=== PATIENT | female | born 1940 | race Two or more races ===

== ENCOUNTER 2016-11-15 21:35 | Emergency (ER) | payer MEDICARE, BC ==
[2016-11-15] MEDS ORDERED: Acetaminophen TAB* 325 MG PO ONE (22:56)
--- NOTE | 2016-11-16 01:14 | ED ---
louis Mao Timothy, scribed for KaitlinRamon on 11/15/16 at 2250 . Lower Extremity - HPI Summary HPI Summary: Kianna Askew is a 76 yo female presenting to [facility] with acute on chronic 5/ 10 right hip and RLE pain. She states she had a mechanical fall at 2030 today. She states movement increases pain. She denies LOC or other injury. Her MHx includes colon CA, scoliosis, arthritis, chronic right hip/lower back pain, HTN. - History of Current Complaint Chief Complaint: EDGeneral Stated Complaint: FALL Time Seen by Provider: 11/15/16 22:32 Hx Obtained From: Patient Mechanism Of Injury: Fall From A Standing Position Onset of Pain: Immediate Onset/Duration: Still Present Severity Initially: Moderate Severity Currently: Moderate Pain Intensity: 5 Pain Scale Used: 0-10 Numeric Timing: Constant Location: Is Discrete @ - right hip and leg Associated Signs And Symptoms: Positive: Knee Pain - right Aggravating Factor(s): Ambulation, Movement, Weight Bearing Alleviating Factor(s): Rest Able to Bear Weight: Yes - barely - Allergies/Home Medications Allergies/Adverse Reactions: Allergies Allergy/AdvReac Type Severity Reaction Status Date / Time No Known Allergies Allergy Verified 09/14/16 06:39 PMH/Surg Hx/FS Hx/Imm Hx Endocrine/Hematology History: Denies: Hx Diabetes, Hx Systemic Lupus Erythematosus Cardiovascular History: Reports: Hx Hypertension Denies: Hx Congestive Heart Failure, Hx Pacemaker/ICD History: Reports: Other Problems/Disorders - OCCASIONAL UTI, LAST TIME 2015 Denies: Hx Dialysis, Hx Renal Disease Musculoskeletal History: Reports: Hx Scoliosis, Other Musculoskeletal History - SCOLIOSIS-RIGHT LOWER BACK PAIN INTO THE HIP AT TIMES Denies: Hx Rheumatoid Arthritis Comment Only: Hx Back Problems - low back pain, Hx Osteoporosis - OSTEOPENIA Sensory History: Reports: Hx Cataracts - BILATERAL, Hx Contacts or Glasses Denies: Hx Hearing Aid Opthamlomology History: Reports: Hx Cataracts - BILATERAL, Hx Contacts or Glasses Psychiatric History: Denies: Hx Panic Disorder - Cancer History Cancer Type, Location and Year: colon Hx Chemotherapy: No Hx Radiation Therapy: No - Surgical History Surgery Procedure, Year, and Place: T&A as child 9 AGE 8; TUBAL LIGATION 1981 ; COLONOSCOPY 03/23/2016 3X POLYPS REMOVED WHICH WERE BENIGN; ADDITIONAL FINDING OF COLONOSCOPY THERE IS A POYPS OF SIGNIFICANCE TO BE REMOVED 04/15/2016 FOUND TO BE CANCEROUS.partial colectomy 03/2016 Hx Anesthesia Reactions: No Infectious Disease History: Denies: Traveled Outside the [place] in Last 30 Days - Family History Known Family History: Negative: Cardiac Disease, Hypertension, Diabetes Family History: NON CONTRIBUTORY - Social History Alcohol Use: Occasionally Alcohol Amount: glass of wine Substance Use Type: Reports: None Smoking Status (MU): Never Smoked Tobacco Review of Systems Constitutional: Negative Eyes: Negative ENT: Negative Cardiovascular: Negative Respiratory: Negative Gastrointestinal: Negative Genitourinary: Negative Musculoskeletal: Other - right hip and RLE pain Skin: Negative Neurological: Negative Psychological: Normal All Other Systems Reviewed And Are Negative: Yes Physical Exam Triage Information Reviewed: Yes Vital Signs On Initial Exam: Initial Vitals Temp Pulse Resp BP Pulse Ox 98.2 F 76 16 153/79 100 11/15/16 21:50 11/15/16 21:50 11/15/16 21:50 11/15/16 21:50 11/15/16 21:50 Vital Signs Reviewed: Yes Appearance: Positive: Well-Appearing, No Pain Distress Skin: Positive: Warm, Skin Color Reflects Adequate Perfusion, Dry, Other - abrasion over right knee Head/Face: Positive: Normal Head/Face Inspection Eyes: Positive: EOMI, OLGA ENT: Positive: Normal ENT inspection, Hearing grossly normal. Negative: Muffled /hoarse voice Neck: Positive: Supple, Nontender Respiratory/Lung Sounds: Positive: Clear to Auscultation, Breath Sounds Present Cardiovascular: Positive: RRR, Pulses are Symmetrical in both Upper and Lower Extremities Abdomen Description: Positive: Nontender, Soft Bowel Sounds: Positive: Present Musculoskeletal: Positive: Pain @ - right hip, lateral aspect of right buttock. Negative: Strength/ROM Intact - restricted ROM at right hip, no neurovascular deficit Neurological: Positive: Normal, Sensory/Motor Intact, Alert, Oriented to Person Place, Time Psychiatric: Positive: Normal Diagnostics - Vital Signs Vital Signs Temp Pulse Resp BP Pulse Ox 11/15/16 21:50 98.2 F 76 16 153/79 100 - Laboratory Lab Statement: Any lab studies that have been ordered have been reviewed, and results considered in the medical decision making process. - Radiology R hip XR Xray Interpretation: No Acute Changes - No acute disease Radiology Interpretation Completed By: ED Physician R knee XR Xray Interpretation: No Acute Changes - No acute disease Radiology Interpretation Completed By: ED Physician - CT Lower extremeties CT Interpretation: No Acute Changes - Impression: no femoral or acetabular fracture seen. No other fracture identified. CT Interpretation Completed By: Radiologist pelvis CT Interpretation: No Acute Changes - Impression: no femoral or acetabular fracture seen. No other fracture identified. CT Interpretation Completed By: Radiologist Re-Evaluation - Re-Evaluation First Eval Re-Evaluation Time: 01:01 Change: Unchanged Comment: Pt is informed of imaging results. She is agreeable to be discharged. Lower Extremity Course/Dx - Course Assessment/Plan: Kianna Askew is a 76 yo female presenting to [facility] with right hip and RLE pain S/P a fall. After review of her negative XR's, and negative CT, as well as review of her lab work, and discussion with Dr. Bailey, she will be discharged home with right hip sprain. - Diagnoses Provider Diagnoses: Fall, Right hip pain, Sprain of right hip - Physician Notifications Discussed Care of Patient With: 0055 - Dr. Bailey (hospitalist) - discussed Pt condition, recommends follow up with orthopedics Discharge - Discharge Plan Condition: Stable Disposition: HOME Patient Education Materials: Hip Pain (ED), Hip Sprain (ED) Referrals: Teresita Santiago MD [Medical Doctor] - 2 Days Additional Instructions: Please follow up with orthopedics regarding your visit to the emergency department today. Return to the emergency department with any new or recurring symptoms. The documentation as recorded by the louis hutchison Timothy accurately reflects the service I personally performed and the decisions made by , Ramon Madrigal.
[2016-11-16 05:59] VITALS: BP 144/72
--- NOTE | 2016-11-16 07:34 | RAD ---
INDICATION: Chronic right hip pain. Fall. COMPARISON: None TECHNIQUE: An AP view of the pelvis and AP views of the hip in neutral and abducted position were obtained FINDINGS: Bones: There are no acute bony findings. There is degenerative change of the lumbar spine with a levoscoliosis. Joint spaces: The hips articulate normally. The joint spaces are preserved. SI joints/symphysis: The SI joints and symphysis are intact. Other: None IMPRESSION: NO ACUTE BONY FINDINGS
--- NOTE | 2016-11-16 07:38 | RAD ---
INDICATION: Right knee pain COMPARISON: None TECHNIQUE: AP, lateral, tunnel, and sunrise views were obtained. FINDINGS: There is minor patellofemoral spurring. There is mild narrowing about the lateral joint space with condylar spurring. There are no additional significant osseous or changes. There is no joint effusion. IMPRESSION: MINOR PATELLOFEMORAL AND LATERAL JOINT SPACE OSTEOARTHRITIS
--- NOTE | 2016-11-16 07:53 | RAD ---
Indication: Increased RIGHT hip and lower extremity pain post fall this evening. History of chronic RIGHT hip pain. Comparison: November 15, 2016 radiographs. Technique: Noncontrast CT pelvis and dedicated small [id number] images of the RIGHT hip. Multiplanar reformation. Report: The RIGHT hip is normally located. No CT evidence for fracture of the RIGHT proximal femur or acetabulum. Negative for pelvic fracture or joint diastases. Mild marginal osteophytosis and minimal axial joint space narrowing. Enthesophytes at the greater trochanter. No suggestion of hip joint effusion. Similar osteoarthritis at the LEFT hip. Advanced lumbar sacral spine degenerative spondylosis and facet joint osteoarthritis. Nonspecific subcutaneous edema at the medial RIGHT gluteal fold. No loculated hematoma in the subcutaneous tissue plane or retroperitoneum evident. Atherosclerotic calcification of the visualized abdominal aorta and iliac arteries without aneurysm in the [id number]. Negative for lymphadenopathy. LEFT lower quadrant large bowel anastomosis noted. No suspicious finding of the visualized bowel loops. Unremarkable visualized distal ureters, urinary bladder, uterus, and adnexal regions. IMPRESSION: No CT evidence for RIGHT hip or pelvic fracture. Mild bilateral hip joint osteoarthritis.
--- NOTE | 2016-11-16 07:53 | RAD ---
Indication: Increased RIGHT hip and lower extremity pain post fall this evening. History of chronic RIGHT hip pain. Comparison: November 15, 2016 radiographs. Technique: Noncontrast CT pelvis and dedicated small [id number] images of the RIGHT hip. Multiplanar reformation. Report: The RIGHT hip is normally located. No CT evidence for fracture of the RIGHT proximal femur or acetabulum. Negative for pelvic fracture or joint diastases. Mild marginal osteophytosis and minimal axial joint space narrowing. Enthesophytes at the greater trochanter. No suggestion of hip joint effusion. Similar osteoarthritis at the LEFT hip. Advanced lumbar sacral spine degenerative spondylosis and facet joint osteoarthritis. Nonspecific subcutaneous edema at the medial RIGHT gluteal fold. No loculated hematoma in the subcutaneous tissue plane or retroperitoneum evident. Atherosclerotic calcification of the visualized abdominal aorta and iliac arteries without aneurysm in the [id number]. Negative for lymphadenopathy. LEFT lower quadrant large bowel anastomosis noted. No suspicious finding of the visualized bowel loops. Unremarkable visualized distal ureters, urinary bladder, uterus, and adnexal regions. IMPRESSION: No CT evidence for RIGHT hip or pelvic fracture. Mild bilateral hip joint osteoarthritis.
== END 2016-11-16 01:29 | disposition home or self-care (01) ==
LOC: ED 21:35
DX: S73.101A Unspecified sprain of right hip, initial encounter (principal); M25.551 Pain in right hip; W19.XXXA Unspecified fall, initial encounter; Y93.9 Activity, unspecified; Y92.9 Unspecified place or not applicable; Y99.9 Unspecified external cause status; S33.5XXD Sprain of ligaments of lumbar spine, subsequent encounter; M16.11 Unilateral primary osteoarthritis, right hip; M41.87 Other forms of scoliosis, lumbosacral region; M51.37 Other intervertebral disc degeneration, lumbosacral region; M47.897 Other spondylosis, lumbosacral region; X58.XXXD Exposure to other specified factors, subsequent encounter
CPT/HCPCS: 72110; 72192; 99282; A9270-GY

== ENCOUNTER 2018-11-28 20:18 | Emergency (ER) | payer MEDICARE, OTHER ==
--- OUTSIDE RECORDS SUMMARY | 2018-11-28 20:51 | XMS REPORT | Continuity of Care Document ---
:1940 External Reference #:[id number] Author Name Farrah Conroy Care Team Providers Name Role Phone Patricia Joe MD Primary Care Physician Unavailable Payers Date Identification Numbers Payment Provider Subscriber Policy Number: [id number] Medicare Kianna Askew PayID: [id number] [address] [place] [address] Policy Number: [id number] [facility] Kianna Salase PayID: [id number] [address] [place] [address] Effective: 2006 Policy Number: [id number] Medicare Kianna Askew Expires: 2018 PayID: [id number] [address] [place] [address] Effective: 2016 Policy Number: [id number] [facility] Kianna Farrisgie Ins Onset: 2016 Group Number: [id number] PayID: [id number] JUAN JOSE Barnes [id number] Expires: 2018 Policy Number: [id number] [employer]na [employer] Group Number: [id number] [address] PayID: [id number] [place] [address] PayID: [id number] Medicare D - Drug Plan Kianna Askew Advance Directives Type Date Description Status Comment MOLST 04/05/2018 MOLST Current and Verified Problems Date Description Provider Status Onset: 03/25/2016 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 T3 with 29 (-) lymph nodes. T3N0M0 adenocarcinoma. Is seeing Dr. Garcia Onset: 10/18/2007 Benign essential hypertension Colt Beaulieu M.D.,FACP Active Onset: 07/19/2016 Thyroid nodule Roosevelt Reyes NP Active Note: stable solid L thyroid nodule on 07/19/16 u/s radiolagist recommend f/ u 6 mo w/ repeat u/s Onset: 11/10/2016 Scoliosis of lumbar spine Denise Stern M.D. 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 Onset: 04/05/2018 Postmenopausal osteopenia Meli Power M.D.,FACP Onset: 04/25/2016 Essential hypertension Roosevelt Reyes NP Inactive Inactive: 10/11/2016 Onset: 10/18/2007 Osteochondropathy Colt Beaulieu M.D.,FACP Inactive Inactive: 04/05/2018 Note: low BMD forearm 2005 Onset: 11/01/2012 Nuclear cataract Colt Beaulieu M.D.,FACP Resolved Resolved: 10/11/2016 Family History Date Family Member(s) Observation Comments : (age 52 Father due to [place] Years) Father due to Heart () - in 40s, Disease ?RF : (age 84 Mother due to [place] Years) Siblings 1 First Brother Hypertension First Brother Leukemia ALL Social History Type Date Description Comments Sex Unknown Marital Status Significant Other Lives With Partner 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 Omeprazole 05/30/ Active Capsules 20mg 30cap 1 by mouth Elieser Grissom 2018 s every day MD Favian Vitamin D / Active Tablets 1000Unit 1 by mouth Unknown 0000 everyday Fish Oil / Active Capsules 1200mg 1 by mouth Unknown 0000 daily Tylenol / Active Capsules 325mg 2 tablets Unknown 0000 every 4 hours as needed for pain Myrbetriq / Active Tablets 50mg 1 by mouth Unknown 0000 ER 24HR every day (rx'd by Dr. Mina) Ibuprofen / Active Tablets 200mg as needed, Unknown 0000 alternting with tylenol Cyclobenzaprine 07/18/ Hx Tablets 5mg 14tab take one M54.41 Zsofia HCL 2018 - s tablet by Yan, 10/10/ mouth 3x [employer] 2019 daily as needed for back pain Aspercreme 07/18/ Hx Patches 4% 10uni 1 path M54.41 Zsofia Lidocaine 2018 - ts daily for Yan, 11/09/ back pain [employer] 2018 G89.4 Suprep 05/02/2018 - Hx Solution 17.5-3.13-1.6GM/180ML 1units Take as Elieser Grissom Bowel Prep 11/09/2018 directed Андрей Ballesteros the day before procedure Tramadol 04/05/2018 - Hx Tablets 50mg 30tabs Take 1 tab M5 Zsofia HCL 10/10/2018 po qday, do 4. Yan, not drive [address] SAFET[employer] NET [employer] when taking this medication. M47.26 Ciprofloxacin HCL 11/03/2017 - Hx Tablets 250mg 10tabs take 1 tab R30.0 Zsofia 02/28/2018 by mouth Yan, twice a day [employer] for 5 days Omeprazole 08/28/2017 - Hx Capsules 20mg 90caps 1 by mouth R63.4 Carmen Avelar 02/28/2018 every day Sharron Beaulieu, for 2 wks M.D.,FACP then prn Felodipine ER 08/28/2017 - Hx Tablets ER 2.5mg 90tabs Take One I10 Zsofia 04/05/2018 24HR Tablet By Yan, Mouth Every [employer] Day Lisinopril 07/21/2017 - Hx Tablets 5mg 90tabs 1 by mouth I10 Colt 07/27/2017 every day Sharron Beaulieu M.D.,FACP Felodipine ER 03/21/2017 - Hx Tablets ER 2.5mg 90tabs 1 by mouth I10 Colt 07/21/2017 24HR every day Sharron Beaulieu M.D.,JOHNP Amoxicillin 03/08/2017 - Hx Tablets 500mg 40tabs 2 tabs by Colt 03/18/2017 mouth twice Sharron Beaulieu, a day for Kerri,JOHNP 10 days Lumbo Sacral 01/25/2017 - Hx M41.26 Dirk Corset, 10-12 02/28/2018 Doroat, Inches High With Kerri Some Support Cyclobenzaprine 11/10/2016 - Hx Tablets 5mg 10tabs take one S33.5xx Denise HCL 01/06/2017 tablet by Kraig Stern, mouth at M.D. night as needed for spasms Doxycycline 08/16/2016 - Hx Capsules 100mg 2caps 2 tablets x Roosevelt Hyclate 08/17/2016 1 day Kazakh, [employer] Triamcinolone 05/02/2016 - Hx Cream 0.1% 30gm apply thin N76.0 Roosevelt Acetonide 05/16/2016 layer Kazakh, topically [employer] COORDINATOR twice a day to affected area [id number] Tylenol Extra 03/03/2016 - Hx Tablets 500mg 1 tab po M54.41 Roosevelt Strength 05/02/2016 qid every Kazakh, 4-6 hours [employer] COORDINATOR prn pain Amoxicillin/Clavul 08/28/2015 - Hx Tablets 875-125 20tabs 1 tablet by J01.90 Roosevelt anate Potassium 09/07/2015 mg mouth twice Kazakh, a day x's [employer] PRO[employer] COORDINATOR 10 days Fluconazole 01/06/2015 - Hx Tablets 150mg 2tabs 1 tablet by 616.10 Roosevelt 01/13/2015 mouth daily Kazakh, today, then COMM[employer] PROGRAM COORDINATOR repeat in 1 week. Doxycycline 03/08/2013 - Hx Tablets 100mg 4tabs 2 tabs po Colt Hyclate 05/10/2013 x1 then prn [facility] Felodipine ER 11/02/2010 - Hx Tablets ER 5mg 90tabs Take One I10 Carmen Avelar 03/21/2017 24HR Tablet By Sharron Beaulieu, Mouth Every M.D.,FACP Morning Fish Oil 05/21/2010 - Hx Capsules 1000mg 60caps 1 po qd Colt 05/29/2014 Sharron Beaulieu M.D.,FACP Vitamin B12 05/21/2010 - Hx Tablets ER 1000mcg 90tabs po qd Colt 02/27/2012 Sharron Beaulieu M.D.,FACP Vitamin D 10/30/2007 - Hx Capsules 400Unit qd PO Colt 11/01/2012 Sharron Beaulieu M.D.,FACP Felodipine ER 10/18/2007 - Hx Tablets ER 5mg 90tabs 1 PO qd Colt 11/02/2010 24HR Sharron Beaulieu M.D.,FACP Calcium 600-D 10/18/2007 - Hx Tablets 600/200 180tabs PO bid Colt 11/01/2012 Sharron Beaulieu M.D.,FACP Calcium 1200 + D - Hx Chewtabs 1200-10 30units 1 po qd Unknown 06/25/2013 00mg-Un it Vitamin D3 High - Hx Capsules 2000 1 tab daily Unknown Potency 07/18/2016 Ibuprofen - Hx Tablets 200mg as needed Unknown 05/02/2016 Fish Oil Burp-Less - Hx Capsules 1000mg Daily Unknown 01/06/2017 Calcium 600 - Hx Tablets 600mg 1 by mouth Unknown 04/23/2016 every day Probiotic - Hx Capsules 2 by mouth Unknown 09/06/2016 every day Multi Complete - Hx Capsules daily Unknown 09/06/2016 Darifenacin - Hx Tablets ER 7.5mg 1 tab daily Unknown Hydrobromide ER 11/15/2016 24HR (taking 15mg daily at this time) Ibuprofen - Hx Capsules 200mg as needed Unknown 06/09/2017 Darifenacin - Hx Tablets ER 15mg Take One Unknown Hydrobromide ER 01/06/2017 24HR Tablet By Mouth Every Day Darifenacin - Hx Tablets ER 7.5mg Take One Unknown Hydrobromide ER 07/27/2017 24HR Tablet By Mouth Every Day Immunizations CPT Code Status Date Vaccine Reaction Lot # [id number] Given 04/05/2018 Tetanus And Diptheria (Td) [id number] For Adult Use Preservative Free 54164 Given 08/03/2017 Influenza Virus Vaccine, Quadrivalent, Split, Preservative Free 86273 Given 08/14/2016 Influ Virus Vaccine, Quadrivalent, Split Virus, [place] [address] Given 07/16/2015 Influenza Virus Vaccine, no reaction noted. Pt [id number] Quadrivalent, Split, consented to flu Preservative Free injection and NYSIIS. 73555 Given 07/16/2015 Pneumococcal Conjugate No reaction noted [id number] Vaccine 13 Valent For Intramuscular Use 80386 Given 06/25/2013 Flu Vaccine Split Virus [id number] Preservative Free For Indiv 3Yr Older 07584 Given 07/04/2012 Influenza Virus 3Yrs & Over 73410 Given 01/12/2012 Tdap - [id number] Tetanus/Diptheria/Acellular Pertussis Q2038 Given 06/13/2011 Fluzone Vaccine [id number] 75529 Given 06/03/2008 Zoster (Zostavax) 37299 Given 07/15/2003 Pneumonia Vaccine 64823 Given 07/15/2003 Pneumonia Vaccine Vital Signs Date Vital Result Comment 11/23/2018 3:03pm Height 63.5 inches 5'3.50" Weight 132.38 lb Heart Rate 73 /min BP Systolic Sitting 186 mmHg BP Diastolic Sitting 95 mmHg BP Systolic Standing 132 mmHg pulse - 78 BP Diastolic Standing 84 mmHg pulse - 78 BP Systolic Lying Down 145 mmHg pulse - 72 BP Diastolic Lying Down 98 mmHg pulse - 72 BP Systolic Recheck 150 mmHg pulse - 72 BP Diastolic Recheck 92 mmHg pulse - 72 Body Temperature 96.3 F O2 % BldC Oximetry 98 % BMI (Body Mass Index) 23.1 kg/m2 11/20/2018 11:42am Height 63.5 inches 5'3.50" Weight 133.00 lb Heart Rate 69 /min BP Systolic 171 mmHg 183/90 home BP machine BP Diastolic 88 mmHg 183/90 home BP machine Body Temperature 96.3 F O2 % BldC Oximetry 99 % BMI (Body Mass Index) 23.2 kg/m2 11/09/2018 11:43am Height 63.5 inches 5'3.50" Weight 131.00 lb Heart Rate 78 /min BP Systolic 121 mmHg BP Diastolic 71 mmHg Body Temperature 96.9 F O2 % BldC Oximetry 98 % BMI (Body Mass Index) 22.8 kg/m2 10/10/2018 9:47am Height 63.5 inches 5'3.50" Weight 130.38 lb Heart Rate 76 /min BP Systolic 118 mmHg BP Diastolic 72 mmHg Body Temperature 96.5 F BMI (Body Mass Index) 22.7 kg/m2 07/25/2018 3:17pm Height 63.5 inches 5'3.50" Weight 122.31 lb Heart Rate 79 /min BP Systolic Sitting 118 mmHg BP Diastolic Sitting 70 mmHg O2 % BldC Oximetry 97 % BMI (Body Mass Index) 21.3 kg/m2 07/18/2018 9:21am Height 63.5 inches 5'3.50" Weight 122.38 lb Heart Rate 73 /min BP Systolic Sitting 118 mmHg BP Diastolic Sitting 78 mmHg O2 % BldC Oximetry 98 % BMI (Body Mass Index) 21.3 kg/m2 06/18/2018 2:26pm Height 63.5 inches 5'3.50" Weight 124.38 lb Heart Rate 76 /min BP Systolic 112 mmHg BP Diastolic 67 mmHg Respiratory Rate 16 /min Body Temperature 97.6 F Pain Level 0 O2 % BldC Oximetry 99 % BMI (Body Mass Index) 21.7 kg/m2 04/05/2018 9:45am Height 63.5 inches 5'3.50" Weight 123.00 lb Heart Rate 75 /min BP Systolic Sitting 118 mmHg BP Diastolic Sitting 58 mmHg Body Temperature 96.5 F O2 % BldC Oximetry 99 % BMI (Body Mass Index) 21.4 kg/m2 03/30/2018 10:42am Height 65 inches 5'5" Weight 129.00 lb BP Systolic Sitting 120 mmHg BP Diastolic Sitting 60 mmHg BMI (Body Mass Index) 21.5 kg/m2 02/28/2018 11:11am Height 65 inches 5'5" Weight 129.00 lb BP Systolic Sitting 122 mmHg BP Diastolic Sitting 78 mmHg Pain Level 6 BMI (Body Mass Index) 21.5 kg/m2 11/03/2017 4:12pm BP Systolic Sitting 138 mmHg BP Diastolic Sitting 84 mmHg 11/03/2017 1:58pm Weight 126.00 lb Heart Rate 80 /min BP Systolic Sitting 150 mmHg BP Diastolic Sitting 82 mmHg Body Temperature 96.5 F O2 % BldC Oximetry 94 % 09/26/2017 10:59am Weight 128.00 lb BP Systolic Sitting 100 mmHg BP Diastolic Sitting 50 mmHg Body Temperature 97.4 F 08/28/2017 1:28pm Weight 128.00 lb Heart Rate 76 /min BP Systolic Sitting 152 mmHg BP Diastolic Sitting 80 mmHg Body Temperature 96.4 F O2 % BldC Oximetry 96 % 07/27/2017 3:26pm Weight 123.00 lb Heart Rate 72 /min BP Systolic Sitting 110 mmHg BP Diastolic Sitting 66 mmHg Body Temperature 97.1 F O2 % BldC Oximetry 96 % 03/21/2017 3:17pm Height 63.5 inches 5'3.50" Weight 128.75 lb Heart Rate 69 /min BP Systolic Sitting 134 mmHg BP Diastolic Sitting 80 mmHg BP Systolic Recheck 130 mmHg BP Diastolic Recheck 82 mmHg Body Temperature 96.6 F O2 % BldC Oximetry 98 % BMI (Body Mass Index) 22.4 kg/m2 03/08/2017 10:45am Weight 130.25 lb Heart Rate 69 /min BP Systolic 116 mmHg BP Diastolic 68 mmHg Body Temperature 97.5 F O2 % BldC Oximetry 99 % 01/25/2017 8:43am Height 64.5 inches 5'4.50" Weight 132.00 lb Heart Rate 79 /min BP Systolic 110 mmHg BP Diastolic 68 mmHg Respiratory Rate 16 /min Body Temperature 97.5 F Pain Level 7 BMI (Body Mass Index) 22.3 kg/m2 01/06/2017 10:34am Weight 134.00 lb Heart Rate 76 /min BP Systolic Sitting 110 mmHg BP Diastolic Sitting 72 mmHg Body Temperature 97.7 F O2 % BldC Oximetry 97 % 11/15/2016 9:46am Weight 137.75 lb Heart Rate 72 /min BP Systolic 130 mmHg BP Diastolic 80 mmHg Body Temperature 96.6 F O2 % BldC Oximetry 98 % 11/10/2016 8:21am Weight 135.00 lb Heart Rate 70 /min BP Systolic Sitting 178 mmHg BP Diastolic Sitting 90 mmHg Body Temperature 97.3 F O2 % BldC Oximetry 98 % 10/11/2016 1:32pm Height 64 inches 5'4" Weight 137.00 lb Heart Rate 66 /min BP Systolic 140 mmHg BP Diastolic 80 mmHg Body Temperature 97.6 F O2 % BldC Oximetry 98 % BMI (Body Mass Index) 23.5 kg/m2 09/06/2016 2:03pm Weight 136.00 lb Heart Rate 78 /min BP Systolic Sitting 114 mmHg BP Diastolic Sitting 70 mmHg Body Temperature 97.4 F 07/18/2016 10:36am Weight 135.25 lb Heart Rate 90 /min BP Systolic Sitting 120 mmHg BP Diastolic Sitting 70 mmHg Body Temperature 97.3 F O2 % BldC Oximetry 98 % 05/02/2016 2:04pm Height 64 inches 5'4" Weight 129.25 lb Heart Rate 70 /min BP Systolic Sitting 118 mmHg BP Diastolic Sitting 66 mmHg Body Temperature 98.6 F O2 % BldC Oximetry 96 % BMI (Body Mass Index) 22.2 kg/m2 04/25/2016 1:24pm Height 64 inches 5'4" Weight 129.25 lb Heart Rate 70 /min BP Systolic 124 mmHg BP Diastolic 70 mmHg Body Temperature 98.1 F O2 % BldC Oximetry 97 % BMI (Body Mass Index) 22.2 kg/m2 03/03/2016 3:17pm Height 64 inches 5'4" Weight 136.00 lb Heart Rate 68 /min BP Systolic Sitting 110 mmHg BP Diastolic Sitting 68 mmHg Body Temperature 96.9 F O2 % BldC Oximetry 98 % BMI (Body Mass Index) 23.3 kg/m2 02/18/2016 12:55pm Height 64 inches 5'4" Weight 140.00 lb Heart Rate 66 /min BP Systolic Sitting 134 mmHg BP Diastolic Sitting 82 mmHg Body Temperature 98.7 F O2 % BldC Oximetry 98 % BMI (Body Mass Index) 24.0 kg/m2 08/28/2015 9:58am Height 64 inches 5'4" Weight 138.00 lb Heart Rate 64 /min BP Systolic Sitting 138 mmHg BP Diastolic Sitting 72 mmHg Body Temperature 96.9 F O2 % BldC Oximetry 95 % BMI (Body Mass Index) 23.7 kg/m2 07/16/2015 4:32pm Height 64 inches 5'4" Weight 138.25 lb Heart Rate 64 /min BP Systolic Sitting 132 mmHg BP Diastolic Sitting 82 mmHg Respiratory Rate 14 /min Body Temperature 97.3 F tympanic Pain Level 1 O2 % BldC Oximetry 94 % room air. was 86 and pt took a deep breath. 02 up BMI (Body Mass Index) 23.7 kg/m2 01/06/2015 11:17am Weight 141.00 lb Heart Rate 70 /min BP Systolic Sitting 128 mmHg BP Diastolic Sitting 74 mmHg Body Temperature 97.8 F O2 % BldC Oximetry 98 % 07/15/2014 9:05am Weight 142.50 lb Heart Rate 68 /min BP Systolic Sitting 130 mmHg BP Diastolic Sitting 78 mmHg Body Temperature 96.8 F 05/29/2014 10:40am Weight 141.75 lb Heart Rate 64 /min BP Systolic Sitting 126 mmHg BP Diastolic Sitting 68 mmHg Body Temperature 96.6 F 06/25/2013 11:02am Weight 140.00 lb Heart Rate 60 /min BP Systolic Sitting 120 mmHg BP Diastolic Sitting 62 mmHg 05/10/2013 3:58pm Height 64.25 inches 5'4.25" Weight 141.00 lb Heart Rate 80 /min BP Systolic Sitting 120 mmHg BP Diastolic Sitting 64 mmHg BMI (Body Mass Index) 24.0 kg/m2 11/01/2012 9:37am Height 64.75 inches 5'4.75" Weight 145.00 lb Heart Rate 64 /min BP Systolic 135 mmHg BP Diastolic 70 mmHg Respiratory Rate 14 /min BMI (Body Mass Index) 24.3 kg/m2 02/27/2012 10:02am Height 65 inches 5'5" Weight 145.00 lb Heart Rate 72 /min BP Systolic Sitting 124 mmHg BP Diastolic Sitting 70 mmHg BMI (Body Mass Index) 24.1 kg/m2 01/12/2012 2:17pm Height 65 inches 5'5" Weight 143.00 lb Heart Rate 68 /min BP Systolic Sitting 128 mmHg BP Diastolic Sitting 78 mmHg BMI (Body Mass Index) 23.8 kg/m2 06/13/2011 9:06am Height 65 inches 5'5" Weight 145.00 lb Heart Rate 78 /min BP Systolic Sitting 122 mmHg BP Diastolic Sitting 60 mmHg BMI (Body Mass Index) 24.1 kg/m2 05/21/2010 10:48am Height 65 inches 5'5" Weight 139.00 lb Heart Rate 62 /min BP Systolic Sitting 125 mmHg BP Diastolic Sitting 72 mmHg BMI (Body Mass Index) 23.1 kg/m2 04/29/2009 1:15pm Weight 144.00 lb Heart Rate 76 /min BP Systolic Sitting 120 mmHg BP Diastolic Sitting 64 mmHg Respiratory Rate 16 /min 07/15/2008 2:39pm Height 65 inches 5'5" Weight 144.00 lb Heart Rate 74 /min BP Systolic Sitting 122 mmHg BP Diastolic Sitting 68 mmHg BMI (Body Mass Index) 24.0 kg/m2 04/15/2008 9:13am Height 65 inches 5'5" Weight 145.00 lb Heart Rate 72 /min BP Systolic Sitting 118 mmHg BP Diastolic Sitting 62 mmHg BMI (Body Mass Index) 24.1 kg/m2 10/18/2007 8:43am Height 65 inches 5'5" Weight 146.00 lb Heart Rate 74 /min BP Systolic Sitting 132 mmHg BP Diastolic Sitting 72 mmHg BMI (Body Mass Index) 24.3 kg/m2 Results Test Date Facility Test Result H/L Range Note Lipid Profile 11/21/2018 [facility] Triglycerides 49 mg/dL 1, 2 (Trig/Chol/HDL) [address] [place] [address] [phone] Cholesterol 218 mg/dL 3 HDL Cholesterol 93.3 mg/dL 4 LDL Cholesterol 115 mg/dL 5 Laboratory test 11/21/2018 [facility] TSH (Thyroid 3.25 mcIU/mL N 0.34-5.[address] Stim Horm) [place] [address] [phone] Comp Metabolic 11/21/2018 [facility] Sodium 136 mmol/L N 135- [address] [place] [address] [phone] Potassium 4.1 mmol/L N 3.5-5.0 Chloride 98 mmol/L Low 101-111 Co2 Carbon Dioxide 33 mmol/L High 22-32 Anion Gap 5 mmol/L N 2-11 Glucose 95 mg/dL N 70-100 Blood Urea Nitrogen 20 mg/dL N 6-24 Creatinine 0.79 mg/dL N 0.51-0.95 BUN/Creatinine Ratio 25.3 High 8-20 Calcium 9.9 mg/dL N 8.6-10.3 Total Protein 7.0 g/dL N 6.4-8.9 Albumin 4.3 g/dL N 3.2-5.2 Globulin 2.7 g/dL N 2-4 Albumin/Globulin Ratio 1.6 N 1-3 Total Bilirubin 0.40 mg/dL N 0.2-1.0 Alkaline Phosphatase 97 U/L N 34-104 Alt 18 U/L N 7-52 Ast 20 U/L N 13-39 Egfr Non- 70.6 >60 Egfr 85.4 >60 7 BUN/Creat/GFR 07/06/2018 [facility] Poc Blood Urea 21 mg/dL N 8-[address] [address] [phone] Poc Creatinine 1.0 mg/dL N 0.6-1.3 8 Poc BUN/Creatinine Ratio 21.0 High 8-20 Egfr Non- 53.8 >60 Egfr 65.1 >60 9 Laboratory test 06/13/2018 [facility] Surgical Pathology SEE 10, [address] [place] [address] BELOW [phone] Laboratory test 01/15/2018 [facility] Carcinoembryonic 2.8 ng/ mL N 0.1 [address] Antigen Cea -5. [place] [address] 0 [phone] Urine Culture And 11/03/2017 [facility] Urine Culture SEE 13, [address] [place] [address] BELOW [phone] Ua Routine 11/03/2017 [employer] [facility] Ua Specific [place] 1.015 Ua PH 5 Ua Color dark yellow Ua Appera cloudy Ua WBC ++ Ua Protein +30 Ua Glucose normal Ua Ketones neg Ua Bilirubin neg Ua Urobilinogen normal Ua Nitrite neg Ua Occult Blood large Laboratory 10/10/2017 [facility] Carcinoembryonic 2.5 ng/mL N 0.1-5.0 15 test finding [address] [place] [address] [phone] Laboratory 10/10/2017 [facility] Magnesium 2.1 mg/dL N 1.9- 2.7 test finding [address] [place] [address] [phone] Laboratory 08/22/2017 [facility] Surgical Pathology SEE RESULT 16 test finding [address] [place] [address] [phone] Laboratory 08/22/2017 [facility] Clotest SEE RESULT 17 test finding [address] [place] [address] [phone] Myasthenia 08/08/2017 [facility] MG Lambert-Eaton See 18 Gravis (), [address] Interpret [place] [address] [phone] Acetylcholine Receptor Binding 0.00 nmol/L <=0.02 19 Acetylcholine Recept Mod Ab 0 % 20 Anti-Striated Muscle Antibody Negative titer <1:120 21 Laboratory test finding 08/08/2017 [facility] Lipase 17 U/L N 11.0-82.[address] [place] [address] [phone] Glucose 99 mg/dL N 70-100 23 Insulin Level 7.7 mcIU/mL 2.6 - 24.9 24 Laboratory test 07/26/2017 [facility] Erythrocyte Sed 7 mm/Hr N 0-[address] [place] [address] [phone] Comp Metabolic 07/26/2017 [facility] Sodium 137 mmol/L N 133- [address] [place] [address] [phone] Potassium 4.5 mmol/L N 3.5-5.0 Chloride 99 mmol/L Low 101-111 Co2 Carbon Dioxide 34 mmol/L High 22-32 Anion Gap 4 mmol/L N 2-11 Glucose 86 mg/dL N 70-100 Blood Urea Nitrogen 21 mg/dL N 6-24 Creatinine 0.90 mg/dL N 0.51-0.95 BUN/Creatinine Ratio 23.3 High 8-20 Calcium 9.4 mg/dL N 8.6-10.3 Total Protein 6.5 g/dL N 6.4-8.9 Albumin 3.9 g/dL N 3.2-5.2 Globulin 2.6 g/dL N 2-4 Albumin/Globulin Ratio 1.5 N 1-3 Total Bilirubin 0.40 mg/dL N 0.2-1.0 Alkaline Phosphatase 60 U/L N 34-104 Alt 12 U/L N 7-52 Ast 17 U/L N 13-39 Egfr Non- 60.9 N >60 Egfr 78.3 N >60 25 Laboratory test 07/26/2017 [facility] T3 Total 1.07 ng/mL N 0.87-1.[address] [place] [address] [phone] TSH (Thyroid Stim Horm) 2.95 mcIU/mL N 0.34-5.60 CBC Auto Diff 07/26/2017 [facility] White Blood 4.9 10^3/uL N 3.5-10.[address] [place] [address] [phone] Red Blood Count 4.19 10^6/uL N 4.0-5.4 Hemoglobin 13.7 g/dL N 12.0-16.0 Hematocrit 40 % N 35-47 Mean Corpuscular Volume 96 fL N 80-97 Mean Corpuscular Hemoglobin 33 pg High 27-31 Mean Corpuscular HGB Conc 34 g/dL N 31-36 Red Cell Distribution Width 12 % N 10.5-15 Platelet Count 211 10^3/uL N 150-450 Mean Platelet Volume 9 um3 N 7.4-10.4 Abs Neutrophils 3.5 10^3/uL N 1.5-7.7 Abs Lymphocytes 0.7 10^3/uL Low 1.0-4.8 Abs Monocytes 0.5 10^3/uL N 0-0.8 Abs Eosinophils 0 10^3/uL N 0-0.6 Abs Basophils 0.1 10^3/uL N 0-0.2 Abs Nucleated RBC 0.01 10^3/uL N Granulocyte % 72.0 % N 38-83 Lymphocyte % 15.3 % Low 25-47 Monocyte % 11.0 % High 1-9 Eosinophil % 0.6 % N 0-6 Basophil % 1.1 % N 0-2 Nucleated Red Blood Cells % 0.2 N Laboratory test 07/12/2017 [facility] Point of Care 75 mg/dL N 70-[address] [place] [address] [phone] CBC Auto Diff 06/14/2017 [facility] White Blood 5.7 10^3/uL N 3.5-10.[address] [place] [address] [phone] Red Blood Count 4.03 10^6/uL N 4.0-5.4 Hemoglobin 13.1 g/dL N 12.0-16.0 Hematocrit 39 % N 35-47 Mean Corpuscular Volume 97 fL N 80-97 Mean Corpuscular Hemoglobin 33 pg High 27-31 Mean Corpuscular HGB Conc 34 g/dL N 31-36 Red Cell Distribution Width 12 % N 10.5-15 Platelet Count 237 10^3/uL N 150-450 Mean Platelet Volume 9 um3 N 7.4-10.4 Abs Neutrophils 4.4 10^3/uL N 1.5-7.7 Abs Lymphocytes 0.8 10^3/uL Low 1.0-4.8 Abs Monocytes 0.4 10^3/uL N 0-0.8 Abs Eosinophils 0.1 10^3/uL N 0-0.6 Abs Basophils 0.1 10^3/uL N 0-0.2 Abs Nucleated RBC 0 10^3/uL N Granulocyte % 77.1 % N 38-83 Lymphocyte % 14.3 % Low 25-47 Monocyte % 6.4 % N 1-9 Eosinophil % 1.1 % N 0-6 Basophil % 1.1 % N 0-2 Nucleated Red Blood Cells % 0.1 N Laboratory test 06/14/2017 [facility] TSH (Thyroid 1.33 mcIU/mL N 0.34-5.[address] Stim Horm) [place] [address] [phone] Vitamin B12 479 pg/mL N 180-914 27 Basic Metabolic Panel 05/23/2017 [facility] Sodium 137 mmol/L N 133-[address] [place] [address] [phone] Potassium 4.2 mmol/L N 3.5-5.0 Chloride 100 mmol/L Low 101-111 Co2 Carbon Dioxide 34 mmol/L High 22-32 Anion Gap 3 mmol/L N 2-11 Glucose 99 mg/dL N 70-100 Blood Urea Nitrogen 18 mg/dL N 6-24 Creatinine 0.75 mg/dL N 0.51-0.95 BUN/Creatinine Ratio 24.0 High 8-20 Calcium 9.1 mg/dL N 8.6-10.3 Egfr Non- 75.1 N >60 Egfr 96.6 N >60 28 Laboratory 05/23/2017 [facility] Carcinoembryonic 3.2 ng/mL N 0.1-5.0 [address] [place] [address] [phone] Laboratory 02/14/2017 [facility] Surgical Pathology SEE 30 test finding [address] [place] [address] BELOW [phone] CBC Auto Diff 02/02/2017 [facility] White Blood Count 7.8 N 3.5-10.[address] 10^3/[place] [address] [phone] Red Blood Count 4.39 10^6/uL N 4.0-5.4 Hemoglobin 14.1 g/dL N 12.0-16.0 Hematocrit 43 % N 35-47 Mean Corpuscular Volume 97 fL N 80-97 Mean Corpuscular Hemoglobin 32 pg High 27-31 Mean Corpuscular HGB Conc 33 g/dL N 31-36 Red Cell Distribution Width 12 % N 10.5-15 Platelet Count 211 10^3/uL N 150-450 Mean Platelet Volume 9 um3 N 7.4-10.4 Abs Neutrophils 6.2 10^3/uL N 1.5-7.7 Abs Lymphocytes 0.8 10^3/uL Low 1.0-4.8 Abs Monocytes 0.6 10^3/uL N 0-0.8 Abs Eosinophils 0.1 10^3/uL N 0-0.6 Abs Basophils 0.1 10^3/uL N 0-0.2 Abs Nucleated RBC 0 10^3/uL N Granulocyte % 79.9 % N 38-83 Lymphocyte % 9.9 % Low 25-47 Monocyte % 8.1 % N 1-9 Eosinophil % 1.0 % N 0-6 Basophil % 1.1 % N 0-2 Nucleated Red Blood Cells % 0 N Laboratory 02/02/2017 [facility] Carcinoembryonic 3.2 N 0.1- 5.0 31 test finding [address] Antigen Cea ng/[place] [address] [phone] Basic 01/13/2017 [facility] Sodium 132 Low 133-[address] mmol/[place] [address] [phone] Potassium 4.7 mmol/L N 3.5-5.0 Chloride 95 mmol/L Low 101-111 Co2 Carbon Dioxide 32 mmol/L N 22-32 Anion Gap 5 mmol/L N 2-11 Glucose 92 mg/dL N 70-100 Blood Urea Nitrogen 16 mg/dL N 6-24 Creatinine 0.71 mg/dL N 0.51-0.95 BUN/Creatinine Ratio 22.5 High 8-20 Calcium 9.4 mg/dL N 8.6-10.3 Egfr Non- 80.3 N >60 Egfr 103.2 N >60 32 Laboratory test 01/13/2017 [facility] TSH (Thyroid 1.85 mcIU/mL N 0.34-5.[address] Stim Horm) [place] [address] [phone] Vitamin B12 455 pg/mL N 180-914 33 CBC Auto Diff 01/13/2017 [facility] White Blood 5.8 10^3/uL N 3.5-10.[address] [place] [place] [address] [phone] Red Blood Count 4.34 10^6/uL N 4.0-5.4 Hemoglobin 14.0 g/dL N 12.0-16.0 Hematocrit 42 % N 35-47 Mean Corpuscular Volume 96 fL N 80-97 Mean Corpuscular Hemoglobin 32 pg High 27-31 Mean Corpuscular HGB Conc 34 g/dL N 31-36 Red Cell Distribution Width 12 % N 10.5-15 Platelet Count 187 10^3/uL N 150-450 Mean Platelet Volume 10 um3 N 7.4-10.4 Abs Neutrophils 4.5 10^3/uL N 1.5-7.7 Abs Lymphocytes 0.7 10^3/uL Low 1.0-4.8 Abs Monocytes 0.5 10^3/uL N 0-0.8 Abs Eosinophils 0.1 10^3/uL N 0-0.6 Abs Basophils 0.1 10^3/uL N 0-0.2 Abs Nucleated RBC 0 10^3/uL N Granulocyte % 76.6 % N 38-83 Lymphocyte % 12.5 % Low 25-47 Monocyte % 8.0 % N 1-9 Eosinophil % 1.4 % N 0-6 Basophil % 1.5 % N 0-2 Nucleated Red Blood Cells % 0 N Laboratory test 05/02/2016 [facility] Gardnerella/Yeast: SEE RESULT [address] Vaginal [place] [address] [phone] Laboratory test 05/02/2016 [facility] Cytology SEE RESULT [address] [place] [address] [phone] Trichomonas Vaginalis Rna Negative N Negative 36 HPV Rna Ww/Reflex Genotype Negative N Negative 37 CBC Auto Diff 04/25/2016 [facility] White Blood 8.4 10^3/uL N 3.5-10.[address] [place] [address] [phone] Red Blood Count 3.93 10^6/uL Low 4.0-5.4 Hemoglobin 12.8 g/dL N 12.0-16.0 Hematocrit 38 % N 35-47 Mean Corpuscular Volume 97 fL N 80-97 Mean Corpuscular Hemoglobin 33 pg High 27-31 Mean Corpuscular HGB Conc 34 g/dL N 31-36 Red Cell Distribution Width 13 % N 10.5-15 Platelet Count 262 10^3/uL N 150-450 Mean Platelet Volume 9 um3 N 7.4-10.4 Abs Neutrophils 6.1 10^3/uL N 1.5-7.7 Abs Lymphocytes 1.3 10^3/uL N 1.0-4.8 Abs Monocytes 0.6 10^3/uL N 0-0.8 Abs Eosinophils 0.1 10^3/uL N 0-0.6 Abs Basophils 0.3 10^3/uL High 0-0.2 Abs Nucleated RBC 0 10^3/uL N Granulocyte % 73.1 % N 38-83 Lymphocyte % 15.1 % Low 25-47 Monocyte % 7.2 % N 1-9 Eosinophil % 1.2 % N 0-6 Basophil % 3.4 % High 0-2 Nucleated Red Blood Cells % 0 N CBC Auto Diff 04/25/2016 [facility] White Blood 5.5 10^3/uL N 3.5-10.[address] [place] [address] [phone] Red Blood Count 3.95 10^6/uL Low 4.0-5.4 Hemoglobin 12.8 g/dL N 12.0-16.0 Hematocrit 38 % N 35-47 Mean Corpuscular Volume 97 fL N 80-97 Mean Corpuscular Hemoglobin 33 pg High 27-31 Mean Corpuscular HGB Conc 34 g/dL N 31-36 Red Cell Distribution Width 12 % N 10.5-15 Platelet Count 196 10^3/uL N 150-450 Mean Platelet Volume 9 um3 N 7.4-10.4 Abs Neutrophils 4.1 10^3/uL N 1.5-7.7 Abs Lymphocytes 0.9 10^3/uL Low 1.0-4.8 Abs Monocytes 0.4 10^3/uL N 0-0.8 Abs Eosinophils 0.1 10^3/uL N 0-0.6 Abs Basophils 0.1 10^3/uL N 0-0.2 Abs Nucleated RBC 0 10^3/uL N Granulocyte % 74.0 % N 38-83 Lymphocyte % 15.7 % Low 25-47 Monocyte % 7.8 % N 1-9 Eosinophil % 1.0 % N 0-6 Basophil % 1.5 % N 0-2 Nucleated Red Blood Cells % 0 N Urine Culture And 04/12/2016 [facility] Urine SEE RESULT 38 , [address] [place] [address] [phone] CBC Auto Diff 03/23/2016 [facility] White Blood 5.0 10^3/uL N 3.5-[address] Count 0.8 [place] [address] [phone] Red Blood Count 4.23 10^6/uL N 4.0-5.4 Hemoglobin 13.8 g/dL N 12.0-16.0 Hematocrit 41 % N 35-47 Mean Corpuscular Volume 96 fL N 80-97 Mean Corpuscular Hemoglobin 33 pg High 27-31 Mean Corpuscular HGB Conc 34 g/dL N 31-36 Red Cell Distribution Width 12 % N 10.5-15 Platelet Count 178 10^3/uL N 150-450 Mean Platelet Volume 10 um3 N 7.4-10.4 Abs Neutrophils 3.9 10^3/uL N 1.5-7.7 Abs Lymphocytes 0.6 10^3/uL Low 1.0-4.8 Abs Monocytes 0.3 10^3/uL N 0-0.8 Abs Eosinophils 0 10^3/uL N 0-0.6 Abs Basophils 0.1 10^3/uL N 0-0.2 Abs Nucleated RBC 0.01 10^3/uL N Granulocyte % 78.2 % N 38-83 Lymphocyte % 12.9 % Low 25-47 Monocyte % 6.4 % N 1-9 Eosinophil % 0.5 % N 0-6 Basophil % 2.0 % N 0-2 Nucleated Red Blood Cells % 0.1 N Laboratory 03/23/2016 [facility] Carcinoembryonic 3.1 ng/mL N 0.1-5.0 41 test finding [address] Antigen Cea [place], [place] [id number] [phone] Comp Metabolic 03/23/2016 [facility] Sodium 139 N 133-[address] mmol/L [place], [place] [id number] [phone] Potassium 4.1 mmol/L N 3.5-5.0 Chloride 101 mmol/L N 101-111 Co2 Carbon Dioxide 26 mmol/L N 22-32 Anion Gap 12 mmol/L High 2-11 Glucose 79 mg/dL N 70-100 Blood Urea Nitrogen 11 mg/dL N 6-24 Creatinine 0.58 mg/dL N 0.51-0.95 BUN/Creatinine Ratio 19.0 N 8-20 Calcium 8.8 mg/dL N 8.6-10.3 Total Protein 6.0 g/dL Low 6.4-8.9 Albumin 3.9 g/dL N 3.2-5.2 Globulin 2.1 g/dL N 2-4 Albumin/Globulin Ratio 1.9 N 1-3 Total Bilirubin 0.50 mg/dL N 0.2-1.0 Alkaline Phosphatase 55 U/L N 34-104 Alt 11 U/L N 7-52 Ast 17 U/L N 13-39 Egfr Non- 101.3 N >60 Egfr 130.3 N >60 42 Laboratory test 03/23/2016 [facility] Surgical SEE RESULT 43, [address] [place] [address] [phone] Laboratory test 02/19/2016 [facility] TSH (Thyroid 1.51 ?IU/mL N 0.34- finding [address] Stim Horm) 5.60 [place] [address] [phone] CBC Auto Diff 02/19/2016 [facility] White Blood 4.7 10^3/uL N 3.5-[address] Count 0.8 [place] [address] [phone] Red Blood Count 4.21 10^6/uL N 4.0-5.4 Hemoglobin 13.6 g/dL N 12.0-16.0 Hematocrit 41 % N 35-47 Mean Corpuscular Volume 98 fL High 80-97 Mean Corpuscular Hemoglobin 32 pg High 27-31 Mean Corpuscular HGB Conc 33 g/dL N 31-36 Red Cell Distribution Width 13 % N 10.5-15 Platelet Count 211 10^3/uL N 150-450 Mean Platelet Volume 10 um3 N 7.4-10.4 Abs Neutrophils 3.2 10^3/uL N 1.5-7.7 Abs Lymphocytes 0.8 10^3/uL Low 1.0-4.8 Abs Monocytes 0.5 10^3/uL N 0-0.8 Abs Eosinophils 0.1 10^3/uL N 0-0.6 Abs Basophils 0.1 10^3/uL N 0-0.2 Abs Nucleated RBC 0.04 10^3/uL N Granulocyte % 68.4 % N 38-83 Lymphocyte % 17.9 % Low 25-47 Monocyte % 9.7 % High 1-9 Eosinophil % 1.9 % N 0-6 Basophil % 2.1 % High 0-2 Nucleated Red Blood Cells % 0.9 N Basic Metabolic Panel 02/19/2016 [facility] Sodium 137 mmol/L N 133-[address] [place] [address] [phone] Potassium 4.7 mmol/L N 3.5-5.0 Chloride 101 mmol/L N 101-111 Co2 Carbon Dioxide 31 mmol/L N 22-32 Anion Gap 5 mmol/L N 2-11 Glucose 91 mg/dL N 70-100 Blood Urea Nitrogen 16 mg/dL N 6-24 Creatinine 0.74 mg/dL N 0.51-0.95 BUN/Creatinine Ratio 21.6 High 8-20 Calcium 8.9 mg/dL N 8.6-10.3 Egfr Non- 76.5 N >60 Egfr 98.4 N >60 45 Laboratory test 02/19/2016 [facility] Lyme Disease Negative N Negative [address] [place] [address] [phone] Vitamin D Total 25(Oh) 33.9 ng/mL N 30-50 Ua Routine 01/06/2015 [employer] Ua Specific [place] 1.010 Ua PH 7.0 Ua Color yellow Ua Appera clear Ua WBC neg Ua Protein trace Ua Glucose neg Ua Ketones trace Ua Bilirubin small Ua Urobilinogen neg Ua Nitrite neg Ua Occult Blood neg Urine Culture And 01/06/2015 [facility] Urine Culture (SEE NOTE ) 47 Sensitivities [address] [place] [address] [phone] Urinalysis Profile 06/30/2014 [facility] Urine Color Yellow N [address] [place] [address] [phone] Urine Appearance Clear N Urine Specific [place] 1.012 N 1.010-1.030 Urine pH 7.0 N 5-9 Urine Urobilinogen Negative N Negative Urine Ketones Negative N Negative Urine Protein Negative N Negative Urine Leukocytes Negative N Negative Urine Blood Negative N Negative Urine Nitrite Negative N Negative Urine Bilirubin Negative N Negative Urine Glucose Negative N Negative Lyme Western 05/29/2014 [facility] Lyme Disease Negative N Negative Blot [address] [facility] [place] [address] [phone] Lyme Disease IgG Bands Present p41, kDa N Lyme Disease IgM Ab WB Negative N Negative Lyme Disease IgM Bands Present No bands detecte <SEE NOTE> kDa N 48 Lyme Disease Interpretation See Comment N 49 Comp Metabolic Panel 05/29/2014 [facility] Sodium 134 mmol/L N 133-145 [address] [place] [address] [phone] Potassium 4.3 mmol/L N 3.7-5.6 Chloride 99 mmol/L Low 101-111 Co2 Carbon Dioxide 32 mmol/L N 22-32 Anion Gap 3 mmol/L N 2-11 Glucose 69 mg/dL Low 70-100 Blood Urea Nitrogen 11 mg/dL N 6-24 Creatinine 0.64 mg/dL N 0.51-0.95 BUN/Creatinine Ratio 17.2 N 8-20 Calcium 8.9 mg/dL N 8.6-10.3 Total Protein 6.7 g/dL N 6.4-8.9 Albumin 4.1 g/dL N 3.2-5.2 Globulin 2.6 g/dL N 2-4 Albumin/Globulin Ratio 1.6 N 1-3 Total Bilirubin 0.40 mg/dL N 0.2-1.0 Alkaline Phosphatase 71 U/L N 34-104 Alt 11 U/L N 7-52 Ast 17 U/L N 13-39 Egfr Non- 91.0 N >60 Egfr 117.0 N >60 50 Vitamin D, 25 05/29/2014 [facility] 25-Hydroxy Vitamin <4.0 ng/ mL N Hydroxy [address] D2 [place] [address] [phone] 25-Hydroxy Vitamin D3 36 ng/mL N 25-Hydroxy Vitamin D Total 36 ng/mL N 51 Laboratory test 05/29/2014 [facility] Erythrocyte Sed 8 mm/Hr N 0-[address] [place] [address] [phone] C Reactive Protein 1.74 mg/L N < 5.00 52 Rheumatoid Factor <15 IU/mL N <15 53 Shanice (Anti-Nuclear AB) Screen Negative N Negative Laboratory test 07/02/2013 [facility] Methylmalonic 0.19 <= 0.40 [address] Acid nmol/[place] [address] [phone] Vitamin B12 And 07/02/2013 [facility] Vitamin B12 416 pg/mL 180-914 Folate Serum [address] [place] [address] [phone] Folate 15.7 ng/mL 2-16 CBC Auto 06/17/2013 [facility] White Blood 4.7 10^3/uL Low 4.8 -10.[address] [place] [address] [phone] Red Blood Count 4.23 10^6/uL 4.0-5.4 Hemoglobin 14.3 g/dL 12.0-16.0 Hematocrit 42 % 35-47 Mean Corpuscular Volume 98 fL High 80-97 Mean Corpuscular Hemoglobin 34 pg High 27-31 Mean Corpuscular HGB Conc 34 g/dL 31-36 Red Cell Distribution Width 12 % 10.5-15 Platelet Count 213 10^3/uL 150-450 Mean Platelet Volume 10 um3 7.4-10.4 55 Abs Neutrophils 3.1 10^3/uL 1.5-7.7 Abs Lymphocytes 1.0 10^3/uL 1.0-4.8 Abs Monocytes 0.5 10^3/uL 0-0.8 Abs Eosinophils 0.1 10^3/uL 0-0.6 Abs Basophils 0.1 10^3/uL 0-0.2 Abs Nucleated RBC 0 10^3/uL Granulocyte % 65.4 % 38-83 Lymphocyte % 20.7 % Low 25-47 Monocyte % 10.4 % High 1-9 Eosinophil % 2.1 % 0-6 Basophil % 1.4 % 0-2 Nucleated Red Blood Cells % 0 Comp Metabolic Panel 06/17/2013 [facility] Sodium 138 mmol/L 133-[address] [place] [address] [phone] Potassium 3.9 mmol/L 3.5-5.0 Chloride 101 mmol/L 101-111 Co2 Carbon Dioxide 33.0 mmol/L High 22-32 Anion Gap 4.0 mmol/L 2-11 Glucose 67 mg/dL Low 70-100 Blood Urea Nitrogen 9 mg/dL 6-24 Creatinine 0.60 mg/dL 0.50-1.40 BUN/Creatinine Ratio 15.0 8-20 Calcium 9.2 mg/dL 8.1-9.9 Total Protein 6.2 g/dL 6.2-8.1 Albumin 3.8 g/dL 3.2-5.2 Globulin 2.4 g/dL 2-4 Albumin/Globulin Ratio 1.6 1-3 Total Bilirubin 0.6 mg/dL 0.4-1.5 Alkaline Phosphatase 69 U/L 30-110 Alt 14 U/L 14-54 Ast 22 U/L 12-42 Egfr Non- 98.3 >60 Egfr 126.4 >60 56 Laboratory test 06/17/2013 [facility] Lyme Disease Negative Negative 57 finding 101 [facility] [place] [address] [phone] C Reactive Protein < 0.5 mg/dL Less than 0.5 Protein 06/17/2013 [facility] Total 7.2 g/dL 6.3 - Electrophoresis [address] [facility] Protein(Pep) 7.9 [place] [address] [phone] Albumin 3.8 g/dL 3.4-4.7 Alpha-1 Globulin 0.2 g/dL 0.1-0.3 Alpha-2 Globulin 1.0 g/dL 0.6-1.0 Beta Globulin 1.2 g/dL 0.7-1.2 Gamma Globulin 1.0 g/dL 0.6-1.6 Albumin/Globulin Ratio 1.12 Impression See Comment 58 Manual Differential 09/04/2012 [facility] Platelet Morphology Large [address] [place] [address] [phone] Neutrophil % 66.0 % 38-83 Band % 4.0 % 0-8 Lymphocytes % 18.0 % Low 25-47 Monocytes % 8.0 % 0-13 Eosinophils % 1.0 % 0-6 Basophil % 0 % 0-2 Reactive Lymph % 3.0 % 0-6 Metamyelocytes % 0 % 0-2 Myelocytes % 0 % 0-1 Promyelocytes % 0 % Blast % 0 % RBC Morphology Normal Normal Vitamin D, 25 09/04/2012 [facility] 25-Hydroxy Vitamin <4.0 ng/ mL Hydroxy [address] D2 [place] [address] [phone] 25-Hydroxy Vitamin D3 25 ng/mL 25-Hydroxy Vitamin D Total 25 ng/mL 59 Basic Metabolic Panel 09/04/2012 [facility] Sodium 133 mmol/L 133-[address] [place] [address] [phone] Potassium 3.9 mmol/L 3.5-5.0 Chloride 99 mmol/L Low 101-111 Co2 Carbon Dioxide 30.0 mmol/L 22-32 Anion Gap 4.0 mmol/L 2-11 Glucose 90 mg/dL 70-100 Blood Urea Nitrogen 11 mg/dL 6-24 Creatinine 0.70 mg/dL 0.50-1.40 BUN/Creatinine Ratio 15.7 8-20 Calcium 8.7 mg/dL 8.1-9.9 Egfr Non- 82.5 >60 Egfr 106.1 >60 60 Iron & Iron Binding 09/04/2012 [facility] Iron 67 UG/ML 28- [address] [place] [address] [phone] Unsaturated Iron Binding 328 g/dL Total Iron Binding Capacity 395 g/dL 250-450 Transferrin 281.9 % Iron Saturation 17 % 15-55 CBC Auto 09/04/2012 [facility] White Blood 4.1 10^3/uL Low 4.8 -10.[address] [place] [address] [phone] Red Blood Count 3.90 10^6/uL Low 4.0-5.4 Hemoglobin 12.3 g/dL 12.0-16.0 Hematocrit 37 % 35-47 Mean Corpuscular Volume 95 fL 80-97 Mean Corpuscular Hemoglobin 32 pg High 27-31 Mean Corpuscular HGB Conc 33 g/dL 31-36 Red Cell Distribution Width 13 % 10.5-15 Platelet Count 191 10^3/uL 150-450 Mean Platelet Volume 11 um3 High 7.4-10.4 Abs Neutrophils 2.6 10^3/uL 1.5-7.7 Abs Lymphocytes 0.9 10^3/uL Low 1.0-4.8 Abs Monocytes 0.3 10^3/uL 0-0.8 Abs Eosinophils 0.1 10^3/uL 0-0.6 Abs Basophils 0.1 10^3/uL 0-0.2 Abs Nucleated RBC 0.01 10^3/uL Lipid Panel 06/03/2011 [facility] Triglyceride 48 mg/dL 40- 200 61 [address] [place] [address] [phone] Cholesterol 194 mg/dL Less Than 200 62 High Density Lipoprotein 78 mg/dL High 40-60 63 Cholesterol/HDL Ratio 2.49 AVERAGE 1-4.44 Low Density Lipoprotein 106 mg/dL High Less Than 100 64 BMP Basic Metabolic 06/03/2011 [facility] Sodium 139 mmol/L 135-145 Panel [address] [place] [address] [phone] Potassium 4.8 mmol/L 3.5-5.0 Chloride 101 mmol/L 101-111 Co2 (Carbon Dioxide) 31.0 mmol/L 22-32 Anion Gap 7.0 mmol/L 2-11 65 Glucose 97 mg/dL 70-100 BUN 13 mg/dL 6-24 Creatinine 0.7 mg/dL 0.50-1.40 One Over Creatinine 1.42 BUN/Creatinine Ratio 18.6 8-20 Calcium 9.2 mg/dL 8.1-9.9 eGFR Non- 82.7 > 60 eGFR 106.4 > 60 66 Surgical 02/16/2011 [facility] Surgical 67 Pathology [address] [facility] Pathology <SEE NOTE> [place] [address] [phone] Vitamin D, 25 05/21/2010 [facility] 25-Hydroxy <4.0 ng/mL () Hydroxy 101 [facility] Vitamin D2 [place] [address] [phone] 25-Hydroxy Vitamin D3 40 ng/mL () 25-Hydroxy Vitamin D Total 40 ng/mL () 68 Basic Metabolic 05/21/2010 [facility] Sodium 134 mmol/L Low 135-145 Panel [address] [place] [address] [phone] Potassium 5.4 mmol/L High 3.5-5.0 Chloride 100 mmol/L Low 101-111 Co2 (Carbon Dioxide) 29.0 mmol/L 22-32 Anion Gap 5.0 mmol/L 2-11 69 Glucose 93 mg/dL 70-100 70 BUN 13 mg/dL 6-24 Creatinine 0.60 mg/dL 0.50-1.40 One Over Creatinine 1.60 BUN/Creatinine Ratio 21.7 High 8-20 Calcium 8.7 mg/dL 8.1-9.9 71 eGFR Non- 105.4 > 60 eGFR 127.5 > 60 72 Lipid Profile 04/22/2009 [facility] Triglyceride 43 mg/dL 40- 200 (Trig/Chol/HDL) [address] [place] [address] [phone] Cholesterol 199 mg/dL Less Than 200 73 High Density Lipoprotein 75 mg/dL High 40-60 74 Cholesterol/HDL Ratio 2.65 AVERAGE 1-4.44 Low Density Lipoprotein 115 mg/dL High Less Than 100 75 Basic Metabolic Panel 04/22/2009 [facility] Sodium 139 mmol/L 135-145 [address] [place] [address] [phone] Potassium 4.3 mmol/L 3.5-5.0 Chloride 105 mmol/L 101-111 Co2 (Carbon Dioxide) 31.0 mmol/L 22-32 Anion Gap 3.0 mmol/L 2-11 76 Glucose 84 mg/dL 70-100 77 BUN 11 mg/dL 6-24 Creatinine 0.70 mg/dL 0.50-1.40 One Over Creatinine 1.40 BUN/Creatinine Ratio 15.7 8-20 Calcium 9.1 mg/dL 8.1-9.9 78 eGFR Non- 88.4 > 60 eGFR 107.0 > 60 79 Vitamin D, 25 04/09/2008 [facility] 25-Hydroxy Vitamin <4.0 ng/ mL () Hydroxy [address] [address] [phone] 25-Hydroxy Vitamin D3 35 ng/mL () 25-Hydroxy Vitamin D Total 35 ng/mL () 80 Basic Metabolic 04/09/2008 [facility] Sodium 133 mmol/L Low 135-[address] [place] [address] [phone] Potassium 4.8 mmol/L 3.5-5.0 Chloride 103 mmol/L 101-111 Co2 (Carbon Dioxide) 30.0 mmol/L 22-32 Anion Gap 0 mmol/L Low 2-11 81 Glucose 84 mg/dL 70-105 BUN 13 mg/dL 6-24 Creatinine 0.8 mg/dL 0.5-1.4 One Over Creatinine 1.25 BUN/Creatinine Ratio 16.3 8-20 Calcium 8.6 mg/dL 8.1-9.9 82 Vitamin D, 25 10/10/2007 [facility] 25-Hydroxy Vitamin <4.0 ng/ mL () Hydroxy [address] D2 [place] [address] [phone] 25-Hydroxy Vitamin D3 28 ng/mL () 25-Hydroxy Vitamin D Total 28 ng/mL () 83 [employer] 10/10/2007 [facility] Calcium For 9.1 mg/dL 8.7-10.2 Total Calcium [address] [place] [address] [phone] PTH Intact 4.2 PMOL/L 1.3-9.3 84 Lipid Profile 10/10/2007 [facility] Cholesterol/HDL 2.64 1- 4.44 (Trig/Chol/HDL) [address] [place] [address] [phone] Cholesterol 201 mg/dL High Less Than 200 85 Triglyceride 58 mg/dL 40-200 High Density Lipoprotein 76 mg/dL High 40-60 86 Low Density Lipoprotein 113 mg/dL High Less Than 100 87 Basic Metabolic 10/10/2007 [facility] One Over Creatinine 1.[address] [place] [address] [phone] Anion Gap 4.0 mmol/L 2-11 88 BUN 12 mg/dL 6-24 Calcium 9.2 mg/dL 8.7-10.2 Chloride 99 mmol/L Low 101-111 Co2 (Carbon Dioxide) 33.0 mmol/L High 22-32 Glucose 91 mg/dL 70-105 Potassium 4.2 mmol/L 3.5-5.0 Sodium 136 mmol/L 135-145 BUN/Creatinine Ratio 17.1 8-20 Creatinine 0.7 mg/dL 0.5-1.4 1 FASTING 10 HOUR 2 Desirable: <150 Borderline High: 150-199 High: 200-499 Very High: >500 3 Desirable: <200 Borderline High: 200-239 High: >239 4 Low: <40 Desirable: 40-60 High: >60 5 Desirable: <100 Near Optimal: 100-129 Borderline High: 130-159 High: 160-189 Very High: >189 6 FASTING 10 HOUR 7 Because ethnic data is not always readily available, this report includes an eGFR for both -Americans and non- Americans. The National Kidney Disease Education Program (NKDEP) does not endorse the use of the MDRD equation for patients that are not between the ages of 18 and 70, are , have extremes of body size, muscle mass, or nutritional status, or are non- or non-. According to the National Kidney Foundation, irrespective of diagnosis, the stage of the disease is based on the level of kidney function: Stage Description GFR(mL/min/1.73 m(2)) 1 Kidney damage with normal or decreased GFR 90 2 Kidney damage with mild decrease in GFR 60-89 3 Moderate decrease in GFR 30-59 4 Severe decrease in GFR 15-29 5 Kidney failure <15 (or dialysis) 8 Strategic Planning Specialist: [id number] Because ethnic data is not always readily available, this report includes an eGFR for both -Americans and non- Americans. The National Kidney Disease Education Program (NKDEP) does not endorse the use of the MDRD equation for patients that are not between the ages of 18 and 70, are , have extremes of body size, muscle mass, or nutritional status, or are non- or non-. According to the National Kidney Foundation, irrespective of diagnosis, the stage of the disease is based on the level of kidney function: Stage Description GFR(mL/min/1.73 m(2)) 1 Kidney damage with normal or decreased GFR 90 2 Kidney damage with mild decrease in GFR 60-89 3 Moderate decrease in GFR 30-59 4 Severe decrease in GFR 15-29 5 Kidney failure <15 (or dialysis) 10 [id number] SEE RESULT BELOW Name: KIANNA ASKEW : [address]: Elieser Ballesteros MD Acct: [id number] Unit: [id number] AGE: 78 Location: [facility] Re06/13/18 SEX: F Status: DEP REF SPEC: [id number] MARISEL: 06/13/18-1101 [facility] DR: Elieser Ballesteros MD REQ: [id number] RECD: 06/13/18 STATUS: YA CALL DR: Colt Garcia MD _ ORDERED: LEVEL 4/4 COMMENTS: [id number] FINAL DIAGNOSIS 1. Colon, transverse, biopsy: -- Hyperplastic polyp. 2. Colon, transverse, biopsy: -- Tubular adenoma. -- No high grade dysplasia or malignancy. 3. Colon, proximal transverse polyp margin, biopsy: -- Benign colonic mucosa with no evidence of adenomatous change. 4. Colon, anastomosis, biopsy: -- Benign colonic mucosa with no significant pathologic abnormalities. CLINICAL HISTORY Screening/Surveillance for malignancy in asymptomatic patient; follow up colorectal carcinoma; down 7-8 pounds eating smaller meals; stomach ache; reflux ? last year better for a while, omeprazole for 2 weeks ? dry mouth POST-OPERATIVE DIAGNOSIS Colonoscopy: to cecum ? 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 Director [facility] # [id number] RUN DATE: 06/14/18 [facility] LAB LIVE PAGE 2 Patient: KIANNA ASKEW Jackson [id number] (Continued) GROSS DESCRIPTION (Continued) GROSS DESCRIPTION 1. The specimen is received in formalin labeled, Transverse Colon Polyp, and consists of a 0.6 x 0.3 x 0.1 cm alfredo-yellow irregular to polypoid soft tissue fragment admixed with organic debris which is submitted entirely in one cassette. 2. The specimen is received in formalin labeled, Transverse Colon Polyp, and consists of a 1.2 x 0.9 by up to 0.3 cm aggregate of alfredo-red irregular to polypoid soft tissue fragments admixed with organic debris which is submitted entirely in one cassette. 3. The specimen is received in formalin labeled, Proximal Transverse Colon Polyp Margin, and consists of a 0.6 x 0.4 x 0.1 cm aggregate of alfredo-pink to red irregular to polypoid soft tissue fragments which is submitted entirely in one cassette. 4. The specimen is received in formalin labeled, Biopsy Anastomosis, and consists of two alfredo-pink irregular to polypoid soft tissue fragments measuring 0.3 x 0.2 x 0.2 cm and 0.6 x 0.2 x 0.1 cm which are submitted entirely in one cassette. Signed by and Reported on: Kianna Tadeo MD 06/14/18 1533 END OF REPORT DEPARTMENT OF PATHOLOGY, [address] [place] [address] Junior Mckenzie M.D. Director [facility] # [id number] 12 Nonsmokers: < 2.9 ng/mL Some smokers may have elevated CEA, usually <5.0 ng/mL. Serum markers are not specific for malignancy, and values may vary by method. The testing method is an immunoenzymatic assay biology laboratory assistant by [employer] performed on Azael Pattie DXI 600. Do not interpret serum CEA levels as absolute evidence of the presence or the absence of malignant disease. Use serum CEA in conjunction with information from the clinical evaluation of the patient and other diagnostic procedures. 13 [id number] 14 SEE RESULT BELOW Name: KIANNA ASKEW : [address]: Anastacia Heredia NP Acct: [id number] Unit: [id number] AGE: 77 Location: [facility] Re11/03/17 SEX: F Status: REG REF SPEC: [id number] MARISEL: 11/03/17-1503 [facility] DR: Anastacia Heredia NP REQ: [id number] RECD: 11/03/17 STATUS: COMP _ SOURCE: URINE SPDESC: ORDERED: Urine Culture COMMENTS: [id number] Urine Source: Random Procedure Result Reported Site Urine Culture Final 11/05/17- 0955 ML No Growth (<1,000 CFU/mL) * ML - MAIN LAB ([facility]) . END OF REPORT * ML=Testing performed at Main Lab DEPARTMENT OF PATHOLOGY, [address] [place] [address] Junior Mckenzie M.D. Director [facility] # [id number] 15 Nonsmokers: < 2.9 ng/mL Some smokers may have elevated CEA, usually <5.0 ng/mL. Serum markers are not specific for malignancy, and values may vary by method. The testing method is an immunoenzymatic assay biology laboratory assistant by [employer] performed on Azael Nanochip DXI 600. Do not interpret serum CEA levels as absolute evidence of the presence or the absence of malignant disease. Use serum CEA in conjunction with information from the clinical evaluation of the patient and other diagnostic procedures. 16 SEE RESULT BELOW Name: KIANNA ASKEW : [address]: Elieser Ballesteros MD Acct: [id number] Unit: [id number] AGE: 77 Location: ENDO Re08/22/17 SEX: F Status: DEP REF SPEC: [id number] MARISEL: 08/22/17-471 [facility] DR: Elieser Ballesteros MD REQ: [id number] RECD: 08/22/17 STATUS: YA CALL DR: Colt Garcia MD _ ORDERED: LEVEL 4/2 FINAL DIAGNOSIS 1. Small bowel, duodenum, biopsy: -- Small bowel mucosa with normal villous architecture and no significant pathologic abnormality. 2. Gastroesophageal junction, biopsy: -- Gastroesophageal junctional mucosa with mild reflux esophagitis. -- No goblet cell/intestinal metaplasia identified. -- No dysplasia identified. CLINICAL HISTORY Appetite better after colon surgery. No nausea and vomiting; every other day. Blurry vision, weight loss POST-OPERATIVE DIAGNOSIS Larynx ? symmetric; esophagus ? esophagogastric 36-37 small hiatal hernia, erosion at 3 o'clock, biopsied x3 at 37 cm; stomach ? CLOtest biopsy; duodenum ? normal x35 cm. Conclusions/Plan: Hiatal hernia; gastroesophageal reflux disease, start omeprazole; weight loss ? GROSS DESCRIPTION 1. The specimen is received in formalin labeled, Third Portion Duodenum Biopsy, and consists of a 0.6 x 0.4 x 0.2 cm aggregate of alfredo-pink irregular soft tissue fragments which is submitted entirely in one cassette. 2. The specimen is received in formalin labeled, EG Junction Biopsy, and consists of a 0.7 x 0.3 x 0.1 cm aggregate of alfredo-pink irregular soft tissue fragments which is submitted entirely in one cassette. CONTINUED ON NEXT PAGE * ML=Testing performed at Main Lab DEPARTMENT OF PATHOLOGY, [address] [place] [address] Junior Mckenzie M.D. Director [facility] # [id number] RUN DATE: 08/23/17 [facility] LAB LIVE PAGE 2 Patient: KIANNA ASKEW Jackson [id number] (Continued) GROSS DESCRIPTION (Continued) Signed (signature on file) Junior Mckenzie MD 1333 END OF REPORT * ML=Testing performed at Main Lab DEPARTMENT OF PATHOLOGY, [address] [place] [address] Junior Mckenzie M.D. Director [facility] # [id number] 17 SEE RESULT BELOW Name: KIANNA ASKEW : [address]: Elieser Ballesteros MD Acct: [id number] Unit: [id number] AGE: 77 Location: ENDO Re08/22/17 SEX: F Status: REG REF SPEC: [id number] MARISEL: 08/22/17 [facility] DR: Elieser Ballesteros MD REQ: [id number] RECD: 08/22/17 STATUS: SUZETTE CALL DR: Colt Garcia MD _ SOURCE: NO [facility] ORDERED: Clotest Procedure Result Reported Site Clotest Final 08/23/17900 ML Clotest Negative * ML - MAIN LAB ([facility]) . END OF REPORT * ML=Testing performed at Main Lab DEPARTMENT OF PATHOLOGY, [address] [place] [address] Junior Mckenzie M.D. Director [facility] # [id number] 18 A negative result does not exclude the diagnosis of autoimmune myasthenia gravis. 19 ADDITIONAL INFORMATION This test was developed and its performance characteristics determined by [facility] in a manner consistent with CLIA requirements. This test has not been cleared or approved by the U.S. Food and Drug Administration. 20 REFERENCE VALUE 0-20% (reported as _% loss of AChR) ADDITIONAL INFORMATION This test was developed and its performance characteristics determined by [facility] in a manner consistent with CLIA requirements. This test has not been cleared or approved by the U.S. Food and Drug Administration. 21 ADDITIONAL INFORMATION This test was developed and its performance characteristics determined by [facility] in a manner consistent with CLIA requirements. This test has not been cleared or approved by the U.S. Food and Drug Administration. Test Performed by: [facility] - [address] [address] 22 Copy Result to: AFSHAN ARNOLD ([id number]) 23 Copy Result to: AFSHAN ARNOLD ([id number]) 24 Test Performed by: [facility] - [facility] [address] [place] [address] 25 Because ethnic data is not always readily available, this report includes an eGFR for both -Americans and non- Americans. The National Kidney Disease Education Program (NKDEP) does not endorse the use of the MDRD equation for patients that are not between the ages of 18 and 70, are , have extremes of body size, muscle mass, or nutritional status, or are non- or non-. According to the National Kidney Foundation, irrespective of diagnosis, the stage of the disease is based on the level of kidney function: Stage Description GFR(mL/min/1.73 m(2)) 1 Kidney damage with normal or decreased GFR 90 2 Kidney damage with mild decrease in GFR 60-89 3 Moderate decrease in GFR 30-59 4 Severe decrease in GFR 15-29 5 Kidney failure <15 (or dialysis) 26 Strategic Planning Specialist: [id number] 27 Normal Range 180 to 914 Indeterminate Range 145 to 180 Deficient Range <145 28 Because ethnic data is not always readily available, this report includes an eGFR for both -Americans and non- Americans. The National Kidney Disease Education Program (NKDEP) does not endorse the use of the MDRD equation for patients that are not between the ages of 18 and 70, are , have extremes of body size, muscle mass, or nutritional status, or are non- or non-. According to the National Kidney Foundation, irrespective of diagnosis, the stage of the disease is based on the level of kidney function: Stage Description GFR(mL/min/1.73 m(2)) 1 Kidney damage with normal or decreased GFR 90 2 Kidney damage with mild decrease in GFR 60-89 3 Moderate decrease in GFR 30-59 4 Severe decrease in GFR 15-29 5 Kidney failure <15 (or dialysis) 29 Nonsmokers: < 2.9 ng/mL Some smokers may have elevated CEA, usually <5.0 ng/mL. Serum markers are not specific for malignancy, and values may vary by method. The testing method is an immunoenzymatic assay biology laboratory assistant by [employer] performed on Azael Nanochip DXI 600. Do not interpret serum CEA levels as absolute evidence of the presence or the absence of malignant disease. Use serum CEA in conjunction with information from the clinical evaluation of the patient and other diagnostic procedures. 30 SEE RESULT BELOW Name: KIANNA ASKEW : [address]: Elieser Ballesteros MD Acct: [id number] Unit: [id number] AGE: 77 Location: ENDO Re02/14/17 SEX: F Status: REG REF SPEC: [id number] MARISEL: 02/14/17-7 [facility] DR: Elieser Ballesteros MD REQ: [id number] RECD: 02/14/17 STATUS: YA CALL DR: Colt Garcia MD _ ORDERED: LEVEL 4/6 FINAL DIAGNOSIS 1. Colon, proximal descending, biopsy: -- Hyperplastic polyp. 2. Colon, distal descending, biopsy: -- Hyperplastic polyp. 3. Colon, proximal sigmoid, biopsy: -- Tubular adenoma. -- No high grade dysplasia or malignancy. 4. Colon, mid sigmoid, biopsy: -- Benign colonic mucosa with surface hyperplastic change. 5. Colon, distal sigmoid, biopsy: -- Tubular adenoma. -- No high grade dysplasia or malignancy. 6. Colon, rectum at 4 cm, biopsy: -- Tubular adenoma. -- No high grade dysplasia or malignancy. CLINICAL HISTORY Fell October 2016 - no fracture POST-OPERATIVE DIAGNOSIS Colonoscopy to cecum - deformed splenic 8 o'clock tier to right colon. Conclusions/Plan: Status post-surgery KACIE; 6 polyps CONTINUED ON NEXT PAGE * ML=Testing performed at Main Lab DEPARTMENT OF PATHOLOGY, [address] [place] [address] Junior Mckenzie M.D. Director [facility] # [id number] RUN DATE: 02/15/17 [facility] LAB LIVE PAGE 2 Patient: KIANNA ASKEW [id number] (Continued) GROSS DESCRIPTION (Continued) GROSS DESCRIPTION 1. The specimen is received in formalin labeled, Biopsy Proximal Descending Colon Thickened Fold, and consists of a 0.6 x 0.2 x 0.2 cm speckled alfredo-pink irregular to polypoid soft tissue fragments which is entirely submitted in one cassette. 2. The specimen is received in formalin labeled, Biopsy Distal Descending Colon Thickened Fold, and consists of a 0.5 x 0.5 x 0.2 cm speckled alfredo-white irregular to polypoid soft tissue fragments which is entirely submitted in one cassette. 3. The specimen is received in formalin labeled, Biopsy Proximal Sigmoid Polyp, and consists of two speckled alfredo-pink irregular to polypoid soft tissue fragments measuring 0.4 x 0.3 x 0.2 cm and 0.7 x 0.3 x 0.1 cm which are entirely submitted in one cassette. 4. The specimen is received in formalin labeled, Biopsy Mid Sigmoid Colon Polyp, and consists of a 0.4 x 0.3 x 0.2 cm speckled alfredo-white irregular to polypoid soft tissue fragment which is entirely submitted in one cassette. 5. The specimen is received in formalin labeled, Biopsy Distal Sigmoid Colon Polyp, and consists of three speckled alfredo-brown irregular to polypoid soft tissue fragments ranging from 0.2 x 0.2 x 0.1 cm to 0.6 x 0.4 x 0.2 cm which are entirely submitted in one cassette. 6. The specimen is received in formalin labeled, Biopsy Rectal Polyp at 4 cm, and consists of three speckled alfredo-pink irregular to polypoid soft tissue fragments ranging from 0.3 x 0.2 x 0.2 cm to 0.5 x 0.3 x 0.2 cm which are entirely submitted in one cassette. Signed (signature on file) Kianna Tadeo MD 1055 END OF REPORT * ML=Testing performed at Main Lab DEPARTMENT OF PATHOLOGY, [address] [place] [address] Junior Mckenzie M.D. Director [facility] # [id number] 31 Nonsmokers: < 2.9 ng/mL Some smokers may have elevated CEA, usually <5.0 ng/mL. Serum markers are not specific for malignancy, and values may vary by method. The testing method is an immunoenzymatic assay biology laboratory assistant by Azael [employer] performed on Azael Hardwick DXI 600. Do not interpret serum CEA levels as absolute evidence of the presence or the absence of malignant disease. Use serum CEA in conjunction with information from the clinical evaluation of the patient and other diagnostic procedures. 32 Because ethnic data is not always readily available, this report includes an eGFR for both -Americans and non- Americans. The National Kidney Disease Education Program (NKDEP) does not endorse the use of the MDRD equation for patients that are not between the ages of 18 and 70, are , have extremes of body size, muscle mass, or nutritional status, or are non- or non-. According to the National Kidney Foundation, irrespective of diagnosis, the stage of the disease is based on the level of kidney function: Stage Description GFR(mL/min/1.73 m(2)) 1 Kidney damage with normal or decreased GFR 90 2 Kidney damage with mild decrease in GFR 60-89 3 Moderate decrease in GFR 30-59 4 Severe decrease in GFR 15-29 5 Kidney failure <15 (or dialysis) 33 Normal Range 180 to 914 Indeterminate Range 145 to 180 Deficient Range <145 34 SEE RESULT BELOW Name: KIANNA ASKEW : [address]: Roosevelt Reyes NP Acct: [id number] Unit: [id number] AGE: 76 Location: [facility] Re05/02/16 SEX: F Status: REG REF SPEC: [id number] MARISEL: 05/02/16-1507 [facility] DR: Roosevelt Reyes NP REQ: [id number] RECD: 05/02/16 STATUS: COMP _ SOURCE: VAGINAL SPDESC: ORDERED: Sabi,Yeast DNA Procedure Result Reported Site Gardnerella/Yeast: Vaginal DNA Final 05/03/16- 1015 ML Organism 1 Negative Gardnerella Organism 2 Negative Tere The presence of G. vaginalis, although suggestive, is not diagnostic for bacterial vaginosis. Results should be interpreted in conjuction with other clinical and laboratory data available. Women with vaginal discharge should be evaluated for risk factors of cervicitis and pelvic inflammatory disease, toxic shock syndrome (S.aureus), and if present, evaluated for organisms not included in this assay such as N. gonorrhoeae, C. trachomatis, Mobiluncus, Mycoplasma and/or Prevotella. Mixed infections may occur. The performance of this test on patient specimens collected during or immediately after antimicrobial therapy is unknown. The presence or absence of Tere species, or G. vaginalis cannot be used as a test for therapeutic success or failure. * ML - MAIN LAB ([facility]) . END OF REPORT * ML=Testing performed at Main Lab DEPARTMENT OF PATHOLOGY, [address] [place] [address] Junior Mckenzie M.D. Director [facility] # [id number] 35 SEE RESULT BELOW Name: KIANNA ASKEW : [address]: Roosevelt Reyes NP Acct: [id number] Unit: [id number] AGE: 76 Location: [facility] Re05/02/16 SEX: F Status: REG REF SPEC: [id number] MARISEL: 05/02/16-1508 [facility] DR: Roosevelt Reyes COMMUNITY HEALTH PROGRAM COORDINATOR REQ: [id number] RECD: 05/02/16 STATUS: SOUT _ ORDERED: IMAGE ANALYSIS, HPV/Thin Prep, HPV 16/18 GENE COMMENTS: [id number] FINAL DIAGNOSIS Negative for Intraepithelial lesion or Malignancy A. Ectocervical/Endocervical Specimen Adequacy: Satisfactory of evaluation Transformation zone component cannot be definitely identified due to presence of atrophy or other hormonal changes Patient Information: HPV: High risk HPV RNA testing regardless of pap results. HPV 16/18 Genotype Reflex Actual Specimen Date: 05/02/16 LMP If Unknown: unknown Spec Date if unknown: 06/2015 ? ?: N Post Menopausal?: Y Hysterectomy?: N Previous Abnormal Pap Smears?:N Date Time Test Result Flag (u) Normal Range 05/02/16 1508 HPV RNA RFLX GE Negative Negative The high-risk HPV types detected by the assay include: 16, 18, 31, 33, 35, 39, 45, 51, 52, 56, 58, 59, 66, and 68. Signed (signature on file) Theo PAMELLA Breen([facility]) 05/03 1511 This Pap test was evaluated with the assistance of the Deep [employer] Test Imaging System. Due to cytologic findings at the giver microscope, comprehensive manual rescreening by a Cadmium Liquor Maker may be required. The Pap Smear is a screening test designed to aid in the detection of premalignant and malignant conditions of the uterine cervix. It is not a diagnostic procedure and should not be used as the sole means of detecting cervical cancer. Both false- positive and false- negative reports do occur. Depending on your risk status, a Pap smear should be obtained and evaluated every 1-3 years. END OF REPORT * ML=Testing performed at Main Lab DEPARTMENT OF PATHOLOGY, [address] [place] [address] RUN DATE: 05/03/16 [facility] LAB LIVE PAGE 1 Patient: KIANNA ASKEW [id number] (Continued) Junior Mckenzie M.D. Director [facility] # [id number] HPV Source?: Thin Prep Trichomonas Source: Thin Prep 37 The high-risk HPV types detected by the assay include: 16, 18, 31, 33, 35, 39, 45, 51, 52, 56, 58, 59, 66, and 68. 38 [id number] 39 SEE RESULT BELOW Name: KIANNA ASKEW : [address]: Jocy Valle MD Acct: [id number] Unit: [id number] AGE: 76 Location: [facility] Re04/12/16 SEX: F Status: DEP ER SPEC: [id number] MARISEL: 04/12/16-1619 [facility] DR: Jocy Valle MD REQ: [id number] RECD: 04/12/16 STATUS: SUZETTE CALL DR: Colt Ballesteros MD _ SOURCE: URINE SPDESC: ORDERED: Urine Culture COMMENTS: [id number] Procedure Result Reported Site Urine Culture Final 04/13/16- 1612 ML No Growth (<1,000 CFU/mL) * ML - [facility] ([facility]) . END OF REPORT * ML=Testing performed at Main Lab DEPARTMENT OF PATHOLOGY, [address] [place] [address] Junior Mckenzie M.D. Director [facility] # [id number] 40 [id number] 41 Nonsmokers: < 2.9 ng/mL Some smokers may have elevated CEA, usually <5.0 ng/mL. Serum markers are not specific for malignancy, and values may vary by method. The testing method is an immunoenzymatic assay biology laboratory assistant by [employer] performed on [employer] DXI 600. Do not interpret serum CEA levels as absolute evidence of the presence or the absence of malignant disease. Use serum CEA in conjunction with information from the clinical evaluation of the patient and other diagnostic procedures. 42 Because ethnic data is not always readily available, this report includes an eGFR for both -Americans and non- Americans. The National Kidney Disease Education Program (NKDEP) does not endorse the use of the MDRD equation for patients that are not between the ages of 18 and 70, are , have extremes of body size, muscle mass, or nutritional status, or are non- or non-. According to the National Kidney Foundation, irrespective of diagnosis, the stage of the disease is based on the level of kidney function: Stage Description GFR(mL/min/1.73 m(2)) 1 Kidney damage with normal or decreased GFR 90 2 Kidney damage with mild decrease in GFR 60-89 3 Moderate decrease in GFR 30-59 4 Severe decrease in GFR 15-29 5 Kidney failure <15 (or dialysis) 43 [id number] 44 SEE RESULT BELOW Name: KIANNA ASKEW : [address]: Elieser Ballesteros MD Acct: [id number] Unit: [id number] AGE: 76 Location: [facility] Re03/23/16 SEX: F Status: REG REF SPEC: [id number] MARISEL: 03/23/16-[address]: Elieser Ballesteros MD REQ: [id number] RECD: 03/23/16-1609 STATUS: YA CALL DR: Colt Beaulieu MD _ ORDERED: LEVEL IV/4, CD56 Immunostai, SYNA-ADD, CGS-ADD COMMENTS: [id number] Immunohistochemical staining, with appropriately reacting controls, was performed on sections cut from specimen for with the following results: CD56 negative Chromogranin negative Synaptophysin negative There is no evidence of neuroendocrine differentiation. Dr. Mckenzie reviewed this case in intradepartmental consultation and agrees with the diagnosis. Addendum Signed (signature on file) Kianna Tadeo MD 02/07 1212 FINAL DIAGNOSIS 1. Colon, hepatic flexure, biopsy: -- Tubular adenoma. -- No high grade dysplasia or malignancy. 2. Colon, ileocecal valve, biopsy: -- Hyperplastic polyp. 3. Colon, distal transverse, biopsy: -- Hyperplastic polyp. 4. Colon, proximal descending, biopsy: -- Invasive adenocarcinoma, poorly differentiated; see comment. COMMENT: Assessment of depth of invasion and other histopathologic prognostic indicators is best performed on the excision specimen. Immunohistochemical staining is pending to assess for possible neuroendocrine differentiation and the findings will be reported in an addendum. CONTINUED ON NEXT PAGE * ML=Testing performed at Main Lab DEPARTMENT OF PATHOLOGY, [address] [place] [address] Junior Mckenzie M.D. Director [facility] # [id number] RUN DATE: 03/29/16 [facility] LAB LIVE PAGE 2 Patient: KIANNA ASKEW [id number] (Continued) CLINICAL HISTORY (Continued) CLINICAL HISTORY Diet - non-select appetite. Weight good. Dr. otto butler of 2014 PE, Chronic IBP, ER 0, PSH - 0 GI, tubal. POST-OPERATIVE DIAGNOSIS Colonoscopy to cecum, floppy, excellent prep. Conclusions/Plan: 1. proximal descending mass, 2. other polyps. GROSS DESCRIPTION 1. The specimen is received in formalin labeled, Biopsy Hepatic Flexure Polyp, and consists of two alfredo-white irregular to polypoid soft tissue fragments averaging 0.5 x 0.3 x 0.2 cm, which are entirely submitted in one cassette. 2. The specimen is received in formalin labeled, Ileocecal Polyp, and consists of a 1.3 x 0.4 x 0.3 cm speckled alfredo-brown irregular to polypoid soft tissue fragment, which is entirely submitted in one cassette. 3. The specimen is received in formalin labeled, Distal Transverse Colon Polyp, and consists of a 1.1 x 0.6 x 0.3 cm alfredo-white irregular to polypoid soft tissue fragment, which is entirely submitted in one cassette. 4. The specimen is received in formalin labeled, Biopsy Proximal Descending Colon Lesion, and consists of a 1.0 x 0.6 x 0.2 cm aggregate of alfredo-brown irregular to polypoid soft tissue fragments admixed with scant red-brown blood clot, which is entirely submitted in one cassette. Signed (signature on file) Kianna Tadeo MD 10/10 1337 END OF REPORT * ML=Testing performed at Main Lab DEPARTMENT OF PATHOLOGY, [address] [place] [address] Junior Mckenzie M.D. Director [facility] # [id number] 45 Because ethnic data is not always readily available, this report includes an eGFR for both -Americans and non- Americans. The National Kidney Disease Education Program (NKDEP) does not endorse the use of the MDRD equation for patients that are not between the ages of 18 and 70, are , have extremes of body size, muscle mass, or nutritional status, or are non- or non-. According to the National Kidney Foundation, irrespective of diagnosis, the stage of the disease is based on the level of kidney function: Stage Description GFR(mL/min/1.73 m(2)) 1 Kidney damage with normal or decreased GFR 90 2 Kidney damage with mild decrease in GFR 60-89 3 Moderate decrease in GFR 30-59 4 Severe decrease in GFR 15-29 5 Kidney failure <15 (or dialysis) 46 Serologic response to B. burgdorferi infection is not detected, but cannot rule out early infection during which low or undetectable antibody levels to B. burgdorferi may be present. If clinically indicated, a new serum specimen should be submitted in 7-14 days. Test Performed by: [address] [address] [address] Patcher: Jim Monahan II, M.D., Ph.D. 47 RUN DATE: 01/08/15 [facility] LAB LIVE PAGE 1 RUN TIME: [address] [place] [id number] Specimen Inquiry Name: KIANNA ASKEW : [address]: Roosevelt Reyes COMMUNITY HEALTH PROGRAM COORDINATOR Acct: [id number] Unit: [id number] AGE: 74 Location: [facility] Re01/06/15 SEX: F Status: REG REF SPEC: [id number] MARISEL: 01/06/15-[address]: Roosevelt Reyes NP REQ: [id number] RECD: 01/06/15-1304 STATUS: COMP _ SOURCE: URINE SPDESC: ORDERED: Urine Culture QUERIES: Provider Requisition # [id number] Procedure Result Verified Site Urine Culture Final 01/08/15- 1032 ML Organism 1 NORMAL THOMPSON [place] Count 10-25,000 (Moderate) CFU/ML * ML - MAIN LAB ([facility]) . END OF REPORT * ML=Testing performed at Main Lab DEPARTMENT OF PATHOLOGY, [address] [place] [address] Junior Mckenzie M.D. Director [facility] # [id number] 48 No bands detected 49 Specific serologic response to B. burgdorferi infection is not detected, but cannot rule out early infection during which low or undetectable antibody levels to B. burgdorferi may be present. If clinically indicated, a new serum specimen should be submitted in 7-14 days. CDC criteria require >=5 bands for IgG or >=2 bands for IgM for the Immunoblot to be considered positive. Bands (e.g.,p41) may be detected in patients without Lyme disease, and patterns not meeting the CDC criteria should be interpreted with caution. Immunoblot should be ordered only on specimens that are positive or equivocal by a FDA-licensed Lyme disease antibody screening test (e.g., EIA). Test Performed by: [place] [address] Road Patcher: Maximo Palafox III, M.D. 50 Because ethnic data is not always readily available, this report includes an eGFR for both -Americans and non- Americans. The National Kidney Disease Education Program (NKDEP) does not endorse the use of the MDRD equation for patients that are not between the ages of 18 and 70, are , have extremes of body size, muscle mass, or nutritional status, or are non- or non-. According to the National Kidney Foundation, irrespective of diagnosis, the stage of the disease is based on the level of kidney function: Stage Description GFR(mL/min/1.73 m(2)) 1 Kidney damage with normal or decreased GFR 90 2 Kidney damage with mild decrease in GFR 60-89 3 Moderate decrease in GFR 30-59 4 Severe decrease in GFR 15-29 5 Kidney failure <15 (or dialysis) 51 -- REFERENCE VALUE -- 25-HYDROXY D TOTAL (D2+D3) Optimum levels in the healthy population are 20-50, patients with bone disease may benefit from higher levels within this range. Test Performed by: [place] [address] Road Patcher: Maximo Palafox III, M.D. 52 Acute inflammation: >10.00 53 Test Performed by: [place] [address] Road Patcher: Maximo Palafox III, M.D. 54 Test Performed by: [place] [address] Road Patcher: Maximo Palafox III, M.D. 55 Consistent with previous results. 56 Because ethnic data is not always readily available, this report includes an eGFR for both -Americans and non- Americans. The National Kidney Disease Education Program (NKDEP) does not endorse the use of the MDRD equation for patients that are not between the ages of 18 and 70, are , have extremes of body size, muscle mass, or nutritional status, or are non- or non-. According to the National Kidney Foundation, irrespective of diagnosis, the stage of the disease is based on the level of kidney function: Stage Description GFR(mL/min/1.73 m(2)) 1 Kidney damage with normal or decreased GFR 90 2 Kidney damage with mild decrease in GFR 60-89 3 Moderate decrease in GFR 30-59 4 Severe decrease in GFR 15-29 5 Kidney failure <15 (or dialysis) 57 Serologic response to B. burgdorferi infection is not detected, but cannot rule out early infection during which low or undetectable antibody levels to B. burgdorferi may be present. If clinically indicated, a new serum specimen should be submitted in 7-14 days. Test Performed by: [place] [address] Road Patcher: Maximo Palafox III, M.D. 58 No apparent monoclonal protein on serum electrophoresis. Test Performed by: [place] [address] Road Patcher: Maximo Palafox III, M.D. 59 -- REFERENCE VALUE -- 25-HYDROXY D TOTAL (D2+D3) Optimum levels in the normal population are 25-80 Test Performed by: [facility] [address] [address] Road Patcher: Maximo Palafox III, M.D. 60 Because ethnic data is not always readily available, this report includes an eGFR for both -Americans and non- Americans. The National Kidney Disease Education Program (NKDEP) does not endorse the use of the MDRD equation for patients that are not between the ages of 18 and 70, are , have extremes of body size, muscle mass, or nutritional status, or are non- or non-. According to the National Kidney Foundation, irrespective of diagnosis, the stage of the disease is based on the level of kidney function: Stage Description GFR(mL/min/1.73 m(2)) 1 Kidney damage with normal or decreased GFR 90 2 Kidney damage with mild decrease in GFR 60-89 3 Moderate decrease in GFR 30-59 4 Severe decrease in GFR 15-29 5 Kidney failure <15 (or dialysis) 61 FASTING 62 CHOLESTEROL INTERPRETATION: Desirable: Less than 200 MG/DL Borderline-High Risk: 200-239 MG/DL High-Risk: 240 MG/DL and over 63 HDL INTERPRETATION: Undesirable: High Risk: Less than 40 MG/DL Desirable: Low Risk: Greater than 60 MG/DL 64 LDL INTERPRETATION: Low Risk Optimal Level: LDL Less than 100 MG/DL Near or Above Optimal: LDL 100-129 MG/DL Borderline High Risk: LDL 130-159 MG/DL High Risk: LDL 160-189 MG/DL Very High Risk: LDL Greater than 189 MG/DL 65 Anion gap measurement may be of limited value in the presence of any alkalosis, especially in a combined acid base disorder. . 66 Because ethnic data is not always readily available, this report includes an eGFR for both -Americans and non- Americans. The National Kidney Disease Education Program (NKDEP) does not endorse the use of the MDRD equation for patients that are not between the ages of 18 and 70, are , have extremes of body size, muscle mass, or nutritional status, or are non- or non-. According to the National Kidney Foundation, irrespective of diagnosis, the stage of the disease is based on the level of kidney function: Stage Description GFR(mL/min/1.73 m(2)) 1 Kidney damage with normal or decreased GFR 90 2 Kidney damage with mild decrease in GFR 60-89 3 Moderate decrease in GFR 30-59 4 Severe decrease in GFR 15-29 5 Kidney failure <15 (or dialysis) 67 ---- RUN DATE: 02/18/11 [facility] LIVE PAGE 1 RUN TIME: 1346 Specimen Inquiry RUN USER: INTERFACE -- Name: HARJEETKIANNA R Status: REG REF Re02/16/11 Age/Sex: 71/F Unit#: [id number] Location: [address] [place] [address]. : 41 -- Specimen: [id number] Spec Date: 02/16/[address]: Elieser ahumada MD Spec Type: SURGICAL P Received: 02/17/11-8907 Copies to: Colt arias MD SPECIMEN 1) DESCENDING COLON POLYP 2) SIGMOID COLON POLYP BIOPSY HISTORY POST-OP DIAGNOSIS: Colon polyps (2) CLINICAL INFORMATION: Follow-up for colon polyps; patient states had a l ittle blood x2 seven days ago; denies colon cancer in her family GROSS DESCRIPTION 1) The specimen is received in formalin labelled Kiannatimoteo Askew, Descending Colon Polyp, and consists of multiple alfredo, soft tissue fragments measuring 0.3 x 0.2 x 0.1 cm. Submitted entirely, one cassette. 2) The specimen is received in formalin labelled Kiannakate Salase, Sigmoid Colon Polyp Biopsy, and consists of multiple alfredo to brown-red, soft tissue fragments measuring 0.8 x 0.3 x 0.2 cm. Submitted entirely, one cassette. DIAGNOSIS 1) Colon, descending, biopsy: A. Tubular adenoma. B. No high grade dysplasia or malignancy. 2) Colon, sigmoid polyp, biopsy: Hyperplastic polyp. Signed Electronically by: JUNIOR MCKENZIE MD 02/18/11 1345 -- -- DEPARTMENT OF PATHOLOGY, [address] [place] [address] [facility] Permit #[id number] Junior Mckenzie M.D. Director Cristina Orlando M.D. Cloth Hauler Dir stoney -- 68 -- REFERENCE VALUE -- 25-HYDROXY D TOTAL (D2+D3) Optimum levels in the normal population are 25-80 Test Performed by: [facility] Dpt of Lab Med and Pathology [address] [place] [address] [address] Patcher: Maximo Palafox III, M.D. 69 Anion gap measurement may be of limited value in the presence of any alkalosis, especially in a combined acid base disorder. . 70 Note change in reference range as of 05/15/08. The change was based on recommendations from the [place] [employer]. 71 Please note change in reference range effective 08 . 72 Because ethnic data is not always readily available, this report includes an eGFR for both -Americans and non- Americans. The National Kidney Disease Education Program (NKDEP) does not endorse the use of the MDRD equation for patients that are not between the ages of 18 and 70, are , have extremes of body size, muscle mass, or nutritional status, or are non- or non-. According to the National Kidney Foundation, irrespective of diagnosis, the stage of the disease is based on the level of kidney function: Stage Description GFR(mL/min/1.73 m(2)) 1 Kidney damage with normal or decreased GFR 90 2 Kidney damage with mild decrease in GFR 60-89 3 Moderate decrease in GFR 30-59 4 Severe decrease in GFR 15-29 5 Kidney failure <15 (or dialysis) 73 CHOLESTEROL INTERPRETATION: Desirable: Less than 200 MG/DL Borderline-High Risk: 200-239 MG/DL High-Risk: 240 MG/DL and over 74 HDL INTERPRETATION: Undesirable: High Risk: Less than 40 MG/DL Desirable: Low Risk: Greater than 60 MG/DL 75 LDL INTERPRETATION: Low Risk Optimal Level: LDL Less than 100 MG/DL Near or Above Optimal: LDL 100-129 MG/DL Borderline High Risk: LDL 130-159 MG/DL High Risk: LDL 160-189 MG/DL Very High Risk: LDL Greater than 189 MG/DL 76 Anion gap measurement may be of limited value in the presence of any alkalosis, especially in a combined acid base disorder. . 77 Note change in reference range as of 05/15/08. The change was based on recommendations from the [place] [employer]. 78 Please note change in reference range effective 08 . 79 Because ethnic data is not always readily available, this report includes an eGFR for both -Americans and non- Americans. The National Kidney Disease Education Program (NKDEP) does not endorse the use of the MDRD equation for patients that are not between the ages of 18 and 70, are , have extremes of body size, muscle mass, or nutritional status, or are non- or non-. According to the National Kidney Foundation, irrespective of diagnosis, the stage of the disease is based on the level of kidney function: Stage Description GFR(mL/min/1.73 m(2)) 1 Kidney damage with normal or decreased GFR 90 2 Kidney damage with mild decrease in GFR 60-89 3 Moderate decrease in GFR 30-59 4 Severe decrease in GFR 15-29 5 Kidney failure <15 (or dialysis) 80 -- REFERENCE VALUE -- 25-HYDROXY D TOTAL (D2+D3) Optimum levels in the normal population are 25-80 Test Performed by: [facility] Dpt of Lab Med and Pathology [address] [place] [address] Road Patcher: Maximo Palafox III, M.D. 81 Anion gap measurement may be of limited value in the presence of any alkalosis, especially in a combined acid base disorder. . 82 Please note change in reference range effective 08 . 83 -- REFERENCE VALUE -- 25-HYDROXY D TOTAL (D2+D3) Optimum levels in the normal population are 25-80 Test Performed by: [facility] Dpt of Lab Med and Pathology [address] [place] [address] Road Patcher: Maximo Palafox III, M.D. 84 PLEASE NOTE CHANGE IN REFERENCE RANGE OF 10/02/06. 85 Classification: Borderline High . 86 Classification: High . 87 CALCULATED LDL APPROXIMATES THE VALUE OF A DIRECT LDL MEASUREMENT. Classification: Near or above optimal . 88 Anion gap measurement may be of limited value in the presence of any alkalosis, especially in a combined acid base disorder. . Procedures Date Code Description Status 11/20/2018 42978 EKG Tracing & Interpretation Completed 08/27/2018 [id number] Mammogram Completed 06/13/2018 11222 Colonoscopy Flexible Remove Tumor/Polyp/Lesion Snare Completed Technique 06/13/2018 96012 Colonoscopy,W/Directed Submucosal Injections, Any Completed Substance 06/13/2018 [id number] Colonoscopy Completed 08/22/2017 [id number] Colonoscopy Completed 08/10/2017 43791 ECHO Transthoracic, Real-Time 2D With Doppler And Completed Color Flow 08/10/2017 51835 ECHO Transthoracic, Real-Time 2D With Doppler And Completed Color Flow 05/24/2017 44370 EKG, Interpretation Only Completed 04/04/2017 [id number] Bone Mineral Density Test Completed 02/14/2017 [id number] Colonoscopy Completed 08/22/2016 [id number] Mammogram Completed 04/08/2016 26647 EKG, Interpretation Only Completed 03/23/2016 [id number] Colonoscopy Completed 08/17/2015 [id number] Bone Mineral Density Test Completed 08/10/2015 [id number] Mammogram Completed 08/15/2014 [id number] Mammogram Completed 06/21/2013 [id number] Mammogram Completed 11/01/2012 91779 EKG Tracing & Interpretation Completed 06/09/2011 [id number] Mammogram Completed 02/16/2011 [id number] Colonoscopy Completed 07/13/2009 [id number] Mammogram Completed 07/03/2008 [id number] Mammogram Completed 08/16/2006 56780 Stress Test Completed 08/16/2006 47478 ECHO/Stress Completed 08/16/2006 21557 ECHO/Stress Completed 08/02/2006 30945 Echocardiogram Completed 08/02/2006 82316 Pulse Doppler & Continuous Wave Completed 08/02/2006 65270 Pulse Doppler & Continuous Wave Completed 08/02/2006 02367 Color Doppler Completed 01/23/2006 [id number] Colonoscopy Completed Encounters Type Date Location Provider Dx Diagnosis Office Visit 11/09/2018 [facility] Internal Natalie Mercado, I10 Essential (primary ) 11:40a Medicine - N.P. hypertension [place] Office Visit 10/10/2018 [facility] Internal Anastacia Heredia, S61.552A Open bite of left 10:00a Medicine - [place] [employer] wrist, initial Rd encounter W55.01xA Bitten by cat, initial encounter K21.0 Gastro-esophageal reflux disease with esophagitis M47.26 Other spondylosis with radiculopathy, lumbar region M85.89 Oth disrd of bone density and structure, multiple sites I10 Essential (primary) hypertension S61.551A Open bite of right wrist, initial encounter Office Visit 07/25/2018 3:20p [facility] Anastacia Heredia, M54.41 Lumbago with Medicine - [place] [employer] sciatica, right Rd side K21.0 Gastro-esophageal reflux disease with esophagitis Office Visit 07/18/2018 9:20a [facility] Internal Anabelaofikraig Heredia, M54.41 Lumbago with Medicine - [place] [employer] sciatica, right Rd side M41.9 Scoliosis, unspecified K21.0 Gastro-esophageal reflux disease with esophagitis R63.4 Abnormal weight loss Office Visit 06/18/2018 [facility] Gastroenterology Elieser ZaneHarris Z86.010 Personal 2:00p MD Favian history of colonic polyps C18.9 Malignant neoplasm of colon, unspecified R63.4 Abnormal weight loss K21.0 Gastro-esophageal reflux disease with esophagitis Office Visit 03/30/2018 Neurosurgery Vassilios M41.9 Scoliosis, 11:00a Services Of Dom[facility] Chandra MD unspecified M47.26 Other spondylosis with radiculopathy, lumbar region Office Visit 02/28/2018 Neurosurgery Vassili[facility] M41.9 Scoliosis, 11:00a Services Of Domi Chandra MD unspecified M47.26 Other spondylosis with radiculopathy, lumbar region M48.07 Spinal stenosis, lumbosacral region Office Visit 11/03/2017 2:00p [facility] Internal Medicine MADHU BradleyP R30.0 Dysuria - [place] [address] K44.9 Diaphragmatic hernia without obstruction or gangrene N39.0 Urinary tract infection, site not specified Office Visit 09/26/2017 11:10a [facility] Internal Colt Mcdermott 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.,FACP heterophoria [place] I10 Essential (primary) hypertension K44.9 Diaphragmatic hernia without obstruction or gangrene G60.8 Other hereditary and idiopathic neuropathies Office Visit 08/28/2017 1:40p [facility] Internal Colt Mcdermott R63.4 Abnormal weight Medicine - Tbjudson Beaulieu M.D.,FACP loss Rd I10 Essential (primary) hypertension 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, right eye Office Visit 07/27/2017 3:40p [facility] Colt Mcdermott R63.4 Abnormal weight Cherelle Beaulieu M.D.,FACP loss Rd R42 Dizziness and giddiness I10 Essential (primary) hypertension H53.2 Diplopia Office Visit 03/21/2017 3:00p [facility] Colt Mcdermott Z00.01 Encounter for Cherelle Beaulieu M.D.,FACP general adult [place] medical exam w abnormal findings I10 Essential (primary) hypertension M81.0 Age-related osteoporosis w/o current pathological fracture C18.9 Malignant neoplasm of colon, unspecified E04.1 Nontoxic single thyroid nodule Office Visit 03/08/2017 10:50a [facility] Internal Colt Mcdermott J01.00 Acute maxillary Cherelle Beaulieu M.D.,FACP sinusitis, Rd unspecified Office Visit 01/25/2017 8:30a Orthopedic Dirk Dorota, M41.26 Other idiopathic Services Of Kerri scoliosis, lumbar C.M.A. region M47.26 Other spondylosis with radiculopathy, lumbar region M51.36 Other intervertebral disc degeneration, lumbar region Office Visit 01/06/2017 10:40a [facility] Colt Mcdermott M25.551 Pain in right Cherelle Beaulieu M.D.,FACP hip [place] [address] Office Visit 11/15/2016 9:50a [facility] Colt Mcdermott S33.5xxD Sprain of Cherelle Beaulieu M.D.,FACP ligaments of [place] lumbar spine, subsequent encounter M25.551 Pain in right hip Office Visit 11/10/2016 8:30a [facility] Denise S33.5xxA Sprain of Cherelle Stern M.D. ligaments of [place] lumbar spine, initial encounter Office Visit 10/11/2016 1:40p [facility] Internal Colt Mcdermott M54.2 Cervicalgia Iggy Garcia M.D.,FACP S20.211A Contusion of right front wall of thorax, initial encounter Office Visit 09/06/2016 [facility] Raymundo Gillis Z01.810 Encounter for 2:00p Cherelle Weber M.D. preprocedural [place] cardiovascular examination H26.9 Unspecified cataract I10 Essential (primary) hypertension C18.9 Malignant neoplasm of colon, unspecified Office Visit 07/18/2016 10:40a [facility] Roosevelt Reyes, W19.xxxA Unspecified fall, Medicine - [employer] COORDINATOR initial encounter [place] [address] S23.8xxA Sprain of other specified parts of thorax, initial encounter Office Visit 05/02/2016 2:00p [facility] Roosevelt Reyes, N76.0 Acute vaginitis Medicine - [place] [employer] COORDINATOR Rd Z12.4 Encounter for screening for malignant neoplasm of cervix Office Visit 04/25/2016 1:20p [facility] Roosevelt Reyes, C18.9 Malignant neoplasm Medicine - [place] [employer] COORDINATOR of colon, Rd unspecified I10 Essential (primary) hypertension K62.5 Hemorrhage of anus and rectum R19.5 Other fecal abnormalities Office Visit 03/03/2016 3:20p [facility] Roosevelt Reyes, [employer] COORDINATOR R53.83 Other fatigue Medicine - [place] [address] M54.5 Low back pain M15.9 Polyosteoarthritis, unspecified Office Visit 02/18/2016 1:00p [facility] Internal Roosevelt Reyes [employer] COORDINATOR R53.83 Other fatigue Medicine - [place] [address] M15.9 Polyosteoarthritis, unspecified R21 Rash and other nonspecific skin eruption Office Visit 08/28/2015 10:00a [facility] Roosevelt Reyes, J01.90 Acute sinusitis, Medicine - [employer] COORDINATOR unspecified [address] Office Visit 01/06/2015 11:00a [facility] Roosevelt Reyes, 788.1 Dysuria Medicine - COMM[employer] COORDINATOR [address] [address] 616.10 Vaginitis & Vulvovaginitis Unspec Office Visit 07/15/2014 9:00a [facility] Mihir Roberts, 923.3 Contusion Finger Medicine - [employer] COORDINATOR Iggy 959.5 Injury Finger Other & Unspec Office Visit 05/29/2014 10:30a [facility] Mihir Roberts, 919.4 Injury Superficial Medicine - [employer] COORDINATOR Insect Bite Oth Iggy Martins Unsp Nonv W/O Infect 336.8 Myelopathy Other E906.4 Bite Nonvenomous Arthropod Office Visit 06/25/2013 10:50a [facility] Colt Beaulieu, 724.3 Sciatica Cherelle Parkinson M.D.,FACP 281.1 Vitamin B12 Deficiency Anemia Other v04.81 Need For Prophylactic Vaccination & Inoculation/Influenza Office Visit 05/10/2013 4:00p [facility] Colt Beaulieu, 724.3 Sciatica [facility] Naya Parkinson M.D.,FACP 780.79 Malaise And Fatigue Other Office Visit 02/27/2012 9:45a [facility] Denise 691.8 Dermatitis Atopic Cherelle Stern M.D. & Related [place] Conditions Other Office Visit 01/12/2012 2:15p [facility] Denise v06.1 Diphtheria- Tetanu Cherelle Stern M.D. s-Pertusis [place] Combined (DTaP) 916.9 Injury Superficial Hip Thigh Leg Ankle Other Unspec Infected Office Visit 05/21/2010 10:00a DO Not Use Domi Mcdermott 401.1 Hypertension AT Karime Beaulieu M.D.,FACP Benign 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 V76.10 Screening For Malignant Neoplasm Breast 835.00 Dislocation Hip Closed Unspec Office Visit 04/29/2009 1:00p DO Not Use Domi Mcdermott 401.1 Hypertension AT Karime Beaulieu M.D.,FACP Benign 272.2 Hyperlipidemia Mixed 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 Office Visit 07/15/2008 2:40p DO Not Use Domi Mcdermott 717.49 Derangement AT Karime Beaulieu M.D.,FACP Lateral Meniscus Other Office Visit 04/15/2008 9:00a DO Not Use Domi Mcdermott 401.1 Hypertension AT Karime Beaulieu M.D.,FACP Benign 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 Office Visit 10/18/2007 8:40a DO Not Use Domi Mcdermott 733.90 Bone & Cartilage AT Karime Beaulieu M.D.,FACP Disorder Unspec 401.1 Hypertension Benign 473.9 Sinusitis Chronic Unspec Plan of Treatment 11/23/2018 - Colt Beaulieu M.D.,FACPR23.2 FlushingComments:Discussed possible causes including hormonal issues and low blood sugar episodes. Advised checking your glucose readings at home. Complete bloodwork and 24 hr creatinine test as discussed. Please collect urine in a jug with powder.I10 Essential ( primary) hypertensionComments:You are meeting target blood pressure. Continue low salt diet and Felodipine. Aerobic exercise 30 minutes 5 times per week should improve blood pressure. Goals 11/23/2018 - Colt Beaulieu M.D.,FACPI10 Essential (primary) hypertensionBlood pressure goal <140/90 in general. Blood pressure goal < 150/90 in people older than 75. Blood pressure goal <130/85 in diabetic patients. Goal BMI is less than 25.
--- OUTSIDE RECORDS SUMMARY | 2018-11-28 20:52 | XMS REPORT | Continuity of Care Document ---
:1940 External Reference #:[id number] Author Name Lizet Morejon Care Team Providers Name Role Phone Colt Beaulieu MD Primary Care Physician Unavailable Payers Date Identification Numbers Payment Provider Subscriber Policy Number: [id number] Medicare Kianna Askew PayID: [id number] [address] [facility] [place] [address] Policy Number: [id number] [facility] Kianna Salase PayID: [id number] [address] [place] [address] Effective: 2006 Policy Number: [id number] Medicare Kianna Askew Expires: 2018 PayID: [id number] [address] [place] [address] Effective: 2016 Policy Number: [id number] [facility] Kianna Salase Ins Onset: 2016 Group Number: [id number] PayID: [id number] JUAN JOSE Barnes [id number] Expires: 2018 Policy Number: [id number] [employer]na [employer] Group Number: [id number] [address] PayID: [id number] [place] [address] PayID: [id number] Medicare D - Drug Plan Kianna Askew [...] Onset: 08/28/2017 Central serous chorioretinopathy Meli Power M.D.,FACP Onset: 02/28/2018 Scoliosis deformity of spine Juana [...] Comments : (age 52 Father due to [place] Years) Father due to Heart () - in 40s, Disease ?RF : (age 84 Mother due to [place] Years) Siblings 1 First Brother Hypertension First Brother Leukemia ALL Social History Type Date Description Comments Sex Unknown Marital Status Significant Other Lives With Partner 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 Tobacco Use Start: Unknown Never Smoked Cigarettes ETOH Use 04/05/2018 Occasionally consumes alcohol Tobacco Use Start: Unknown Patient has never smoked Recreational Drug Use Denies Drug Use Smoking Status Reviewed: 11/20/18 Patient has never smoked Enjoy Exercising Enjoys [...] s tablet by Yan, 10/10/ mouth 3x BAND LEADER 2019 daily as needed for back pain Aspercreme 07/18/ Hx Patches 4% 10uni 1 path M54.41 Zsofia Lidocaine 2018 - ts daily for Yan, 11/09/ back pain B[employer] LEADER 2019 G89.4 Suprep 05/02/2018 - Hx Solution 17.5-3.13-1.6GM/180ML 1units Take as Elieser Grissom Bowel Prep 11/09/2018 directed Андрей Ballesteros the day MD before procedure Tramadol 04/05/2018 - Hx Tablets 50mg 30tabs Take 1 tab M5 Zsofia HCL 10/10/2018 po qday, do 4. aYn, not drive 41 BAND LEADER when taking this medication. M47.26 Ciprofloxacin HCL 11/03/2017 - Hx Tablets 250mg 10tabs take 1 tab R30.0 Zsofia 02/28/2018 by mouth Yan, twice a day [employer] for 5 days Omeprazole 08/28/2017 - Hx Capsules 20mg 90caps 1 by mouth R63.4 Carmen Valentino 02/28/2018 every day Sharron Beaulieu, for 2 wks M.DHarris,FACP then prn Felodipine ER 08/28/2017 - Hx Tablets ER 2.5mg 90tabs Take One I10 Zsofia 04/05/2018 24HR Tablet By Yan, Mouth Every B[employer] LEADER Day Lisinopril 07/21/2017 - Hx Tablets 5mg 90tabs 1 by mouth I10 Colt 07/27/2017 every day Sharron Beaulieu M.D.,[facility] Felodipine ER 03/21/2017 - Hx Tablets ER 2.5mg 90tabs 1 by mouth I10 Colt 07/21/2017 24HR every day Sharron Beaulieu M.D.,NITO Amoxicillin 03/08/2017 - Hx Tablets 500mg 40tabs 2 tabs by Colt 03/18/2017 mouth twice Sharron Beaulieu, a day for Kerri,JOHNP 10 days Lumbo Sacral 01/25/2017 - Hx M41.26 Dirk Artisset, 10-12 02/28/2018 Dorota, Inches High With Kerri Some Support Cyclobenzaprine 11/10/2016 - Hx Tablets 5mg 10tabs take one S33.5xx Denise HCL 01/06/2017 tablet by Selena Stern, mouth at M.D. night as needed for spasms Doxycycline 08/16/2016 - Hx Capsules 100mg 2caps 2 tablets x Roosevelt Hyclate 08/17/2016 1 day Algerian, [employer]M [employer] PLASTER Triamcinolone 05/02/2016 - Hx Cream 0.1% 30gm apply thin N76.0 Roosevelt Acetonide 05/16/2016 layer Algerian, topically [employer]M [employer] PLASTER twice a day to affected area [id number] Tylenol Extra 03/03/2016 - Hx Tablets 500mg 1 tab po M54.41 Roosevelt Strength 05/02/2016 qid every Algerian, 4-6 hours [employer]ER prn pain Amoxicillin/Clavul 08/28/2015 - Hx Tablets 875-125 20tabs 1 tablet by J01.90 Roosevelt anate Potassium 09/07/2015 mg mouth twice Algerian, a day x's [employer] PLASTER 10 days Fluconazole 01/06/2015 - Hx Tablets 150mg 2tabs 1 tablet by 616.10 Roosevelt 01/13/2015 mouth daily Algerian, today, then FORM [employer] PLASTER repeat in 1 week. Doxycycline 03/08/2013 - Hx Tablets 100mg 4tabs 2 tabs po Colt Hyclate 05/10/2013 x1 then prn Sharron Beaulieu M.D.,[facility] Felodipine ER 11/02/2010 - Hx Tablets ER 5mg 90tabs Take One I10 Carmen Avelar 03/21/2017 24HR Tablet By Sharron Beaulieu, Mouth Every M.DHarris,FACP Morning Fish Oil 05/21/2010 - Hx Capsules [...] 600/200 180tabs PO bid Colt 11/01/2012 Sharron Baeulieu M.D.,FACP Calcium 1200 + D - Hx [...] Code Status Date Vaccine Reaction Lot # [id number] Given 04/05/2018 Tetanus And Diptheria (Td) [id number] For Adult Use Preservative Free 88145 Given 08/03/2017 Influenza Virus Vaccine, Quadrivalent, Split, Preservative Free 25407 Given 08/14/2016 Influ Virus Vaccine, Quadrivalent, Split Virus, [place] [address] Given 07/16/2015 Influenza Virus Vaccine, no reaction noted. Pt [id number] Quadrivalent, Split, consented to flu Preservative Free injection and NYSIIS. 41930 Given 07/16/2015 Pneumococcal Conjugate No reaction noted [id number] Vaccine 13 Valent For Intramuscular Use 84395 Given 06/25/2013 Flu Vaccine Split Virus [id number] Preservative Free For Indiv 3Yr Older 38998 Given 07/04/2012 Influenza Virus 3Yrs & Over 18701 Given 01/12/2012 Tdap - [id number] Tetanus/Diptheria/Acellular Pertussis Q2038 Given 06/13/2011 Fluzone Vaccine [id number] 44740 Given 06/03/2008 Zoster (Zostavax) 63536 Given 07/15/2003 Pneumonia Vaccine 03249 Given 07/15/2003 Pneumonia Vaccine Vital Signs Date Vital Result Comment 11/20/2018 11:42am Height 63.5 inches 5'3.50" Weight [...] Date Facility Test Result H/L Range Note Order 11/20/2018 [facility]-House EKG <pending> BUN/Creat/GFR 07/06/2018 [facility] Poc Blood Urea 21 mg/dL N 8-[address] [place] [address] [phone] Poc Creatinine 1.0 mg/dL N 0.6-1.3 1 Poc BUN/Creatinine Ratio 21.0 High 8-20 Egfr Non- 53.8 >60 Egfr 65.1 >60 2 Laboratory test 06/13/2018 [facility] Surgical Pathology SEE 3, [address] [place] [address] BELOW [phone] Laboratory test 01/15/2018 [facility] Carcinoembryonic 2.8 ng/ mL N 0.1 [address] Antigen Cea -5. [place] [address] 0 [phone] Urine Culture And 11/03/2017 [facility] Urine Culture SEE 6 , [address] [place] [address] BELOW [phone] Ua Routine 11/03/2017 [facility] House Ua Specific [place] 1.015 Ua PH 5 Ua Color dark yellow Ua Appera cloudy Ua WBC ++ Ua Protein +30 Ua Glucose normal Ua Ketones neg Ua Bilirubin neg Ua Urobilinogen normal Ua Nitrite neg Ua Occult Blood large Laboratory 10/10/2017 [facility] Carcinoembryonic 2.5 ng/mL N 0.1-5.0 8 test finding [address] [place] [address] [phone] Laboratory 10/10/2017 [facility] Magnesium 2.1 mg/dL N 1.9- 2.7 test finding [address] [place] [address] [phone] Laboratory 08/22/2017 [facility] Surgical Pathology SEE RESULT 9 test finding [address] [place] [address] [phone] Laboratory 08/22/2017 [facility] Clotest SEE RESULT 10 test finding [address] BELOW [place], [place] [id number] [phone] Myasthenia 08/08/2017 [facility] MG Lambert-Eaton See 11 Gravis (), [address] [place] [address] [phone] Acetylcholine Receptor Binding 0.00 nmol/L <=0.02 12 Acetylcholine Recept Mod Ab 0 % 13 Anti-Striated Muscle Antibody Negative titer <1:120 14 Laboratory test finding 08/08/2017 [facility] Lipase 17 U/L N 11.0-82.[address] [place] [address] [phone] Glucose 99 mg/dL N 70-100 16 Insulin Level 7.7 mcIU/mL 2.6 - 24.9 17 Laboratory test 07/26/2017 [facility] Erythrocyte Sed 7 mm/Hr N 0-[address] [place] [address] [phone] Comp Metabolic 07/26/2017 [facility] Sodium 137 mmol/L N 133- [address] [place] [address] [phone] Potassium 4.5 mmol/L N 3.5-5.0 Chloride 99 [...] 60.9 N >60 Egfr 78.3 N >60 18 Laboratory test 07/26/2017 [facility] T3 Total 1.07 ng/mL N 0.87-1.78 finding [address] [place] [address] [phone] TSH (Thyroid Stim Horm) 2.95 mcIU/mL N 0.34-5.60 CBC Auto Diff 07/26/2017 [facility] White Blood 4.9 10^3/uL N 3.5-10.[address] [place] [address] [phone] Red Blood Count 4.19 10^6/uL N 4.0-5.4 [...] Cells % 0.2 N Laboratory test 07/12/2017 [facility] Point of Care 75 mg/dL N 70-100 [address] [place] [address] [phone] CBC Auto Diff 06/14/2017 [facility] White Blood 5.7 10^3/uL N 3.5-10.[address] [place] [address] [phone] Red Blood Count 4.03 10^6/uL N 4.0-5.4 [...] Cells % 0.1 N Laboratory test 06/14/2017 [facility] TSH (Thyroid 1.33 mcIU/mL N 0.34-5.[address] Stim Horm) [place] [address] [phone] Vitamin B12 479 pg/mL N 180-914 20 Basic Metabolic Panel 05/23/2017 [facility] Sodium 137 mmol/L N 133-[address] [place] [address] [phone] Potassium 4.2 mmol/L N 3.5-5.0 Chloride 100 mmol/L Low 101-111 Co2 Carbon Dioxide 34 mmol/L High 22-32 Anion Gap 3 mmol/L N 2-11 Glucose 99 mg/dL N 70-100 Blood Urea Nitrogen 18 mg/dL N 6-24 Creatinine 0.75 mg/dL N 0.51-0.95 BUN/Creatinine Ratio 24.0 High 8-20 Calcium 9.1 mg/dL N 8.6-10.3 Egfr Non- 75.1 N >60 Egfr 96.6 N >60 21 Laboratory 05/23/2017 [facility] Carcinoembryonic 3.2 ng/mL N 0.1-5.0 22 test finding [address] [place] [address] [phone] Laboratory 02/14/2017 [facility] Surgical Pathology SEE 23 test finding [address] [place] [address] BELOW [phone] Laboratory 02/02/2017 [facility] Carcinoembryonic 3.2 ng/mL N 0.1-5.0 24 test finding [address] [place] [address] [phone] CBC Auto Diff 02/02/2017 [facility] White Blood Count 7.8 N 3.5-10.[address] 10^3/[place] [address] [phone] Red Blood Count 4.39 10^6/uL N 4.0-5.4 [...] Cells % 0 N CBC Auto Diff 01/13/2017 [facility] White Blood 5.8 10^3/uL N 3.5-10.[address] [place] [address] [phone] Red Blood Count 4.34 10^6/uL N 4.0-5.4 [...] Blood Cells % 0 N Laboratory test 01/13/2017 [facility] TSH (Thyroid 1.85 mcIU/mL N 0.34-5.[address] Stim Horm) [place] [address] [phone] Vitamin B12 455 pg/mL N 180-914 25 Basic Metabolic 01/13/2017 [facility] Sodium 132 mmol/L Low 133-[address] [place] [address] [phone] Potassium 4.7 mmol/L N 3.5-5.0 Chloride 95 mmol/L Low 101-111 Co2 Carbon Dioxide 32 mmol/L N 22-32 Anion Gap 5 mmol/L N 2-11 Glucose 92 mg/dL N 70-100 Blood Urea Nitrogen 16 mg/dL N 6-24 Creatinine 0.71 mg/dL N 0.51-0.95 BUN/Creatinine Ratio 22.5 High 8-20 Calcium 9.4 mg/dL N 8.6-10.3 Egfr Non- 80.3 N >60 Egfr 103.2 N >60 26 Laboratory test 05/02/2016 [facility] Gardnerella/Yeast: SEE RESULT [address] [place] [address] [phone] Laboratory test 05/02/2016 [facility] Cytology SEE RESULT [address] [place] [address] [phone] Trichomonas Vaginalis Rna Negative N Negative 29 HPV Rna Ww/Reflex Genotype Negative N Negative 30 CBC Auto Diff 04/25/2016 [facility] White Blood 5.5 10^3/uL N 3.5-10.[address] [place] [address] [phone] Red Blood Count 3.95 10^6/uL Low 4.0-5.4 [...] % 0 N CBC Auto Diff 04/25/2016 [facility] White Blood 8.4 10^3/uL N 3.5-10.[address] [place] [address] [phone] Red Blood Count 3.93 10^6/uL Low 4.0-5.4 [...] % 0 N Urine Culture And 04/12/2016 [facility] Urine SEE RESULT 31 , [address] [place] [address] [phone] CBC Auto Diff 03/23/2016 [facility] White Blood 5.0 10^3/uL N 3.5-[address] Count 0.8 [place] [address] [phone] Red Blood Count 4.23 10^6/uL N 4.0-5.4 [...] Blood Cells % 0.1 N Laboratory 03/23/2016 [facility] Carcinoembryonic 3.1 ng/mL N 0.1-5.0 34 test finding [address] Antigen Cea [place], [place] [address] [phone] Comp Metabolic 03/23/2016 [facility] Sodium 139 N 133-[address] mmol/[place] [address] [phone] Potassium 4.1 mmol/L N 3.5-5.0 Chloride 101 [...] 101.3 N >60 Egfr 130.3 N >60 35 Laboratory test 03/23/2016 [facility] Surgical SEE RESULT 36, [address] [place] [address] [phone] Laboratory test 02/19/2016 [facility] TSH (Thyroid 1.51 ?IU/mL N 0.34- finding [address] Stim Horm) 5.60 [place] [address] [phone] CBC Auto Diff 02/19/2016 [facility] White Blood 4.7 10^3/uL N 3.5-[address] Count 0.8 [place] [address] [phone] Red Blood Count 4.21 10^6/uL N 4.0-5.4 [...] % 0.9 N Basic Metabolic Panel 02/19/2016 [facility] Sodium 137 mmol/L N 133-[address] [place] [address] [phone] Potassium 4.7 mmol/L N 3.5-5.0 Chloride 101 mmol/L N 101-111 Co2 Carbon Dioxide 31 mmol/L N 22-32 Anion Gap 5 mmol/L N 2-11 Glucose 91 mg/dL N 70-100 Blood Urea Nitrogen 16 mg/dL N 6-24 Creatinine 0.74 mg/dL N 0.51-0.95 BUN/Creatinine Ratio 21.6 High 8-20 Calcium 8.9 mg/dL N 8.6-10.3 Egfr Non- 76.5 N >60 Egfr 98.4 N >60 38 Laboratory test 02/19/2016 [facility] Lyme Disease Negative N Negative [address] [place] [address] [phone] Vitamin D Total 25(Oh) 33.9 ng/mL N 30-50 Ua Routine 01/06/2015 [facility] Ua Specific [place] 1.010 Ua PH 7.0 Ua Color yellow Ua Appera clear Ua WBC neg Ua Protein trace Ua Glucose neg Ua Ketones trace Ua Bilirubin small Ua Urobilinogen neg Ua Nitrite neg Ua Occult Blood neg Urine Culture And 01/06/2015 [facility] Urine Culture (SEE NOTE ) [address] [place] [address] [phone] Urinalysis Profile 06/30/2014 [facility] Urine Color Yellow [address] [place] [address] [phone] Urine Appearance Clear N Urine Specific [place] 1.012 N 1.010-1.030 Urine pH 7.0 N 5-9 Urine Urobilinogen Negative N Negative Urine Ketones Negative N Negative Urine Protein Negative N Negative Urine Leukocytes Negative N Negative Urine Blood Negative N Negative Urine Nitrite Negative N Negative Urine Bilirubin Negative N Negative Urine Glucose Negative N Negative Vitamin D, 25 05/29/2014 [facility] 25-Hydroxy Vitamin <4.0 ng/ mL N Hydroxy [address] [address] [phone] 25-Hydroxy Vitamin D3 36 ng/mL N 25-Hydroxy Vitamin D Total 36 ng/mL N 41 Laboratory test 05/29/2014 [facility] Erythrocyte Sed 8 mm/Hr N 0-[address] [place] [address] [phone] C Reactive Protein 1.74 mg/L N < 5.00 42 Rheumatoid Factor <15 IU/mL N <15 43 Shanice (Anti-Nuclear AB) Screen Negative N Negative Comp Metabolic Panel 05/29/2014 [facility] Sodium 134 mmol/L N 133-[address] [place] [address] [phone] Potassium 4.3 mmol/L N 3.7-5.6 Chloride 99 [...] 91.0 N >60 Egfr 117.0 N >60 44 Lyme Western 05/29/2014 [facility] Lyme Disease Negative N Negative Blot [address] [place] [place] [address] [phone] Lyme Disease IgG Bands Present p41, kDa N Lyme Disease IgM Ab WB Negative N Negative Lyme Disease IgM Bands Present No bands detecte <SEE NOTE> kDa N 45 Lyme Disease Interpretation See Comment N 46 Laboratory test 07/02/2013 [facility] Methylmalonic 0.19 <= 0.40 [address] Acid nmol/[place] [address] [phone] Vitamin B12 And 07/02/2013 [facility] Vitamin B12 416 pg/mL 180-914 Folate Serum [address] [place] [address] [phone] Folate 15.7 ng/mL 2-16 CBC Auto 06/17/2013 [facility] White Blood 4.7 10^3/uL Low 4.8 -10.[address] [place] [address] [phone] Red Blood Count 4.23 10^6/uL 4.0-5.4 Hemoglobin 14.3 g/dL 12.0-16.0 Hematocrit 42 % 35-47 Mean Corpuscular Volume 98 fL High 80-97 Mean Corpuscular Hemoglobin 34 pg High 27-31 Mean Corpuscular HGB Conc 34 g/dL 31-36 Red Cell Distribution Width 12 % 10.5-15 Platelet Count 213 10^3/uL 150-450 Mean Platelet Volume 10 um3 7.4-10.4 48 Abs Neutrophils 3.1 10^3/uL 1.5-7.7 Abs Lymphocytes 1.0 10^3/uL 1.0-4.8 Abs Monocytes 0.5 10^3/uL 0-0.8 Abs Eosinophils 0.1 10^3/uL 0-0.6 Abs Basophils 0.1 10^3/uL 0-0.2 Abs Nucleated RBC 0 10^3/uL Granulocyte % 65.4 % 38-83 Lymphocyte % 20.7 % Low 25-47 Monocyte % 10.4 % High 1-9 Eosinophil % 2.1 % 0-6 Basophil % 1.4 % 0-2 Nucleated Red Blood Cells % 0 Protein 06/17/2013 [facility] Total 7.2 g/dL 6.3 - Electrophoresis [address] Protein(Pep) 7.9 [place] [address] [phone] Albumin 3.8 g/dL 3.4-4.7 Alpha-1 Globulin 0.2 g/dL 0.1-0.3 Alpha-2 Globulin 1.0 g/dL 0.6-1.0 Beta Globulin 1.2 g/dL 0.7-1.2 Gamma Globulin 1.0 g/dL 0.6-1.6 Albumin/Globulin Ratio 1.12 Impression See Comment 49 Laboratory test 06/17/2013 [facility] Lyme Disease Negative Negative [address] [place] [address] [phone] C Reactive Protein < 0.5 mg/dL Less than 0.5 Comp Metabolic Panel 06/17/2013 [facility] Sodium 138 mmol/L 133-[address] [place], [place] [address] [phone] Potassium 3.9 mmol/L 3.5-5.0 Chloride 101 mmol/L [...] Egfr Non- 98.3 >60 Egfr 126.4 >60 51 Manual Differential 09/04/2012 [facility] Platelet Morphology Large [address] [place] [address] [phone] Neutrophil % 66.0 % 38-83 Band % 4.0 % 0-8 Lymphocytes % 18.0 % Low 25-47 Monocytes % 8.0 % 0-13 Eosinophils % 1.0 % 0-6 Basophil % 0 % 0-2 Reactive Lymph % 3.0 % 0-6 Metamyelocytes % 0 % 0-2 Myelocytes % 0 % 0-1 Promyelocytes % 0 % Blast % 0 % RBC Morphology Normal Normal Vitamin D, 25 09/04/2012 [facility] 25-Hydroxy Vitamin <4.0 ng/ mL Hydroxy [address] D2 [place] [address] [phone] 25-Hydroxy Vitamin D3 25 ng/mL 25-Hydroxy Vitamin D Total 25 ng/mL 52 Basic Metabolic Panel 09/04/2012 [facility] Sodium 133 mmol/L 133-[address] [place] [address] [phone] Potassium 3.9 mmol/L 3.5-5.0 Chloride 99 mmol/L Low 101-111 Co2 Carbon Dioxide 30.0 mmol/L 22-32 Anion Gap 4.0 mmol/L 2-11 Glucose 90 mg/dL 70-100 Blood Urea Nitrogen 11 mg/dL 6-24 Creatinine 0.70 mg/dL 0.50-1.40 BUN/Creatinine Ratio 15.7 8-20 Calcium 8.7 mg/dL 8.1-9.9 Egfr Non- 82.5 >60 Egfr 106.1 >60 53 Iron & Iron Binding 09/04/2012 [facility] Iron 67 UG/ML 28- 170 [address] [place] [address] [phone] Unsaturated Iron Binding 328 g/dL Total Iron Binding Capacity 395 g/dL 250-450 Transferrin 281.9 % Iron Saturation 17 % 15-55 CBC Auto 09/04/2012 [facility] White Blood 4.1 10^3/uL Low 4.8 -10.[address] [place] [address] [phone] Red Blood Count 3.90 10^6/uL Low 4.0-5.4 [...] Nucleated RBC 0.01 10^3/uL Lipid Panel 06/03/2011 [facility] Triglyceride 48 mg/dL 40- 200 54 [address] [place] [address] [phone] Cholesterol 194 mg/dL Less Than 200 55 High Density Lipoprotein 78 mg/dL High 40-60 56 Cholesterol/HDL Ratio 2.49 AVERAGE 1-4.44 Low Density Lipoprotein 106 mg/dL High Less Than 100 57 BMP Basic Metabolic 06/03/2011 [facility] Sodium 139 mmol/L 135-145 Panel [address] [place] [address] [phone] Potassium 4.8 mmol/L 3.5-5.0 Chloride 101 mmol/L 101-111 Co2 (Carbon Dioxide) 31.0 mmol/L 22-32 Anion Gap 7.0 mmol/L 2-11 58 Glucose 97 mg/dL 70-100 BUN 13 mg/dL 6-24 Creatinine 0.7 mg/dL 0.50-1.40 One Over Creatinine 1.42 BUN/Creatinine Ratio 18.6 8-20 Calcium 9.2 mg/dL 8.1-9.9 eGFR Non- 82.7 > 60 eGFR 106.4 > 60 59 Surgical 02/16/2011 [facility] Surgical 60 Pathology 101 [facility] Pathology <SEE NOTE> [place] [address] [phone] Vitamin D, 25 05/21/2010 [facility] 25-Hydroxy <4.0 ng/mL () Hydroxy 101 [facility] Vitamin D2 [place] [address] [phone] 25-Hydroxy Vitamin D3 40 ng/mL () 25-Hydroxy Vitamin D Total 40 ng/mL () 61 Basic Metabolic 05/21/2010 [facility] Sodium 134 mmol/L Low 135-145 Panel [address] [place] [address] [phone] Potassium 5.4 mmol/L High 3.5-5.0 Chloride 100 mmol/L Low 101-111 Co2 (Carbon Dioxide) 29.0 mmol/L 22-32 Anion Gap 5.0 mmol/L 2-11 62 Glucose 93 mg/dL 70-100 63 BUN 13 mg/dL 6-24 Creatinine 0.60 mg/dL 0.50-1.40 One Over Creatinine 1.60 BUN/Creatinine Ratio 21.7 High 8-20 Calcium 8.7 mg/dL 8.1-9.9 64 eGFR Non- 105.4 > 60 eGFR 127.5 > 60 65 Lipid Profile 04/22/2009 [facility] Triglyceride 43 mg/dL 40- 200 (Trig/Chol/HDL) [address] [place] [address] [phone] Cholesterol 199 mg/dL Less Than 200 66 High Density Lipoprotein 75 mg/dL High 40-60 67 Cholesterol/HDL Ratio 2.65 AVERAGE 1-4.44 Low Density Lipoprotein 115 mg/dL High Less Than 100 68 Basic Metabolic Panel 04/22/2009 [facility] Sodium 139 mmol/L 135-145 [address] [place] [address] [phone] Potassium 4.3 mmol/L 3.5-5.0 Chloride 105 mmol/L 101-111 Co2 (Carbon Dioxide) 31.0 mmol/L 22-32 Anion Gap 3.0 mmol/L 2-11 69 Glucose 84 mg/dL 70-100 70 BUN 11 mg/dL 6-24 Creatinine 0.70 mg/dL 0.50-1.40 One Over Creatinine 1.40 BUN/Creatinine Ratio 15.7 8-20 Calcium 9.1 mg/dL 8.1-9.9 71 eGFR Non- 88.4 > 60 eGFR 107.0 > 60 72 Vitamin D, 25 04/09/2008 [facility] 25-Hydroxy Vitamin <4.0 ng/ mL () Hydroxy [address] [address] [phone] 25-Hydroxy Vitamin D3 35 ng/mL () 25-Hydroxy Vitamin D Total 35 ng/mL () 73 Basic Metabolic 04/09/2008 [facility] Sodium 133 mmol/L Low 135-[address] [place] [address] [phone] Potassium 4.8 mmol/L 3.5-5.0 Chloride 103 mmol/L 101-111 Co2 (Carbon Dioxide) 30.0 mmol/L 22-32 Anion Gap 0 mmol/L Low 2-11 74 Glucose 84 mg/dL 70-105 BUN 13 mg/dL 6-24 Creatinine 0.8 mg/dL 0.5-1.4 One Over Creatinine 1.25 BUN/Creatinine Ratio 16.3 8-20 Calcium 8.6 mg/dL 8.1-9.9 75 Vitamin D, 25 10/10/2007 [facility] 25-Hydroxy Vitamin <4.0 ng/ mL () Hydroxy [address] [place] [address] [phone] 25-Hydroxy Vitamin D3 28 ng/mL () 25-Hydroxy Vitamin D Total 28 ng/mL () 76 PTH Intact, Inc 10/10/2007 [facility] Calcium For 9.1 mg/dL 8.7-10.2 Total Calcium [address] [place] [address] [phone] PTH Intact 4.2 PMOL/L 1.3-9.3 77 Lipid Profile 10/10/2007 [facility] Cholesterol/HDL 2.64 1- 4.44 (Trig/Chol/HDL) [address] [address] [phone] Cholesterol 201 mg/dL High Less Than 200 78 Triglyceride 58 mg/dL 40-200 High Density Lipoprotein 76 mg/dL High 40-60 79 Low Density Lipoprotein 113 mg/dL High Less Than 100 80 Basic Metabolic 10/10/2007 [facility] One Over Creatinine 1.[address] [place] [address] [phone] Anion Gap 4.0 mmol/L 2-11 81 BUN 12 mg/dL 6-24 Calcium 9.2 mg/dL 8.7-10.2 Chloride 99 mmol/L Low 101-111 Co2 (Carbon Dioxide) 33.0 mmol/L High 22-32 Glucose 91 mg/dL 70-105 Potassium 4.2 mmol/L 3.5-5.0 Sodium 136 mmol/L 135-145 BUN/Creatinine Ratio 17.1 8-20 Creatinine 0.7 mg/dL 0.5-1.4 1 Core Filer: [id number] 2 Because ethnic data is not always readily [...] 15-29 5 Kidney failure <15 (or dialysis) 3 [id number] 4 SEE RESULT BELOW Name: KIANNA ASKEW : [address]: Elieser Ballesteros MD Acct: [id number] Unit: [id number] AGE: 78 Location: [facility] Re06/13/18 SEX: F Status: DEP REF SPEC: [id number] MARISEL: 06/13/18-[address] [facility] [address]: Elieser Ballesteros MD REQ: [id number] RECD: 06/13/18 STATUS: YA CALL DR: Colt Garcia MD _ ORDERED: LEVEL 4/4 COMMENTS: [id number] FINAL DIAGNOSIS 1. Colon, transverse, biopsy: -- [...] CONTINUED ON NEXT PAGE DEPARTMENT OF PATHOLOGY, [address] [place] [address] Juniro Mckenzie M.D. Director PATRICK # [id number] RUN DATE: 06/14/18 [facility] LAB LIVE PAGE 2 Patient: JAMILAHKIANNA Jackson [id number] (Continued) GROSS DESCRIPTION (Continued) GROSS DESCRIPTION 1. [...] 1533 END OF REPORT DEPARTMENT OF PATHOLOGY, [address] [place] [address] Junior Mckenzie M.D. Director [facility] # [id number] 5 Nonsmokers: < 2.9 ng/mL Some smokers may have elevated CEA, usually <5.0 ng/mL. Serum markers are not specific for malignancy, and values may vary by method. The testing method is an immunoenzymatic assay transplant surgeon by [employer] performed on Azael [employer] DXI 600. Do not interpret serum CEA levels as absolute evidence of the presence or the absence of malignant disease. Use serum CEA in conjunction with information from the clinical evaluation of the patient and other diagnostic procedures. 6 [id number] 7 SEE RESULT BELOW Name: KIANNA ASKEW : [address]: Anastacia Heredia NP Acct: [id number] Unit: [id number] AGE: 77 Location: [facility] Re11/03/17 SEX: F Status: REG REF SPEC: [id number] MARISEL: 11/03/17-[address] [facility] [address]: Anastacia Heredia NP REQ: [id number] RECD: 11/03/17 STATUS: COMP _ SOURCE: URINE SPDESC: ORDERED: Urine Culture COMMENTS: [id number] Urine Source: Random Procedure Result Reported Site Urine Culture Final 11/05/17- 954 ML No Growth (<1,000 CFU/mL) * ML - MAIN LAB ([facility]) . END OF REPORT * ML=Testing performed at Main Lab DEPARTMENT OF PATHOLOGY, [address] [place] [address] Junior Mckenzie M.D. Director [facility] # [id number] 8 Nonsmokers: < 2.9 ng/mL Some smokers may have elevated CEA, usually <5.0 ng/mL. Serum markers are not specific for malignancy, and values may vary by method. The testing method is an immunoenzymatic assay transplant surgeon by [employer] performed on Azael [employer] DXI 600. Do not interpret serum CEA levels as absolute evidence of the presence or the absence of malignant disease. Use serum CEA in conjunction with information from the clinical evaluation of the patient and other diagnostic procedures. 9 SEE RESULT BELOW Name: KIANNA ASKEW : [address]: Elieser Ballesteros MD Acct: [id number] Unit: [id number] AGE: 77 Location: [facility] Re08/22/17 SEX: F Status: DEP REF SPEC: [id number] MARISEL: 08/22/17-[address] [facility] [address]: Elieser Ballesteros MD REQ: [id number] RECD: 08/22/17 STATUS: YA CALL DR: Colt [...] performed at Main Lab DEPARTMENT OF PATHOLOGY, [facility] [employer] [place], [place] [address] Junior Mckenzie M.D. Director [facility] # [id number] RUN DATE: 08/23/17 [facility] LAB LIVE PAGE 2 Patient: KIANNA ASKEW Jackson [id number] (Continued) GROSS DESCRIPTION (Continued) Signed (signature on file) Junior Mckenzie MD 1333 END OF REPORT * ML=Testing performed at Main Lab DEPARTMENT OF PATHOLOGY, [facility] [employer] [place], [place] [address] Junior Mckenzie M.D. Director PATRICK # [id number] 10 SEE RESULT BELOW Name: SAIDA ASKEWRADHA Paz : [address]: Elieser Ballesteros MD Acct: [id number] Unit: [id number] AGE: 77 Location: ENDO Re08/22/17 SEX: F Status: REG REF SPEC: [id number] MARISEL: 08/22/17-[address] [facility] [address]: Elieser Ballesteros MD REQ: [id number] RECD: 08/22/17 STATUS: SUZETTE CALL DR: Colt Garcia MD _ SOURCE: NO SOURCE SPDESC: ORDERED: Clotest Procedure Result Reported Site Clotest Final 08/23/17900 ML Clotest Negative * ML - [facility] ([facility]) . END OF REPORT * ML=Testing performed at Main Lab DEPARTMENT OF PATHOLOGY, [address] [place] [address] Junior Mckenzie M.D. Director [facility] # [id number] 11 A negative result does not exclude the diagnosis of autoimmune myasthenia gravis. 12 ADDITIONAL INFORMATION This test was developed and its performance characteristics determined by [facility] in a manner consistent with CLIA requirements. This test has not been cleared or approved by the U.S. Food and Drug Administration. 13 REFERENCE VALUE 0-20% (reported as _% loss of AChR) ADDITIONAL INFORMATION This test was developed and its performance characteristics determined by [facility] in a manner consistent with CLIA requirements. This test has not been cleared or approved by the U.S. Food and Drug Administration. 14 ADDITIONAL INFORMATION This test was developed and its performance characteristics determined by [facility] in a manner consistent with CLIA requirements. This test has not been cleared or approved by the U.S. Food and Drug Administration. Test Performed by: [facility] [address] [place] [address] 15 Copy Result to: AFSHAN ARNOLD ([id number]) 16 Copy Result to: AFSHAN ARNOLD ([id number]) 17 Test Performed by: [facility] [address] [place] [address] 18 Because ethnic data is not always readily [...] 15-29 5 Kidney failure <15 (or dialysis) 19 Core Filer: [id number] 20 Normal Range 180 to 914 Indeterminate Range 145 to 180 Deficient Range <145 21 Because ethnic data is not always readily [...] 15-29 5 Kidney failure <15 (or dialysis) 22 Nonsmokers: < 2.9 ng/mL Some smokers may have elevated CEA, usually <5.0 ng/mL. Serum markers are not specific for malignancy, and values may vary by method. The testing method is an immunoenzymatic assay transplant surgeon by [employer] performed on Azael [employer] DXI 600. Do not interpret serum CEA levels as absolute evidence of the presence or the absence of malignant disease. Use serum CEA in conjunction with information from the clinical evaluation of the patient and other diagnostic procedures. 23 SEE RESULT BELOW Name: DIDIERMADHUPitoKIANNA Jackson : [address]: Elieser Ballesteros MD Acct: [id number] Unit: [id number] AGE: 77 Location: ENDO Re02/14/17 SEX: F Status: REG REF SPEC: [id number] MARISEL: 02/14/17-[address] [facility] [address]: Elieser Ballesteros MD REQ: [id number] RECD: 02/14/17 STATUS: YA CALL DR: Colt [...] performed at Main Lab DEPARTMENT OF PATHOLOGY, [address] [place] [address] Junior Mckenzie M.D. Director [facility] # [id number] RUN DATE: 02/15/17 [facility] LAB LIVE PAGE 2 Patient: KIANNA ASKEW Jackson [id number] (Continued) GROSS DESCRIPTION (Continued) GROSS DESCRIPTION 1. [...] performed at Main Lab DEPARTMENT OF PATHOLOGY, [address] [place] [address] Junior Mckenzie M.D. Director [facility] # [id number] 24 Nonsmokers: < 2.9 ng/mL Some smokers may have elevated CEA, usually <5.0 ng/mL. Serum markers are not specific for malignancy, and values may vary by method. The testing method is an immunoenzymatic assay transplant surgeon by [employer] performed on Azael [place] DXI 600. Do not interpret serum CEA levels as absolute evidence of the presence or the absence of malignant disease. Use serum CEA in conjunction with information from the clinical evaluation of the patient and other diagnostic procedures. 25 Normal Range 180 to 914 Indeterminate Range 145 to 180 Deficient Range <145 26 Because ethnic data is not always readily [...] 15-29 5 Kidney failure <15 (or dialysis) 27 SEE RESULT BELOW Name: KIANNA ASKEW : [address]: Roosevelt Reyes NP Acct: [id number] Unit: [id number] AGE: 76 Location: [facility] Re05/02/16 SEX: F Status: REG REF SPEC: [id number] MARISEL: 05/02/16-[address] [facility] [address]: Roosevelt Reyes NP REQ: [id number] RECD: 05/02/16 STATUS: COMP _ SOURCE: VAGINAL [...] or failure. * ML - MAIN LAB ([facility]) . END OF REPORT * ML=Testing performed at Main Lab DEPARTMENT OF PATHOLOGY, [address] [place] [address] Junior Mckenzie M.D. Director [facility] # [id number] 28 SEE RESULT BELOW Name: KIANNA ASKEW : [address]: Roosevelt Reyes NP Acct: [id number] Unit: [id number] AGE: 76 Location: [facility] Re05/02/16 SEX: F Status: REG REF SPEC: [id number] MARISEL: 05/02/16-[address] [facility] [address]: Roosevelt Reyes FORM MAKER PLASTER REQ: [id number] RECD: 05/02/16 STATUS: SOUT _ ORDERED: IMAGE ANALYSIS, HPV/Thin Prep, HPV 16/18 GENE COMMENTS: [id number] FINAL DIAGNOSIS Negative for Intraepithelial lesion or [...] 66, and 68. Signed (signature on file) PAMELLA Patel([facility]) 05/03 1511 This Pap test was evaluated with the assistance of the Pandora Mediap Test Imaging System. Due to cytologic findings at the java spring developer microscope, comprehensive manual rescreening by a Stainless Steel Finisher may be required. The Pap Smear is [...] performed at Main Lab DEPARTMENT OF PATHOLOGY, [address] [place] [address] RUN DATE: 05/03/16 [facility] LAB LIVE PAGE 1 Patient: KIANNA ASKEW [id number] (Continued) Junior Mckenzie M.D. Director [facility] # [id number] 29 [id number] HPV Source?: Thin Prep Trichomonas Source: Thin Prep 30 The high-risk HPV types detected by the assay include: 16, 18, 31, 33, 35, 39, 45, 51, 52, 56, 58, 59, 66, and 68. 31 [id number] 32 SEE RESULT BELOW Name: KIANNA ASKEW DOB: [address]: Jocy Valle MD Acct: [id number] Unit: [id number] AGE: 76 Location: [facility] Re04/12/16 SEX: F Status: DEP ER SPEC: [id number] MARISEL: 04/12/16-[address] [facility] [address]: Jocy Valle MD REQ: [id number] RECD: 04/12/16 STATUS: SUZETTE CALL DR: Colt Ballesteros MD _ SOURCE: URINE SPDESC: ORDERED: Urine Culture COMMENTS: [id number] Procedure Result Reported Site Urine Culture Final 04/13/16- 1612 ML No Growth (<1,000 CFU/mL) * ML - MAIN LAB ([facility]) . END OF REPORT * ML=Testing performed at Main Lab DEPARTMENT OF PATHOLOGY, [address] [place] [address] Junior Mckenzie M.D. Director [facility] # [id number] 34 Nonsmokers: < 2.9 ng/mL Some smokers may have elevated CEA, usually <5.0 ng/mL. Serum markers are not specific for malignancy, and values may vary by method. The testing method is an immunoenzymatic assay transplant surgeon by [employer] performed on [employer] DXI 600. Do not interpret serum CEA levels as absolute evidence of the presence or the absence of malignant disease. Use serum CEA in conjunction with information from the clinical evaluation of the patient and other diagnostic procedures. 35 Because ethnic data is not always readily [...] 15-29 5 Kidney failure <15 (or dialysis) 36 [id number] 37 SEE RESULT BELOW Name: KIANNA ASKEW Jackson : [address]: Elieser Ballesteros MD Acct: [id number] Unit: [id number] AGE: 76 Location: [facility] Re03/23/16 SEX: F Status: REG REF SPEC: [id number] MARISEL: 03/23/16-[address]: Elieser Ballesteros MD REQ: [id number] RECD: 03/23/16-161 STATUS: YA CALL DR: Colt Beaulieu MD _ ORDERED: LEVEL IV/4, CD56 Immunostai, SYNA-ADD, CGS-ADD COMMENTS: [id number] Immunohistochemical staining, with appropriately reacting controls, was [...] performed at Main Lab DEPARTMENT OF PATHOLOGY, [address] [place] [address] Junior Mckenzie M.D. Director [facility] # [id number] RUN DATE: 03/29/16 [facility] LAB LIVE PAGE 2 Patient: DIDIERLIZZETHKIANNA R [id number] (Continued) CLINICAL HISTORY (Continued) CLINICAL HISTORY Diet [...] performed at Main Lab DEPARTMENT OF PATHOLOGY, [address] [place] [address] Junior Mckenzie M.D. Director [facility] # [id number] 38 Because ethnic data is not always readily [...] 15-29 5 Kidney failure <15 (or dialysis) 39 Serologic response to B. burgdorferi infection is not detected, but cannot rule out early infection during which low or undetectable antibody levels to B. burgdorferi may be present. If clinically indicated, a new serum specimen should be submitted in 7-14 days. Test Performed by: [facility] - [address] [address] Sergeant Missile Crewman: Jim Monahan II, M.D., Ph.D. 40 RUN DATE: 01/08/15 [facility] LAB LIVE PAGE 1 RUN TIME: 1033 [address] [place], [place] [address] Specimen Inquiry Name: KIANNA ASKEW : [address]: Roosevelt Reyes NP Acct: [id number] Unit: [id number] AGE: 74 Location: [facility] Re01/06/15 SEX: F Status: REG REF SPEC: [id number] MARISEL: 01/06/151141 SUBM DR: Roosevelt Reyes FORM MAKER PLASTER REQ: [id number] RECD: 01/06/151305 STATUS: COMP _ SOURCE: URINE SPDESC: ORDERED: Urine Culture QUERIES: Provider Requisition # [id number] Procedure Result Verified Site Urine Culture Final 01/08/15- 1032 ML Organism 1 NORMAL THOMPSON [place] Count 10-25,000 (Moderate) CFU/ML * ML - [facility] ([facility]) . END OF REPORT * ML=Testing performed at Main Lab DEPARTMENT OF PATHOLOGY, [address] [place] [address] Junior Mckenzie M.D. Director [facility] # [id number] 41 -- REFERENCE VALUE -- 25-HYDROXY D TOTAL (D2+D3) Optimum levels in the healthy population are 20-50, patients with bone disease may benefit from higher levels within this range. Test Performed by: [place] [address] Sergeant Missile Crewman: Maximo Palafox III, M.D. 42 Acute inflammation: >10.00 43 Test Performed by: [address] [address] Sergeant Missile Crewman: Maximo Palafox III, M.D. 44 Because ethnic data is not always readily [...] 15-29 5 Kidney failure <15 (or dialysis) 45 No bands detected 46 Specific serologic response to B. burgdorferi infection [...] screening test (e.g., EIA). Test Performed by: [place] [address] Sergeant Missile Crewman: Maximo Palafox III, M.D. 47 Test Performed by: [place] [address] Sergeant Missile Crewman: Maximo Palafox III, M.D. 48 Consistent with previous results. 49 No apparent monoclonal protein on serum electrophoresis. Test Performed by: [place] [address] Sergeant Missile Crewman: Maximo Palafox III, M.D. 50 Serologic response to B. burgdorferi infection is not detected, but cannot rule out early infection during which low or undetectable antibody levels to B. burgdorferi may be present. If clinically indicated, a new serum specimen should be submitted in 7-14 days. Test Performed by: [facility] [address] [place] [address] Sergeant Missile Crewman: Maximo Palafox III, M.D. 51 Because ethnic data is not always readily [...] 15-29 5 Kidney failure <15 (or dialysis) 52 -- REFERENCE VALUE -- 25-HYDROXY D TOTAL (D2+D3) Optimum levels in the normal population are 25-80 Test Performed by: [address] [address] Sergeant Missile Crewman: Maximo Palafox III, M.D. 53 Because ethnic data is not always readily [...] 15-29 5 Kidney failure <15 (or dialysis) 54 FASTING 55 CHOLESTEROL INTERPRETATION: Desirable: Less than 200 MG/DL Borderline-High Risk: 200-239 MG/DL High-Risk: 240 MG/DL and over 56 HDL INTERPRETATION: Undesirable: High Risk: Less than 40 MG/DL Desirable: Low Risk: Greater than 60 MG/DL 57 LDL INTERPRETATION: Low Risk Optimal Level: LDL Less than 100 MG/DL Near or Above Optimal: LDL 100-129 MG/DL Borderline High Risk: LDL 130-159 MG/DL High Risk: LDL 160-189 MG/DL Very High Risk: LDL Greater than 189 MG/DL 58 Anion gap measurement may be of limited value in the presence of any alkalosis, especially in a combined acid base disorder. . 59 Because ethnic data is not always readily [...] 15-29 5 Kidney failure <15 (or dialysis) 60 ---- RUN DATE: 02/18/11 [facility] RUN TIME: 1346 Specimen Inquiry RUN USER: INTERFACE -- [id number] Status: REG REF Re02/16/11 Age/Sex: 71/F Unit#: [id number] Location: [address] [place] [address]. : [birth year] -- Specimen: [id number] Spec Date: 02/16/[address]: Elieser ahumada MD Spec Type: SURGICAL P Received: 02/17/11-1874 Copies to: Colt arias MD SPECIMEN 1) DESCENDING COLON POLYP 2) SIGMOID COLON POLYP BIOPSY HISTORY POST-OP DIAGNOSIS: Colon polyps (2) CLINICAL INFORMATION: Follow-up for colon polyps; patient states had a l ittle blood x2 seven days ago; denies colon cancer in her family GROSS DESCRIPTION 1) The specimen is received in formalin labelled Kianna Askew, Descending Colon Polyp, and consists of multiple alfredo, soft tissue fragments measuring 0.3 x 0.2 x 0.1 cm. Submitted entirely, one cassette. 2) The specimen is received in formalin labelled Kianna PazHarris Jamilah, Sigmoid Colon Polyp Biopsy, and consists of multiple alfredo to brown-red, soft tissue fragments measuring 0.8 x 0.3 x 0.2 cm. Submitted entirely, one cassette. DIAGNOSIS 1) Colon, descending, biopsy: A. Tubular adenoma. B. No high grade dysplasia or malignancy. 2) Colon, sigmoid polyp, biopsy: Hyperplastic polyp. Signed Electronically by: JUNIOR MCKENZIE MD 02/18/11 1345 -- -- DEPARTMENT OF PATHOLOGY, [address] [place] [address] [facility] Permit #[id number] Junior Mckenzie M.D. Director Cristina Orlando M.D. Staff Counsel Dir stoney -- 61 -- REFERENCE VALUE -- 25-HYDROXY D TOTAL (D2+D3) Optimum levels in the normal population are 25-80 Test Performed by: [facility] Dpt of Lab Med and Pathology [address] [place] [address] Sergeant Missile Crewman: Maximo Palafox III, M.D. 62 Anion gap measurement may be of limited value in the presence of any alkalosis, especially in a combined acid base disorder. . 63 Note change in reference range as of 05/15/08. The change was based on recommendations from the [place] [employer]. 64 Please note change in reference range effective 08 . 65 Because ethnic data is not always readily [...] 15-29 5 Kidney failure <15 (or dialysis) 66 CHOLESTEROL INTERPRETATION: Desirable: Less than 200 MG/DL Borderline-High Risk: 200-239 MG/DL High-Risk: 240 MG/DL and over 67 HDL INTERPRETATION: Undesirable: High Risk: Less than 40 MG/DL Desirable: Low Risk: Greater than 60 MG/DL 68 LDL INTERPRETATION: Low Risk Optimal Level: LDL Less than 100 MG/DL Near or Above Optimal: LDL 100-129 MG/DL Borderline High Risk: LDL 130-159 MG/DL High Risk: LDL 160-189 MG/DL Very High Risk: LDL Greater than 189 MG/DL 69 Anion gap measurement may be of limited value in the presence of any alkalosis, especially in a combined acid base disorder. . 70 Note change in reference range as of 05/15/08. The change was based on recommendations from the [place] [employer]. 71 Please note change in [...] 5 Kidney failure <15 (or dialysis) 73 -- REFERENCE VALUE -- 25-HYDROXY D TOTAL (D2+D3) Optimum levels in the normal population are 25-80 Test Performed by: [facility] Dpt of Lab Med and Pathology [address] [id number] Sergeant Missile Crewman: Maximo Palafox III, M.D. 74 Anion gap measurement may be of limited value in the presence of any alkalosis, especially in a combined acid base disorder. . 75 Please note change in reference range effective 08 . 76 -- REFERENCE VALUE -- 25-HYDROXY D TOTAL (D2+D3) Optimum levels in the normal population are 25-80 Test Performed by: [facility] Dpt of Lab Med and Pathology [address] [place] [address] Sergeant Missile Crewman: Maximo Palafox III, M.D. 77 PLEASE NOTE CHANGE IN REFERENCE RANGE OF 10/02/06. 78 Classification: Borderline High . 79 Classification: High . 80 CALCULATED LDL APPROXIMATES THE VALUE OF A DIRECT LDL MEASUREMENT. Classification: Near or above optimal . 81 Anion gap measurement may be of limited value in the presence of any alkalosis, especially in a combined acid base disorder. . Procedures Date Code Description Status 11/20/2018 41984 EKG Tracing & Interpretation Completed 08/27/2018 [id number] Mammogram Completed 06/13/2018 72331 Colonoscopy Flexible Remove Tumor/Polyp/Lesion Snare Completed Technique 06/13/2018 44296 Colonoscopy,W/Directed Submucosal Injections, Any Completed Substance 06/13/2018 [id number] Colonoscopy Completed 08/22/2017 [id number] Colonoscopy Completed 08/10/2017 91326 ECHO Transthoracic, Real-Time 2D With Doppler And Completed Color Flow 08/10/2017 97776 ECHO Transthoracic, Real-Time 2D With Doppler And Completed Color Flow 05/24/2017 58539 EKG, Interpretation Only Completed 04/04/2017 [id number] Bone Mineral Density Test Completed 02/14/2017 [id number] Colonoscopy Completed 08/22/2016 [id number] Mammogram Completed 04/08/2016 04429 EKG, Interpretation Only Completed 03/23/2016 [id number] Colonoscopy Completed 08/17/2015 [id number] Bone Mineral Density Test Completed 08/10/2015 [id number] Mammogram Completed 08/15/2014 [id number] Mammogram Completed 06/21/2013 [id number] Mammogram Completed 11/01/2012 65714 EKG Tracing & Interpretation Completed 06/09/2011 [id number] Mammogram Completed 02/16/2011 [id number] Colonoscopy Completed 07/13/2009 [id number] Mammogram Completed 07/03/2008 [id number] Mammogram Completed 08/16/2006 18602 Stress Test Completed 08/16/2006 06740 ECHO/Stress Completed 08/16/2006 37527 ECHO/Stress Completed 08/02/2006 01111 Echocardiogram Completed 08/02/2006 51930 Pulse Doppler & Continuous Wave Completed 08/02/2006 75180 Pulse Doppler & Continuous Wave Completed 08/02/2006 28268 Color Doppler Completed 01/23/2006 [id number] Colonoscopy Completed Encounters Type Date Location Provider Dx Diagnosis Office Visit 11/09/2018 [facility] Internal Natalie Mercado, I10 Essential (primary ) 11:40a Medicine - N.P. hypertension [place] Office Visit 10/10/2018 [facility] Internal Anastacia Heredia, S61.552A Open bite of left 10:00a Medicine - [place] BAND LEADER wrist, initial Rd encounter W55.01xA Bitten by cat, initial encounter K21.0 Gastro-esophageal reflux disease with esophagitis M47.26 Other spondylosis with radiculopathy, lumbar region M85.89 Oth disrd of bone density and structure, multiple sites I10 Essential (primary) hypertension S61.551A Open bite of right wrist, initial encounter Office Visit 07/25/2018 3:20p [facility] Internal Anastacia Heredia, M54.41 Lumbago with Medicine - [place] [employer] sciatica, right Rd side K21.0 Gastro-esophageal reflux disease with esophagitis Office Visit 07/18/2018 9:20a [facility] Internal Anastacia Heredia M54.41 Lumbago with Medicine - [place] [employer] sciatica, right Rd side M41.9 Scoliosis, unspecified K21.0 Gastro-esophageal reflux disease with esophagitis R63.4 Abnormal weight loss Office Visit 06/18/2018 [facility] Gastroenterology Elieser Grissom Z86.010 Personal 2:00p MD Favian history of [...] stenosis, lumbosacral region Office Visit 11/03/2017 2:00p [facility] Internal Medicine Anastacia Heredia, [employer] R30.0 Dysuria - [place] [address] K44.9 Diaphragmatic hernia without obstruction or gangrene N39.0 Urinary tract infection, site not specified Office Visit 09/26/2017 11:10a [facility] Internal Colt Mcdermott 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.,FACP heterophoria [place] I10 Essential (primary) hypertension K44.9 Diaphragmatic hernia without obstruction or gangrene G60.8 Other hereditary and idiopathic neuropathies Office Visit 08/28/2017 1:40p [facility] Janiya Mcdermott R63.4 Abnormal weight Cherelle Beaulieu M.D.,FACP loss Rd I10 Essential (primary) hypertension 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, right eye Office Visit 07/27/2017 3:40p [facility] Janiya Mcdermott R63.4 Abnormal weight Cherelle Beaulieu M.D.,FACP loss Rd R42 Dizziness and giddiness I10 Essential (primary) hypertension H53.2 Diplopia Office Visit 03/21/2017 3:00p [facility] Janiya Mcdermott Z00.01 Encounter for Cherelle Beaulieu M.D.,FACP general adult [place] medical exam w abnormal findings I10 Essential (primary) hypertension M81.0 Age-related osteoporosis w/o current pathological fracture C18.9 Malignant neoplasm of colon, unspecified E04.1 Nontoxic single thyroid nodule Office Visit 03/08/2017 10:50a [facility] Janiya Mcdermott J01.00 Acute maxillary Cherelle Beaulieu M.D.,FACP sinusitis, Rd unspecified Office Visit 01/25/2017 8:30a Orthopedic Dirk Dorota, M41.26 Other idiopathic Services Of [facility] scoliosis, lumbar C.M.A. region M47.26 Other spondylosis with radiculopathy, lumbar region M51.36 Other intervertebral disc degeneration, lumbar region Office Visit 01/06/2017 10:40a [facility] Internal Colt Mcdermott M25.551 Pain in right Cherelle Beaulieu M.D.,FACP hip [place] [address] Office Visit 11/15/2016 9:50a [facility] Internal Colt Mcdermott S33.5xxD Sprain of Cherelle Beaulieu M.D.,FACP ligaments of [place] lumbar spine, subsequent encounter M25.551 Pain in right hip Office Visit 11/10/2016 8:30a [facility] Internal Denise S33.5xxA Sprain of Cherelle Stern M.D. ligaments of [place] lumbar spine, initial encounter Office Visit 10/11/2016 1:40p [facility] Internal Colt Mcdermott M54.2 Cervicalgia Iggy Garcia M.D.,FACP S20.211A Contusion of right front wall of thorax, initial encounter Office Visit 09/06/2016 [facility] Internal Raymundo Gillis Z01.810 Encounter for 2:00p Cherelle Weber M.D. preprocedural [place] cardiovascular examination H26.9 Unspecified cataract I10 Essential (primary) hypertension C18.9 Malignant neoplasm of colon, unspecified Office Visit 07/18/2016 10:40a [facility] Internal Roosevelt Reyes, W19.xxxA Unspecified fall, Medicine - [employer] initial encounter [address] S23.8xxA Sprain of other specified parts of thorax, initial encounter Office Visit 05/02/2016 2:00p [facility] Internal Roosevelt Reyes, N76.0 Acute vaginitis Medicine - [place] [employer] Rd Z12.4 Encounter for screening for malignant neoplasm of cervix Office Visit 04/25/2016 1:20p [facility] Internal Roosevelt Reyes, C18.9 Malignant neoplasm Medicine - [place] [employer] of colon, Rd unspecified I10 Essential (primary) hypertension K62.5 Hemorrhage of anus and rectum R19.5 Other fecal abnormalities Office Visit 03/03/2016 3:20p [facility] Internal [place] Reyes NP R53.83 Other fatigue Medicine - [address] [address] M54.5 Low back pain M15.9 Polyosteoarthritis, unspecified Office Visit 02/18/2016 1:00p [facility] Internal Roosevelt Algerian, [employer] R53.83 Other fatigue Medicine - [place] [address] M15.9 Polyosteoarthritis, unspecified R21 Rash and other nonspecific skin eruption Office Visit 08/28/2015 10:00a [facility] Internal Roosevelt Reyes, J01.90 Acute sinusitis, Medicine - [employer] unspecified [address] Office Visit 01/06/2015 11:00a [facility] Internal Roosevelt Reyes, 788.1 Dysuria Medicine - [employer] [address] 616.10 Vaginitis & Vulvovaginitis Unspec Office Visit 07/15/2014 9:00a [facility] Internal Mihir Roberts, 923.3 Contusion Finger Medicine - [employer] [place] 959.5 Injury Finger Other & Unspec Office Visit 05/29/2014 10:30a [facility] Internal Mihir Roberts, 919.4 Injury Superficial Medicine - [employer] Insect Bite Oth [place] Mult Unsp Nonv W/O Infect 336.8 Myelopathy Other E906.4 Bite Nonvenomous Arthropod Office Visit 06/25/2013 10:50a [facility] Internal Colt Beaulieu, 724.3 Sciatica Cherelle Parkinson M.D.,FACP 281.1 Vitamin B12 Deficiency Anemia Other v04.81 Need For Prophylactic Vaccination & Inoculation/Influenza Office Visit 05/10/2013 4:00p [facility] Internal Colt Beaulieu, 724.3 Sciatica Cherelle Parkinson M.D.,FACP 780.79 Malaise And Fatigue Other Office Visit 02/27/2012 9:45a [facility] Internal Denise 691.8 Dermatitis Atopic Cherelle Stern M.D. & Related [place] Conditions Other Office Visit 01/12/2012 2:15p [facility] Internal Denise v06.1 Diphtheria- Tetanu Cherelle Stern M.D. 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 Office Visit 07/15/2008 2:40p DO Not Use [employer] Colt Mcdemrott 717.49 Derangement AT Karime Beaulieu M.D.,FACP Lateral Meniscus Other Office Visit 04/15/2008 9:00a DO Not Use [employer] Colt Mcdermott 401.1 Hypertension AT Karime Beaulieu M.D.,FACP Benign 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 Office Visit 10/18/2007 8:40a DO Not Use [employer] Colt Mcdermott 733.90 Bone & Cartilage AT Karime Beaulieu M.D.,FACP Disorder Unspec 401.1 Hypertension Benign 473.9 Sinusitis Chronic Unspec Plan of Treatment Future Appointment(s):11/23/2018 3:00 pm - Colt Beaulieu M.D.,FACP at [facility] Internal Medicine - [address]/20/2018 - Natalie Mercado, N.P.I10 Essential ( primary) hypertensionNew Medication:Felodipine ER 5 mg - one po dailyNew Labs: Comp Metabolic Panel, Ordered: 11/20/18TSH (Thyroid Stim Horm), Ordered: Lipid Profile (Trig/Chol/HDL), Ordered: 11/20/18Comments:Your blood pressure is definitely too high. I want to increase your Felodipine to 5 mg.Continue to monitor your blood pressure at home.I am ordering blood work to check your chemistries and cholesterollevels. I will contact you with your results. Keep your appointment with Dr Beaulieu this Monday.
--- OUTSIDE RECORDS SUMMARY | 2018-11-28 20:52 | XMS REPORT | Continuity of Care Document ---
:1940 External Reference #:[id number] Author Name Cynthia Veliz Care Team Providers Name Role Phone Colt Beaulieu MD Primary Care Physician Unavailable Payers Date Identification Numbers Payment Provider Subscriber Policy Number: [id number] Medicare Kianna Salase PayID: [id number] [address] [place] [address] Policy Number: [id number] [facility] Kianna Salase PayID: [id number] [address] [place] [address] Effective: 2006 Policy Number: [id number] Medicare Kianna Askew Expires: 2018 PayID: [id number] [address] [place] [address] Effective: 2016 Policy Number: [id number] [facility] Kianna Farrisgie Ins Onset: 2016 Group Number: [id number] PayID: [id number] JUAN JOSE Barnes [id number] Expires: 2018 Policy Number: [id number] [place] [employer] Kianna Farrisgie [employer] Group Number: [id number] [address] PayID: [id number] [place] [address] PayID: [id number] Medicare D - Drug Plan Kianna Salase Advance Directives Type Date Description Status Comment [...] Comments : (age 52 Father due to [place] Years) Father due to Heart () - in 40s, Disease ?RF : (age 84 Mother due to [place] Years) Siblings 1 First Brother Hypertension First Brother Leukemia ALL Social History Type Date Description Comments Sex Unknown Marital Status Significant Other Lives With Partner 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 Tobacco Use Start: Unknown Never Smoked Cigarettes ETOH Use 04/05/2018 Occasionally consumes alcohol Tobacco Use Start: Unknown Patient has never smoked Recreational Drug Use Denies Drug Use Smoking Status Reviewed: 11/09/18 Patient has never smoked Enjoy Exercising Enjoys exercising swims Exercise Type/Frequency Exercises regularly Allergies, Adverse Reactions, Alerts Description No Known Drug Allergies Medications Medication Date Status Form Strength Qnty SIG Indications Ordering Provider Omeprazole 05/30/ Active Capsules 20mg 90cap 1 by mouth Elieser Shaffer DR s every day MD Favian Vitamin D 00/ Active Tablets 1000Unit 1 by mouth Unknown 0000 everyday Fish Oil / Active Capsules 1200mg 1 by mouth Unknown 0000 daily Tylenol / Active Capsules 325mg 2 tablets Unknown 0000 every 4 hours as needed for pain Myrbetriq 00/ Active Tablets 50mg 1 by mouth Unknown 0000 ER 24HR every day (rx'd by Dr. Mina) Ibuprofen 00/ Active Tablets 200mg as needed, Unknown 0000 alternting with tylenol Cyclobenzaprine 07/18/ Hx Tablets 5mg 14tab take one M54.41 Zsofia HCL 2018 - s tablet by Yan, 10/10/ mouth 3x DATA ANALYST ETL DEVELOPER 2019 daily as needed for back pain Aspercreme 07/18/ Hx Patches 4% 10uni 1 path M54.41 Zsofia Lidocaine 2018 - ts daily for Yan, 11/09/ back pain DATA ANALYST ETL DEVELOPER 2019 G89.4 Suprep 05/02/2018 - Hx Solution 17.5-3.13-1.6GM/180ML 1units Take as Elieser Grissom Bowel Prep 11/09/2018 directed Андрей Ballesteros the day MD before procedure Tramadol 04/05/2018 - Hx Tablets 50mg 30tabs Take 1 tab M5 Zsofia HCL 10/10/2018 po qday, do 4. Yan, not drive 41 DATA ANALYST ETL DEVELOPER when taking this medication. M47.26 Ciprofloxacin HCL 11/03/2017 - Hx Tablets 250mg 10tabs take 1 tab R30.0 Zsofia 02/28/2018 by mouth Yan, twice a day DATA ANALYST ETL DEVELOPER for 5 days Omeprazole 08/28/2017 - Hx Capsules 20mg 90caps 1 by mouth R63.4 Carmen Avelar 02/28/2018 every day Sharron Beaulieu, for 2 wks Kerri,FACP then prn Felodipine ER 08/28/2017 - Hx Tablets ER 2.5mg 90tabs Take One I10 Zsofia 04/05/2018 24HR Tablet By Yan, Mouth Every DATA ANALYST ETL DEVELOPER Day Lisinopril 07/21/2017 - Hx Tablets 5mg 90tabs 1 by mouth I10 Colt 07/27/2017 every day Sharron Beaulieu M.D.,FACP Felodipine ER 03/21/2017 - Hx Tablets ER 2.5mg 90tabs 1 by mouth I10 Colt 07/21/2017 24HR every day Sharron Beaulieu M.D.,FACP Amoxicillin 03/08/2017 - Hx Tablets 500mg 40tabs 2 tabs by Colt 03/18/2017 mouth twice Sharron Beaulieu, a day for Kerri,FACP 10 days Lumbo Sacral 01/25/2017 - Hx M41.26 Jabari Roberts, 10-12 02/28/2018 Mateus Raya With Kerri Some Support Cyclobenzaprine 11/10/2016 - Hx Tablets 5mg 10tabs take one S33.5xx Denise HCL 01/06/2017 tablet by Selena Stern, mouth at M.D. 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 Triamcinolone 05/02/2016 - Hx Cream 0.1% 30gm apply thin N76.0 Roosevelt Acetonide 05/16/2016 layer Iraqi, topically HYDRO MECHANIC twice a day to affected area [id number] Tylenol Extra 03/03/2016 - Hx Tablets 500mg 1 tab po M54.41 Roosevelt Strength 05/02/2016 qid every Iraqi, 4-6 hours HYDRO MECHANIC prn pain Amoxicillin/Clavul 08/28/2015 - Hx Tablets 875-125 20tabs 1 tablet by J01.90 Roosevelt anate Potassium 09/07/2015 mg mouth twice Iraqi, a day x's HYDRO MECHANIC 10 days Fluconazole 01/06/2015 - Hx Tablets 150mg 2tabs 1 tablet by 616.10 Roosevelt 01/13/2015 mouth daily Iraqi, today, then HYDRO MECHANIC repeat in 1 week. Doxycycline 03/08/2013 - Hx Tablets 100mg 4tabs 2 tabs po Colt Hyeldaate 05/10/2013 x1 then prn Sharron Beaulieu M.D.,[facility] Felodipine ER 11/02/2010 - Hx Tablets ER 5mg 90tabs Take One I10 Carmen Avelar 03/21/2017 24HR Tablet By Sharron Beaulieu, Mouth Every M.D.,FACP Morning Fish Oil 05/21/2010 - Hx Capsules 1000mg 60caps 1 po qd Colt 05/29/2014 Shar[facility] M.D.,[facility] Vitamin B12 05/21/2010 - Hx Tablets ER 1000mcg 90tabs po qd Colt 02/27/2012 Sharron Beauliue M.D.,[facility] Vitamin D 10/30/2007 - Hx Capsules 400Unit qd PO Colt 11/01/2012 Sharron Beaulieu M.D.,[facility] Felodipine ER 10/18/2007 - Hx Tablets ER 5mg 90tabs 1 PO qd Colt 11/02/2010 24HR Sharron Beaulieu M.D.,[facility] Calcium 600-D 10/18/2007 - Hx Tablets 600/200 180tabs PO bid Colt 11/01/2012 Sharron Beaulieu M.D.,[facility] Calcium 1200 + D - Hx Chewtabs [...] Code Status Date Vaccine Reaction Lot # [id number] Given 04/05/2018 Tetanus And Diptheria (Td) [id number] For Adult Use Preservative Free 73024 Given 08/03/2017 Influenza Virus Vaccine, Quadrivalent, Split, Preservative Free 82860 Given 08/14/2016 Influ Virus Vaccine, Quadrivalent, Split Virus, [place] [address] Given 07/16/2015 Influenza Virus Vaccine, no reaction noted. Pt [id number] Quadrivalent, Split, consented to flu Preservative Free injection and NYSIIS. 07855 Given 07/16/2015 Pneumococcal Conjugate No reaction noted [id number] Vaccine 13 Valent For Intramuscular Use 87641 Given 06/25/2013 Flu Vaccine Split Virus [id number] Preservative Free For Indiv 3Yr Older 85460 Given 07/04/2012 Influenza Virus 3Yrs & Over 68963 Given 01/12/2012 Tdap - [id number] Tetanus/Diptheria/Acellular Pertussis Q2038 Given 06/13/2011 Fluzone Vaccine [id number] 88530 Given 06/03/2008 Zoster (Zostavax) 83400 Given 07/15/2003 Pneumonia Vaccine 84043 Given 07/15/2003 Pneumonia Vaccine Vital Signs Date Vital Result Comment 11/09/2018 11:43am Height 63.5 inches 5'3.50" Weight [...] Date Facility Test Result H/L Range Note BUN/Creat/GFR 07/06/2018 [facility] Poc Blood Urea 21 mg/dL N 8-[address] [place] [address] [phone] Poc Creatinine 1.0 mg/dL N 0.6-1.3 1 Poc BUN/Creatinine Ratio 21.0 High 8-20 Egfr Non- 53.8 >60 Egfr 65.1 >60 2 Laboratory test 06/13/2018 [facility] Surgical Pathology SEE 3, [address] [place] [address] BELOW [phone] Laboratory test 01/15/2018 [facility] Carcinoembryonic 2.8 ng/ mL N 0.[address] Antigen Cea -5. [place] [address] 0 [phone] Urine Culture And 11/03/2017 [facility] Urine Culture SEE 6 , [address] [place] [address] BELOW [phone] Ua Routine 11/03/2017 Bar Host/Hostess In House Ua Specific North 1.015 Ua PH 5 Ua Color dark yellow Ua Appera cloudy Ua WBC ++ Ua Protein +30 Ua Glucose normal Ua Ketones neg Ua Bilirubin neg Ua Urobilinogen normal Ua Nitrite neg Ua Occult Blood large Laboratory 10/10/2017 [facility] Carcinoembryonic 2.5 ng/mL N 0.1-5.0 8 test finding [address] [place] [address] [phone] Laboratory 10/10/2017 [facility] Magnesium 2.1 mg/dL N 1.9- 2.7 test finding [address] [place] [address] [phone] Laboratory 08/22/2017 [facility] Surgical Pathology SEE RESULT 9 test finding [address] [place] [address] [phone] Laboratory 08/22/2017 [facility] Clotest SEE RESULT 10 test finding [address] BELOW [place], [place] [id number] [phone] Myasthenia 08/08/2017 [facility] MG Lambert-Eaton See 11 Gravis (), [address] Interpret Comment Adult [place], [place] [id number] [phone] Acetylcholine Receptor Binding 0.00 nmol/L <=0.02 12 Acetylcholine Recept Mod Ab 0 % 13 Anti-Striated Muscle Antibody Negative titer <1:120 14 Laboratory test finding 08/08/2017 [facility] Lipase 17 U/L N 11.0-82.[address] [place] [address] [phone] Glucose 99 mg/dL N 70-100 16 Insulin Level 7.7 mcIU/mL 2.6 - 24.9 17 Laboratory test 07/26/2017 [facility] Erythrocyte Sed 7 mm/Hr N 0-[address] [place] [address] [phone] Comp Metabolic 07/26/2017 [facility] Sodium 137 mmol/L N 133- [address] [place] [address] [phone] Potassium 4.5 mmol/L N 3.5-5.0 Chloride 99 [...] 78.3 N >60 18 Laboratory test 07/26/2017 [facility] T3 Total 1.07 ng/mL N 0.87-1.[address] [place] [address] [phone] TSH (Thyroid Stim Horm) 2.95 mcIU/mL N 0.34-5.60 CBC Auto Diff 07/26/2017 [facility] White Blood 4.9 10^3/uL N 3.5-10.[address] [place] [address] [phone] Red Blood Count 4.19 10^6/uL N 4.0-5.4 [...] Cells % 0.2 N Laboratory test 07/12/2017 [facility] Point of Care 75 mg/dL N 70-100 [address] [place] [address] [phone] CBC Auto Diff 06/14/2017 [facility] White Blood 5.7 10^3/uL N 3.5-10.[address] [place] [address] [phone] Red Blood Count 4.03 10^6/uL N 4.0-5.4 [...] Cells % 0.1 N Laboratory test 06/14/2017 [facility] TSH (Thyroid 1.33 mcIU/mL N 0.34-5.[address] Stim Horm) [place], [place] [id number] [phone] Vitamin B12 479 pg/mL N 180-914 20 Basic Metabolic Panel 05/23/2017 [facility] Sodium 137 mmol/L N 133-[address] [place] [address] [phone] Potassium 4.2 mmol/L N 3.5-5.0 Chloride 100 mmol/L Low 101-111 Co2 Carbon Dioxide 34 mmol/L High 22-32 Anion Gap 3 mmol/L N 2-11 Glucose 99 mg/dL N 70-100 Blood Urea Nitrogen 18 mg/dL N 6-24 Creatinine 0.75 mg/dL N 0.51-0.95 BUN/Creatinine Ratio 24.0 High 8-20 Calcium 9.1 mg/dL N 8.6-10.3 Egfr Non- 75.1 N >60 Egfr 96.6 N >60 21 Laboratory 05/23/2017 [facility] Carcinoembryonic 3.2 ng/mL N 0.1-5.0 22 test finding [address] Antigen Cea [place], [place] [address]99 [phone] Laboratory 02/14/2017 [facility] Surgical Pathology SEE 23 test finding [address] [place] [address] BELOW [phone] Laboratory 02/02/2017 [facility] Carcinoembryonic 3.2 ng/mL N 0.1-5.0 24 test finding [address] [place] [address] [phone] CBC Auto Diff 02/02/2017 [facility] White Blood Count 7.8 N 3.5-10.[address] 10^3/uL [place], [place] [address] [phone] Red Blood Count 4.39 10^6/uL N 4.0-5.4 [...] % 0 N CBC Auto Diff 01/13/2017 [facility] White Blood 5.8 10^3/uL N 3.5-10.[address] Count [place], [place] [address] [phone] Red Blood Count 4.34 10^6/uL N 4.0-5.4 [...] Cells % 0 N Laboratory test 01/13/2017 [facility] TSH (Thyroid 1.85 mcIU/mL N 0.34-5.[address] Stim [place]orm) [place] [address] [phone] Vitamin B12 455 pg/mL N 180-914 25 Basic Metabolic 01/13/2017 [facility] Sodium 132 mmol/L Low 133-[address] [place] [address] [phone] Potassium 4.7 mmol/L N 3.5-5.0 Chloride 95 mmol/L Low 101-111 Co2 Carbon Dioxide 32 mmol/L N 22-32 Anion Gap 5 mmol/L N 2-11 Glucose 92 mg/dL N 70-100 Blood Urea Nitrogen 16 mg/dL N 6-24 Creatinine 0.71 mg/dL N 0.51-0.95 BUN/Creatinine Ratio 22.5 High 8-20 Calcium 9.4 mg/dL N 8.6-10.3 Egfr Non- 80.3 N >60 Egfr 103.2 N >60 26 Laboratory test 05/02/2016 [facility] Cytology SEE RESULT BELOW [address] [place] [address] [phone] Trichomonas Vaginalis Rna Negative N Negative 28 HPV Rna Ww/Reflex Genotype Negative N Negative 29 Laboratory test 05/02/2016 [facility] Gardnerella/Yeast: SEE RESULT [address] [place] [address] [phone] CBC Auto Diff 04/25/2016 [facility] White Blood Count 5.5 N 3.5- [address] 10^3/uL 10.8 [place] [address] [phone] Red Blood Count 3.95 10^6/uL Low 4.0-5.4 [...] % 0 N CBC Auto Diff 04/25/2016 [facility] White Blood 8.4 10^3/uL N 3.5-10.[address] [place] [address] [phone] Red Blood Count 3.93 10^6/uL Low 4.0-5.4 [...] % 0 N Urine Culture And 04/12/2016 [facility] Urine SEE RESULT 31 , [address] [place] [address] [phone] CBC Auto Diff 03/23/2016 [facility] White Blood 5.0 10^3/uL N 3.5-[address] Count 0.8 [place] [address] [phone] Red Blood Count 4.23 10^6/uL N 4.0-5.4 [...] Blood Cells % 0.1 N Laboratory 03/23/2016 [facility] Carcinoembryonic 3.1 ng/mL N 0.1-5.0 34 test finding [address] [place] [address] [phone] Comp Metabolic 03/23/2016 [facility] Sodium 139 N 133-[address] mmol/[place] [address] [phone] Potassium 4.1 mmol/L N 3.5-5.0 Chloride 101 [...] 130.3 N >60 35 Laboratory test 03/23/2016 [facility] Surgical SEE RESULT 36, [address] [place] [address] [phone] Laboratory test 02/19/2016 [facility] TSH (Thyroid 1.51 ?IU/mL N 0.34- finding [address] Stim Horm) 5.60 [place] [address] [phone] CBC Auto Diff 02/19/2016 [facility] White Blood 4.7 10^3/uL N 3.5-[address] Count 0.8 [place] [address] [phone] Red Blood Count 4.21 10^6/uL N 4.0-5.4 [...] Nucleated Red Blood Cells % 0.9 N Laboratory test 02/19/2016 [facility] Lyme Disease Negative N Negative [address] [place] [address] [phone] Vitamin D Total 25(Oh) 33.9 ng/mL N 30-50 Basic Metabolic Panel 02/19/2016 [facility] Sodium 137 mmol/L N 133-[address] [place] [address] [phone] Potassium 4.7 mmol/L N 3.5-5.0 Chloride 101 mmol/L N 101-111 Co2 Carbon Dioxide 31 mmol/L N 22-32 Anion Gap 5 mmol/L N 2-11 Glucose 91 mg/dL N 70-100 Blood Urea Nitrogen 16 mg/dL N 6-24 Creatinine 0.74 mg/dL N 0.51-0.95 BUN/Creatinine Ratio 21.6 High 8-20 Calcium 8.9 mg/dL N 8.6-10.3 Egfr Non- 76.5 N >60 Egfr 98.4 N >60 39 Ua Routine 01/06/2015 Bar Host/[facility]ess In House Ua Specific North 1.010 Ua PH 7.0 Ua Color yellow Ua Appera clear Ua WBC neg Ua Protein trace Ua Glucose neg Ua Ketones trace Ua Bilirubin small Ua Urobilinogen neg Ua Nitrite neg Ua Occult Blood neg Urine Culture And 01/06/2015 [facility] Urine Culture (SEE NOTE ) [address] [place] [address] [phone] Urinalysis Profile 06/30/2014 [facility] Urine Color Yellow [place] [address] [place] [address] [phone] Urine Appearance Clear N Urine Specific North 1.012 N 1.010-1.030 Urine pH 7.0 N 5-9 Urine Urobilinogen Negative N Negative Urine Ketones Negative N Negative Urine Protein Negative N Negative Urine Leukocytes Negative N Negative Urine Blood Negative N Negative Urine Nitrite Negative N Negative Urine Bilirubin Negative N Negative Urine Glucose Negative N Negative Vitamin D, 25 05/29/2014 [facility] 25-Hydroxy Vitamin <4.0 ng/ mL N Hydroxy [address] [place] D[address] [place] [address] [phone] 25-Hydroxy Vitamin D3 36 ng/mL N 25-Hydroxy Vitamin D Total 36 ng/mL N 41 Laboratory test 05/29/2014 [facility] Erythrocyte Sed 8 mm/Hr N 0-[address] [place] [address] [phone] C Reactive Protein 1.74 mg/L N < 5.00 42 Rheumatoid Factor <15 IU/mL N <15 43 Shanice (Anti-Nuclear AB) Screen Negative N Negative Comp Metabolic Panel 05/29/2014 [facility] Sodium 134 mmol/L N 133-[address] [place] [address] [phone] Potassium 4.3 mmol/L N 3.7-5.6 Chloride 99 [...] 117.0 N >60 44 Lyme Western 05/29/2014 [facility] Lyme Disease Negative N Negative Blot [address] [place] [address] [phone] Lyme Disease IgG Bands Present p41, kDa N Lyme Disease IgM Ab WB Negative N Negative Lyme Disease IgM Bands Present No bands detecte <SEE NOTE> kDa N 45 Lyme Disease Interpretation See Comment N 46 Laboratory test 07/02/2013 [facility] Methylmalonic 0.19 <= 0.40 [address] Acid nmol/[place] [address] [phone] Vitamin B12 And 07/02/2013 [facility] Vitamin B12 416 pg/mL 180-914 Folate Serum [address] [place] [address] [phone] Folate 15.7 ng/mL 2-16 CBC Auto 06/17/2013 [facility] White Blood 4.7 10^3/uL Low 4.8 -10.[address] [place] [address] [phone] Red Blood Count 4.23 10^6/uL 4.0-5.4 Hemoglobin [...] Red Blood Cells % 0 Protein 06/17/2013 [facility] Total 7.2 g/dL 6.3 - Electrophoresis [address] Protein(Pep) 7.9 [place] [address] [phone] Albumin 3.8 g/dL 3.4-4.7 Alpha-1 Globulin 0.2 g/dL 0.1-0.3 Alpha-2 Globulin 1.0 g/dL 0.6-1.0 Beta Globulin 1.2 g/dL 0.7-1.2 Gamma Globulin 1.0 g/dL 0.6-1.6 Albumin/Globulin Ratio 1.12 Impression See Comment 49 Laboratory test 06/17/2013 [facility] Lyme Disease Negative Negative [address] [place] [address] [phone] C Reactive Protein < 0.5 mg/dL Less than 0.5 Comp Metabolic Panel 06/17/2013 [facility] Sodium 138 mmol/L 133-[address] [place] [address] [phone] Potassium 3.9 mmol/L 3.5-5.0 Chloride 101 mmol/L [...] Non- 98.3 >60 Egfr 126.4 >60 51 Basic Metabolic Panel 09/04/2012 [facility] Sodium 133 mmol/L 133-[address] [place] [address] [phone] Potassium 3.9 mmol/L 3.5-5.0 Chloride 99 mmol/L Low 101-111 Co2 Carbon Dioxide 30.0 mmol/L 22-32 Anion Gap 4.0 mmol/L 2-11 Glucose 90 mg/dL 70-100 Blood Urea Nitrogen 11 mg/dL 6-24 Creatinine 0.70 mg/dL 0.50-1.40 BUN/Creatinine Ratio 15.7 8-20 Calcium 8.7 mg/dL 8.1-9.9 Egfr Non- 82.5 >60 Egfr 106.1 >60 52 Vitamin D, 25 09/04/2012 [facility] 25-Hydroxy Vitamin <4.0 ng/ mL Hydroxy [address] D2 [place] [address] [phone] 25-Hydroxy Vitamin D3 25 ng/mL 25-Hydroxy Vitamin D Total 25 ng/mL 53 Manual Differential 09/04/2012 [facility] Platelet Morphology Large [address] [place] [address] [phone] Neutrophil % 66.0 % 38-83 Band % 4.0 % 0-8 Lymphocytes % 18.0 % Low 25-47 Monocytes % 8.0 % 0-13 Eosinophils % 1.0 % 0-6 Basophil % 0 % 0-2 Reactive Lymph % 3.0 % 0-6 Metamyelocytes % 0 % 0-2 Myelocytes % 0 % 0-1 Promyelocytes % 0 % Blast % 0 % RBC Morphology Normal Normal Iron & Iron Binding 09/04/2012 [facility] Iron 67 UG/ML 28- [address] [place] [address] [phone] Unsaturated Iron Binding 328 g/dL Total Iron Binding Capacity 395 g/dL 250-450 Transferrin 281.9 % Iron Saturation 17 % 15-55 CBC Auto 09/04/2012 [facility] White Blood 4.1 10^3/uL Low 4.8 -10.[address] [place] [address] [phone] Red Blood Count 3.90 10^6/uL Low 4.0-5.4 [...] Nucleated RBC 0.01 10^3/uL Lipid Panel 06/03/2011 [facility] Triglyceride 48 mg/dL 40- [address] [place] [address] [phone] Cholesterol 194 mg/dL Less Than 200 55 High Density Lipoprotein 78 mg/dL High 40-60 56 Cholesterol/HDL Ratio 2.49 AVERAGE 1-4.44 Low Density Lipoprotein 106 mg/dL High Less Than 100 57 BMP Basic Metabolic 06/03/2011 [facility] Sodium 139 mmol/L 135-[address] [place] [address] [phone] Potassium 4.8 mmol/L 3.5-5.0 Chloride 101 mmol/L 101-111 Co2 (Carbon Dioxide) 31.0 mmol/L 22-32 Anion Gap 7.0 mmol/L 2-11 58 Glucose 97 mg/dL 70-100 BUN 13 mg/dL 6-24 Creatinine 0.7 mg/dL 0.50-1.40 One Over Creatinine 1.42 BUN/Creatinine Ratio 18.6 8-20 Calcium 9.2 mg/dL 8.1-9.9 eGFR Non- 82.7 > 60 eGFR 106.4 > 60 59 Surgical 02/16/2011 [facility] Surgical [address] [facility] Pathology <SEE NOTE> [place] [address] [phone] Vitamin D, 25 05/21/2010 [facility] 25-Hydroxy <4.0 ng/mL () Hydroxy [address] [facility] Vitamin D2 [place] [address] [phone] 25-Hydroxy Vitamin D3 40 ng/mL () 25-Hydroxy Vitamin D Total 40 ng/mL () 61 Basic Metabolic 05/21/2010 [facility] Sodium 134 mmol/L Low 135-[address] [place] [address] [phone] Potassium 5.4 mmol/L High 3.5-5.0 Chloride 100 mmol/L Low 101-111 Co2 (Carbon Dioxide) 29.0 mmol/L 22-32 Anion Gap 5.0 mmol/L 2-11 62 Glucose 93 mg/dL 70-100 63 BUN 13 mg/dL 6-24 Creatinine 0.60 mg/dL 0.50-1.40 One Over Creatinine 1.60 BUN/Creatinine Ratio 21.7 High 8-20 Calcium 8.7 mg/dL 8.1-9.9 64 eGFR Non- 105.4 > 60 eGFR 127.5 > 60 65 Basic Metabolic Panel 04/22/2009 [facility] Sodium 139 mmol/L 135-145 [address] [place] [address] [phone] Potassium 4.3 mmol/L 3.5-5.0 Chloride 105 mmol/L 101-111 Co2 (Carbon Dioxide) 31.0 mmol/L 22-32 Anion Gap 3.0 mmol/L 2-11 66 Glucose 84 mg/dL 70-100 67 BUN 11 mg/dL 6-24 Creatinine 0.70 mg/dL 0.50-1.40 One Over Creatinine 1.40 BUN/Creatinine Ratio 15.7 8-20 Calcium 9.1 mg/dL 8.1-9.9 68 eGFR Non- 88.4 > 60 eGFR 107.0 > 60 69 Lipid Profile 04/22/2009 [facility] Triglyceride 43 mg/dL 40- 200 (Trig/Chol/HDL) [address] [place] [address] [phone] Cholesterol 199 mg/dL Less Than 200 70 High Density Lipoprotein 75 mg/dL High 40-60 71 Cholesterol/HDL Ratio 2.65 AVERAGE 1-4.44 Low Density Lipoprotein 115 mg/dL High Less Than 100 72 Basic Metabolic 04/09/2008 [facility] Sodium 133 mmol/L Low 135-145 Panel [address] [place] [address] [phone] Potassium 4.8 mmol/L 3.5-5.0 Chloride 103 mmol/L 101-111 Co2 (Carbon Dioxide) 30.0 mmol/L 22-32 Anion Gap 0 mmol/L Low 2-11 73 Glucose 84 mg/dL 70-105 BUN 13 mg/dL 6-24 Creatinine 0.8 mg/dL 0.5-1.4 One Over Creatinine 1.25 BUN/Creatinine Ratio 16.3 8-20 Calcium 8.6 mg/dL 8.1-9.9 74 Vitamin D, 25 04/09/2008 [facility] 25-Hydroxy Vitamin <4.0 ng/ mL () Hydroxy [address] [place] [address] [phone] 25-Hydroxy Vitamin D3 35 ng/mL () 25-Hydroxy Vitamin D Total 35 ng/mL () 75 Vitamin D, 25 10/10/2007 [facility] 25-Hydroxy Vitamin <4.0 ng/ mL () Hydroxy [address] [place] [address] [phone] 25-Hydroxy Vitamin D3 28 ng/mL () 25-Hydroxy Vitamin D Total 28 ng/mL () 76 PTH [employer] 10/10/2007 [facility] Calcium For 9.1 mg/dL 8.7-10.[address] [place] [address] [phone] PTH Intact 4.2 PMOL/L 1.3-9.3 77 Lipid Profile 10/10/2007 [facility] Cholesterol/HDL 2.64 1- 4.44 (Trig/Chol/HDL) [address] [place] [address] [phone] Cholesterol 201 mg/dL High Less Than 200 78 Triglyceride 58 mg/dL 40-200 High Density Lipoprotein 76 mg/dL High 40-60 79 Low Density Lipoprotein 113 mg/dL High Less Than 100 80 Basic Metabolic 10/10/2007 [facility] One Over Creatinine 1.[address] [place] [address] [phone] Anion Gap 4.0 mmol/L 2-11 81 BUN 12 mg/dL 6-24 Calcium 9.2 mg/dL 8.7-10.2 Chloride 99 mmol/L Low 101-111 Co2 (Carbon Dioxide) 33.0 mmol/L High 22-32 Glucose 91 mg/dL 70-105 Potassium 4.2 mmol/L 3.5-5.0 Sodium 136 mmol/L 135-145 BUN/Creatinine Ratio 17.1 8-20 Creatinine 0.7 mg/dL 0.5-1.4 1 Tie In Hand: [id number] 2 Because ethnic data is not always [...] 5 Kidney failure <15 (or dialysis) 3 [id number] 4 SEE RESULT BELOW Name: KIANNA ASKEW : [address]: Elieser Ballesteros MD Acct: [id number] Unit: [id number] AGE: 78 Location: [facility] Re06/13/18 SEX: F Status: DEP REF SPEC: [id number] MARISEL: 06/13/18-[address] [facility] [address]: Elieser Ballesteros MD REQ: [id number] RECD: 06/13/18409 STATUS: YA CALL DR: Colt Garcia MD _ ORDERED: LEVEL 4/4 COMMENTS: [id number] FINAL DIAGNOSIS 1. Colon, transverse, biopsy: -- [...] CONTINUED ON NEXT PAGE DEPARTMENT OF PATHOLOGY, [address] [place] [address] Junior Mckenzie M.D. Director [facility] # [id number] RUN DATE: 06/14/18 [facility] LAB LIVE PAGE 2 Patient: KIANNA ASKEW Jackson [id number] (Continued) GROSS DESCRIPTION (Continued) GROSS DESCRIPTION 1. [...] 1533 END OF REPORT DEPARTMENT OF PATHOLOGY, [address] [place] [address] Junior Mckenzie M.D. Director [facility] # [id number] 5 Nonsmokers: < 2.9 ng/mL Some smokers may have elevated CEA, usually <5.0 ng/mL. Serum markers are not specific for malignancy, and values may vary by method. The testing method is an immunoenzymatic assay buffet attendant by [employer] performed on [employer] DXI 600. Do not interpret serum CEA levels as absolute evidence of the presence or the absence of malignant disease. Use serum CEA in conjunction with information from the clinical evaluation of the patient and other diagnostic procedures. 6 [id number] 7 SEE RESULT BELOW Name: HARJEETKIANNA R : [address]: Anastacia Heredia NP Acct: [id number] Unit: [id number] AGE: 77 Location: [facility] Re11/03/17 SEX: F Status: REG REF SPEC: [id number] MARISEL: 11/03/[address] [facility] [address]: Anastacia Heredia NP REQ: [id number] RECD: 11/03/17 STATUS: COMP _ SOURCE: URINE SPDESC: ORDERED: Urine Culture COMMENTS: [id number] Urine Source: Random Procedure Result Reported Site Urine Culture Final 11/05/17- 0955 ML No Growth (<1,000 CFU/mL) * ML - MAIN LAB ([facility]) . END OF REPORT * ML=Testing performed at Main Lab DEPARTMENT OF PATHOLOGY, [address] [place] [address] Junior Mckenzie M.D. Director [facility] # [id number] 8 Nonsmokers: < 2.9 ng/mL Some smokers may have elevated CEA, usually <5.0 ng/mL. Serum markers are not specific for malignancy, and values may vary by method. The testing method is an immunoenzymatic assay buffet attendant by [employer] performed on [employer] DXI 600. Do not interpret serum CEA levels as absolute evidence of the presence or the absence of malignant disease. Use serum CEA in conjunction with information from the clinical evaluation of the patient and other diagnostic procedures. 9 SEE RESULT BELOW Name: KIANNA ASKEW : [address]: Elieser Ballesteros MD Acct: [id number] Unit: [id number] AGE: 77 Location: ENDO Re08/22/17 SEX: F Status: DEP REF SPEC: [id number] MARISEL: 08/22/[address] [facility] [address]: Elieser Ballesteros MD REQ: [id number] RECD: 08/22/17 STATUS: YA CALL DR: Colt [...] performed at Main Lab DEPARTMENT OF PATHOLOGY, [address] [place] [address] Junior Mckenzie M.D. Director [facility] # [id number] RUN DATE: 08/23/17 [facility] LAB LIVE PAGE 2 Patient: KIANNA ASKEW [id number] (Continued) GROSS DESCRIPTION (Continued) Signed (signature on file) Junior Mckenzie MD 1333 END OF REPORT * ML=Testing performed at Main Lab DEPARTMENT OF PATHOLOGY, [address] [place] [address] Junior Mckenzie M.D. Director [facility] # [id number] 10 SEE RESULT BELOW Name: KIANNA ASKEW : [address]: Elieser Ballesteros MD Acct: [id number] Unit: [id number] AGE: 77 Location: ENDO Re08/22/17 SEX: F Status: REG REF SPEC: [id number] MARISEL: 08/22/[address]: Elieser Ballesteros MD REQ: [id number] RECD: 08/22/17 STATUS: COMP TOIHR DR: Colt Garcia MD _ SOURCE: NO SOURCE SPDESC: ORDERED: Clotest Procedure Result Reported Site Clotest Final 08/23/17- 900 ML Clotest Negative * ML - MAIN LAB ([facility]) . END OF REPORT * ML=Testing performed at Main Lab DEPARTMENT OF PATHOLOGY, [address] [place] [address] Junior Mckenzie M.D. Director [facility] # [id number] 11 A negative result does not exclude the diagnosis of autoimmune myasthenia gravis. 12 ADDITIONAL INFORMATION This test was developed and its performance characteristics determined by [facility] in a manner consistent with CLIA requirements. This test has not been cleared or approved by the U.S. Food and Drug Administration. 13 REFERENCE VALUE 0-20% (reported as _% loss of AChR) ADDITIONAL INFORMATION This test was developed and its performance characteristics determined by [facility] in a manner consistent with CLIA requirements. This test has not been cleared or approved by the U.S. Food and Drug Administration. 14 ADDITIONAL INFORMATION This test was developed and its performance characteristics determined by [facility] in a manner consistent with CLIA requirements. This test has not been cleared or approved by the U.S. Food and Drug Administration. Test Performed by: [facility] [employer] [facility] [address] [place] [address] 15 Copy Result to: AFSHAN ARNOLD ([id number]) 16 Copy Result to: AFSHAN ARNOLD ([id number]) 17 Test Performed by: [facility] [employer] [facility] [address] [place] [address] 18 Because ethnic data is not always [...] 5 Kidney failure <15 (or dialysis) 19 Tie In Hand: [id number] 20 Normal Range 180 to 914 Indeterminate [...] The testing method is an immunoenzymatic assay buffet attendant by [employer] performed on [employer] DXI 600. Do not interpret serum CEA levels as absolute evidence of the presence or the absence of malignant disease. Use serum CEA in conjunction with information from the clinical evaluation of the patient and other diagnostic procedures. 23 SEE RESULT BELOW Name: KIANNA ASKEW : [address]: Elieser Ballesteros MD Acct: [id number] Unit: [id number] AGE: 77 Location: ENDO Re02/14/17 SEX: F Status: REG REF SPEC: [id number] MARISEL: 02/14/17-[address] [facility] [address]: Elieser Ballesteros MD REQ: [id number] RECD: 02/14/17 STATUS: YA CALL DR: Colt [...] performed at Main Lab DEPARTMENT OF PATHOLOGY, [address] [place] [address] Junior Mckenzie M.D. Director [facility] # [id number] RUN DATE: 02/15/17 [facility] LAB LIVE PAGE 2 Patient: DIDIERLIZZETHKIANNA [id number] (Continued) GROSS DESCRIPTION (Continued) GROSS DESCRIPTION 1. [...] performed at Main Lab DEPARTMENT OF PATHOLOGY, [address] [place] [address] Junior Mckenzie M.D. Director [facility] # [id number] 24 Nonsmokers: < 2.9 ng/mL Some smokers may have elevated CEA, usually <5.0 ng/mL. Serum markers are not specific for malignancy, and values may vary by method. The testing method is an immunoenzymatic assay buffet attendant by [employer] performed on [employer] [place] DXI 600. Do not interpret serum CEA [...] [address]: Roosevelt Reyes NP Acct: [id number] Unit: [id number] AGE: 76 Location: [facility] Re05/02/16 SEX: F Status: REG REF SPEC: [id number] MARISEL: 05/02/161508 [facility] DR: Roosevelt Reyes HYDRO MECHANIC REQ: [id number] RECD: 05/02/16 STATUS: SOUT _ ORDERED: IMAGE ANALYSIS, HPV/Thin Prep, HPV 16/18 GENE COMMENTS: [id number] FINAL DIAGNOSIS Negative for Intraepithelial lesion or [...] and 68. Signed (signature on file) PAMELLA Patel(ASC) 05/03 1511 This Pap test was evaluated with the assistance of the Copyright AgentPrep Test Imaging System. Due to cytologic findings at the power engineer microscope, comprehensive manual rescreening by a Bakery Products Checker may be required. The Pap Smear is [...] performed at Main Lab DEPARTMENT OF PATHOLOGY, [address] [place] [address] RUN DATE: 05/03/16 [facility] LAB LIVE PAGE 1 Patient: KIANNA ASKEW [id number] (Continued) Junior Mckenzie M.D. Director [facility] # [id number] 28 [id number] HPV Source?: Thin Prep Trichomonas Source: Thin Prep 29 The high-risk HPV types detected by the assay include: 16, 18, 31, 33, 35, 39, 45, 51, 52, 56, 58, 59, 66, and 68. 30 SEE RESULT BELOW Name: KIANNA ASKWE : [address]: Roosevelt Reyes NP Acct: [id number] Unit: [id number] AGE: 76 Location: [facility] Re05/02/16 SEX: F Status: REG REF SPEC: [id number] MARISEL: 05/02/16-[address]: Roosevelt Reyes NP REQ: [id number] RECD: 05/02/16 STATUS: COMP _ SOURCE: VAGINAL [...] or failure. * ML - MAIN LAB ([facility]) . END OF REPORT * ML=Testing performed at Main Lab DEPARTMENT OF PATHOLOGY, [address] [place] [address] Junior Mckenzie M.D. Director [facility] # [id number] 32 SEE RESULT BELOW Name: KIANNA ASKEW : [address]: Jocy Valle MD Acct: [id number] Unit: [id number] AGE: 76 Location: [facility] Re04/12/16 SEX: F Status: DEP ER SPEC: [id number] MARISEL: 04/12/16-[address] [facility] [address]: Jocy Valle MD REQ: [id number] RECD: 04/12/16 STATUS: SUZETTE CALL DR: Colt Ballesteros MD _ SOURCE: URINE SPDESC: ORDERED: Urine Culture COMMENTS: [id number] Procedure Result Reported Site Urine Culture Final 04/13/16- 1611 ML No Growth (<1,000 CFU/mL) * ML - MAIN LAB ([facility]) . END OF REPORT * ML=Testing performed at Main Lab DEPARTMENT OF PATHOLOGY, [address] [place] [address] Junior Mckenzie M.D. Director [facility] # [id number] 33 [id number] 34 Nonsmokers: < 2.9 ng/mL Some smokers may have elevated CEA, usually <5.0 ng/mL. Serum markers are not specific for malignancy, and values may vary by method. The testing method is an immunoenzymatic assay buffet attendant by [employer] performed on [employer] DXI 600. Do not interpret serum CEA [...] 5 Kidney failure <15 (or dialysis) 36 [id number] 37 SEE RESULT BELOW Name: KIANNA ASKEW : [address]: Elieser Ballesteros MD Acct: [id number] Unit: [id number] AGE: 76 Location: [facility] Re03/23/16 SEX: F Status: REG REF SPEC: [id number] MARISEL: 03/23/16-[address] [facility] [address]: Elieser Ballesteros MD REQ: [id number] RECD: 03/23/16-1610 STATUS: YA CALL DR: Colt Beaulieu MD _ ORDERED: LEVEL IV/4, CD56 Immunostai, SYNA-ADD, CGS-ADD COMMENTS: [id number] Immunohistochemical staining, with appropriately reacting controls, was [...] performed at Main Lab DEPARTMENT OF PATHOLOGY, [address] [place] [address] Junior Mckenzie M.D. Director [facility] # [id number] RUN DATE: 03/29/16 [facility] LAB LIVE PAGE 2 Patient: KIANNA ASKEW [id number] (Continued) CLINICAL HISTORY (Continued) CLINICAL HISTORY Diet [...] performed at Main Lab DEPARTMENT OF PATHOLOGY, [address] [place] [address] Junior Mckenzie M.D. Director [facility] # [id number] 38 Serologic response to B. burgdorferi infection is not detected, but cannot rule out early infection during which low or undetectable antibody levels to B. burgdorferi may be present. If clinically indicated, a new serum specimen should be submitted in 7-14 days. Test Performed by: [place] [address] Head Of Housekeeping: Jim Monahan II, M.D., Ph.D. 39 Because ethnic data is not always readily [...] 15-29 5 Kidney failure <15 (or dialysis) 40 RUN DATE: 01/08/15 [facility] LAB LIVE PAGE 1 RUN TIME: [address] [place], [place] [address] Specimen Inquiry Name: KIANNA ASKEW Jackson : [address]: Roosevelt Reyes HYDRO MECHANIC Acct: [id number] Unit: [id number] AGE: 74 Location: [facility] Re01/06/15 SEX: F Status: REG REF SPEC: [id number] MARISEL: 01/06/15-[address]: Roosevelt Reyes HYDRO MECHANIC REQ: [id number] RECD: 01/06/15-130 STATUS: COMP _ SOURCE: URINE SPDESC: ORDERED: Urine Culture QUERIES: Provider Requisition # [id number] Procedure Result Verified Site Urine Culture Final 01/08/15- 1032 ML Organism 1 NORMAL THOMPSON [place] Count 10-25,000 (Moderate) CFU/ML * ML - [facility] ([facility]) . END OF REPORT * ML=Testing performed at Main Lab DEPARTMENT OF PATHOLOGY, [address] [place] [address] Junior Mckenzie M.D. Director [facility] # [id number] 41 -- REFERENCE VALUE -- 25-HYDROXY D TOTAL (D2+D3) Optimum levels in the healthy population are 20-50, patients with bone disease may benefit from higher levels within this range. Test Performed by: [place] [address] Head Of Housekeeping: Maximo Palafox III, M.D. 42 Acute inflammation: >10.00 43 Test Performed by: [address] [address] Head Of Housekeeping: Maximo Palafox III, M.D. 44 Because ethnic [...] screening test (e.g., EIA). Test Performed by: [place] [address] Head Of Housekeeping: Maximo Palafox III, M.D. 47 Test Performed by: [place] [address] Head Of Housekeeping: Maximo Palafox III, M.D. 48 Consistent with previous results. 49 No apparent monoclonal protein on serum electrophoresis. Test Performed by: [place] [address] Head Of Housekeeping: Maximo Palafox III, M.D. 50 Serologic response to B. burgdorferi infection is not detected, but cannot rule out early infection during which low or undetectable antibody levels to B. burgdorferi may be present. If clinically indicated, a new serum specimen should be submitted in 7-14 days. Test Performed by: [place] [address] Head Of Housekeeping: Maximo Palafox III, M.D. 51 Because ethnic [...] 5 Kidney failure <15 (or dialysis) 52 Because ethnic data is not always readily [...] 15-29 5 Kidney failure <15 (or dialysis) 53 -- REFERENCE VALUE -- 25-HYDROXY D TOTAL (D2+D3) Optimum levels in the normal population are 25-80 Test Performed by: [address] [address] Head Of Housekeeping: Maximo Palafox III, M.D. 54 FASTING 55 CHOLESTEROL INTERPRETATION: Desirable: Less [...] (or dialysis) 60 ---- RUN DATE: 02/18/11 [facility] NMI LIVE PAGE 1 RUN TIME: 1346 Specimen Inquiry RUN USER: INTERFACE -- Name: HARJEETKIANNA#: [id number] Status: REG REF Re02/16/11 Age/Sex: 71/F Unit#: [id number] Location: [facility] : 41 -- Specimen: [id number] Spec Date: 02/16/[address]: Elieser ahumada MD Spec Type: SURGICAL P Received: 02/17/11-1247 Copies to: Colt arias MD SPECIMEN 1) [...] 02/18/11 1345 -- -- DEPARTMENT OF PATHOLOGY, [address] [place] [address] [facility] Permit #[id number] Junior Mckenzie M.D. Director Cristina Orlando M.D. Nut Process Helper Dir stoney -- 61 -- REFERENCE VALUE -- 25-HYDROXY D TOTAL (D2+D3) Optimum levels in the normal population are 25-80 Test Performed by: [facility] Dpt of Lab Med and Pathology [address] [place] [address] Head Of Housekeeping: Maximo Palafox III, M.D. 62 Anion gap measurement may be of limited value in the presence of any alkalosis, especially in a combined acid base disorder. . 63 Note change in reference range as of 05/15/08. The change was based on recommendations from the [employer] [employer]. 64 Please note change in [...] 5 Kidney failure <15 (or dialysis) 66 Anion gap measurement may be of limited value in the presence of any alkalosis, especially in a combined acid base disorder. . 67 Note change in reference range as of 05/15/08. The change was based on recommendations from the [employer]. 68 Please note change in reference range effective 08 . 69 Because ethnic data is not always readily [...] 15-29 5 Kidney failure <15 (or dialysis) 70 CHOLESTEROL INTERPRETATION: Desirable: Less than 200 MG/DL Borderline-High Risk: 200-239 MG/DL High-Risk: 240 MG/DL and over 71 HDL INTERPRETATION: Undesirable: High Risk: Less than 40 MG/DL Desirable: Low Risk: Greater than 60 MG/DL 72 LDL INTERPRETATION: Low Risk Optimal Level: LDL Less than 100 MG/DL Near or Above Optimal: LDL 100-129 MG/DL Borderline High Risk: LDL 130-159 MG/DL High Risk: LDL 160-189 MG/DL Very High Risk: LDL Greater than 189 MG/DL 73 Anion gap measurement may be of limited value in the presence of any alkalosis, especially in a combined acid base disorder. . 74 Please note change in reference range effective 08 . 75 -- REFERENCE VALUE -- 25-HYDROXY D TOTAL (D2+D3) Optimum levels in the normal population are 25-80 Test Performed by: [facility] Dpt of Lab Med and Pathology [address] [place] [address] Head Of Housekeeping: Maximo Palafox III, M.D. 76 -- REFERENCE VALUE -- 25-HYDROXY D TOTAL (D2+D3) Optimum levels in the normal population are 25-80 Test Performed by: [facility] Dpt of Lab Med and Pathology [address] [place] [address] Head Of Housekeeping: Maximo Palafox III, M.D. 77 PLEASE NOTE [...] disorder. . Procedures Date Code Description Status 08/27/2018 [id number] Mammogram Completed 06/13/2018 01971 Colonoscopy Flexible Remove Tumor/Polyp/Lesion Snare Completed Technique 06/13/2018 99914 Colonoscopy,W/Directed Submucosal Injections, Any Completed Substance 06/13/2018 [id number] Colonoscopy Completed 08/22/2017 [id number] Colonoscopy Completed 08/10/2017 00169 ECHO Transthoracic, Real-Time 2D With Doppler And Completed Color Flow 08/10/2017 59238 ECHO Transthoracic, Real-Time 2D With Doppler And Completed Color Flow 05/24/2017 26758 EKG, Interpretation Only Completed 04/04/2017 [id number] Bone Mineral Density Test Completed 02/14/2017 12557680 Colonoscopy Completed 08/22/2016 [id number] Mammogram Completed 04/08/2016 81310 EKG, Interpretation Only Completed 03/23/2016 [id number] Colonoscopy Completed 08/17/2015 165271775 Bone Mineral Density Test Completed 08/10/2015 73861291 Mammogram Completed 08/15/2014 71942540 Mammogram Completed 06/21/2013 36243148 Mammogram Completed 11/01/2012 87202 EKG Tracing & Interpretation Completed 06/09/2011 [id number] Mammogram Completed 02/16/2011 84331838 Colonoscopy Completed 07/13/2009 19822785 Mammogram Completed 07/03/2008 50862626 Mammogram Completed 08/16/2006 72848 ECHO/Stress Completed 08/16/2006 50904 ECHO/Stress Completed 08/16/2006 05601 Stress Test Completed 08/02/2006 50339 Echocardiogram Completed 08/02/2006 53966 Pulse Doppler & Continuous Wave Completed 08/02/2006 96737 Pulse Doppler & Continuous Wave Completed 08/02/2006 05842 Color Doppler Completed 01/23/2006 46232979 Colonoscopy Completed Encounters Type Date Location Provider Dx Diagnosis Office Visit 10/10/2018 [facility] Internal Anabelaofia Yan, S61.552A Open bite of left 10:00a Medicine - [place] DATA ANALYST ETL DEVELOPER wrist, initial Rd encounter W55.01xA Bitten by cat, initial encounter K21.0 Gastro-esophageal reflux disease with esophagitis M47.26 Other spondylosis with radiculopathy, lumbar region M85.89 Oth disrd of bone density and structure, multiple sites I10 Essential (primary) hypertension S61.551A Open bite of right wrist, initial encounter Office Visit 07/25/2018 3:20p [facility] Internal Anabelaofia Yan, M54.41 Lumbago with Medicine - [place] DATA ANALYST ETL DEVELOPER sciatica, right Rd side K21.0 Gastro-esophageal reflux disease with esophagitis Office Visit 07/18/2018 9:20a [facility] Internal Anastacia Heredia, M54.41 Lumbago with Medicine - [place] DATA ANALYST ETL DEVELOPER sciatica, right Rd side M41.9 Scoliosis, unspecified K21.0 Gastro-esophageal reflux disease with esophagitis R63.4 Abnormal weight loss Office Visit 06/18/2018 [facility] Gastroenterology Elieser T. 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.,FACP heterophoria Gerald I10 Essential (primary) hypertension K44.9 Diaphragmatic hernia without obstruction or gangrene G60.8 Other hereditary and idiopathic neuropathies Office Visit 08/28/2017 1:40p [facility] Janiya Mcdermott R63.4 Abnormal weight Cherelle Beaulieu M.D.,FACP loss Rd I10 Essential (primary) hypertension 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, right eye Office Visit 07/27/2017 3:40p [facility] Janiya Mcdermott R63.4 Abnormal weight Cherelle Beaulieu M.D.,FACP loss Rd R42 Dizziness and giddiness I10 Essential (primary) hypertension H53.2 Diplopia Office Visit 03/21/2017 3:00p [facility] Janiya Mcdermott Z00.01 Encounter for Cherelle Beaulieu M.D.,FACP general adult Gerald medical exam w abnormal findings I10 Essential (primary) hypertension M81.0 Age-related osteoporosis w/o current pathological fracture C18.9 Malignant neoplasm of colon, unspecified E04.1 Nontoxic single thyroid nodule Office Visit 03/08/2017 10:50a [facility] Janiya Mcdermott J01.00 Acute maxillary Cherelle Beaulieu M.D.,FACP sinusitis, Rd unspecified Office Visit 01/25/2017 8:30a Orthopedic Dirk Dorota, M41.26 Other idiopathic [facility] scoliosis, lumbar C.M.A. region M47.26 Other spondylosis with radiculopathy, lumbar region M51.36 Other intervertebral disc degeneration, lumbar region Office Visit 01/06/2017 10:40a Domi Mcdermott M25.551 Pain in right Cherelle Beaulieu M.D.,FACP hip [place] [address] Office Visit 11/15/2016 9:50a Domi Mcdermott S33.5xxD Sprain of Cherelle Beaulieu M.D.,FACP ligaments of Gerald lumbar spine, subsequent encounter M25.551 Pain in right hip Office Visit 11/10/2016 8:30a [facility] Janiya Walker S33.5xxA Sprain of Cherelle Stern M.D. ligaments of [place] lumbar spine, initial encounter Office Visit 10/11/2016 1:40p [facility] Internal Colt Mcdermott M54.2 Cervicalgia Medicine - Iggy Beaulieu M.D.,FACP S20.211A Contusion of right front wall of thorax, initial encounter Office Visit 09/06/2016 [facility] Internal Raymundo Gillis Z01.810 Encounter for 2:00p Cherelle Weber M.D. preprocedural [facility] cardiovascular examination H26.9 Unspecified cataract I10 Essential (primary) hypertension C18.9 Malignant neoplasm of colon, unspecified Office Visit 07/18/2016 10:40a [facility] Internal Roosevelt Reyes, W19.xxxA Unspecified fall, Medicine - HYDRO MECHANIC initial encounter [address] S23.8xxA Sprain of other specified parts of thorax, initial encounter Office Visit 05/02/2016 2:00p [facility] Internal Roosevelt Reyes, N76.0 Acute vaginitis Medicine - [place] HYDRO MECHANIC Rd Z12.4 Encounter for screening for malignant neoplasm of cervix Office Visit 04/25/2016 1:20p [facility] Internal Roosevelt Reyes, C18.9 Malignant neoplasm Medicine - [place] HYDRO MECHANIC of colon, Rd unspecified I10 Essential (primary) hypertension K62.5 Hemorrhage of anus and rectum R19.5 Other fecal abnormalities Office Visit 03/03/2016 3:20p [facility] Internal Roosevelt Reyes HYDRO MECHANIC R53.83 Other fatigue Medicine - [address] M54.5 Low back pain M15.9 Polyosteoarthritis, unspecified Office Visit 02/18/2016 1:00p [facility] Internal Roosevelt Reyes HYDRO MECHANIC R53.83 Other fatigue Medicine - [address] M15.9 Polyosteoarthritis, unspecified R21 Rash and other nonspecific skin eruption Office Visit 08/28/2015 10:00a [facility] Internal Roosevelt Reyes, J01.90 Acute sinusitis, Medicine - HYDRO MECHANIC unspecified [address] Office Visit 01/06/2015 11:00a [facility] Internal Roosevelt Reyes, 788.1 Dysuria Medicine - HYDRO MECHANIC [address] 616.10 Vaginitis & Vulvovaginitis Unspec Office Visit 07/15/2014 9:00a [facility] Internal Mihir Roberts, 923.3 Contusion Finger Medicine - HYDRO MECHANIC Iggy 959.5 Injury Finger Other & Unspec Office Visit 05/29/2014 10:30a [facility] Mihir Roberts, 919.4 Injury Superficial Medicine - HYDRO MECHANIC Insect Bite Oth Gerald Mult Unsp Nonv W/O Infect 336.8 Myelopathy Other E906.4 Bite Nonvenomous Arthropod Office Visit 06/25/2013 10:50a [facility] Colt Beaulieu, 724.3 Sciatica Medicine Iggy Manning,FACP 281.1 Vitamin B12 Deficiency Anemia Other v04.81 Need For Prophylactic Vaccination & Inoculation/Influenza Office Visit 05/10/2013 4:00p [facility] Colt Beaulieu, 724.3 Sciatica Cherelle Parkinson M.D.,FACP 780.79 Malaise And Fatigue Other Office Visit 02/27/2012 9:45a [facility] Denise 691.8 Dermatitis Atopic Cherelle Stern M.D. & Related Gerald Conditions Other Office Visit 01/12/2012 2:15p [facility] Denise v06.1 Diphtheria- Tetanu Cherelle Stern M.D. s-Pertusis Gerald Combined (DTaP) 916.9 Injury Superficial Hip Thigh Leg Ankle Other Unspec Infected Office Visit 05/21/2010 10:00a DO Not Use Bar Host/Hostess Colt Mcdermott 401.1 Hypertension AT Karime Beaulieu M.D.,FACP Benign 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 V76.10 Screening For Malignant Neoplasm Breast 835.00 Dislocation Hip Closed Unspec Office Visit 04/29/2009 1:00p DO Not Use Bar Host/Hostess Colt Mcdermott 401.1 Hypertension AT Karime Beaulieu M.D.,FACP Benign 272.2 Hyperlipidemia Mixed 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 Office Visit 07/15/2008 2:40p DO Not Use Bar Host/Hostess Colt Mcdermott 717.49 Derangement AT Karime Beaulieu M.D.,FACP Lateral Meniscus Other Office Visit 04/15/2008 9:00a DO Not Use Bar Host/Hostess Colt Mcdermott 401.1 Hypertension AT Karime Beaulieu M.D.,FACP Benign 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 Office Visit 10/18/2007 8:40a DO Not Use Bar Host/Hostess Colt Mcdermott 733.90 Bone & Cartilage AT Karime Beaulieu M.D.,FACP Disorder Unspec 401.1 Hypertension Benign 473.9 Sinusitis Chronic Unspec Plan of Treatment 11/09/2018 - Natalie Mercado, N.P.I10 Essential (primary) hypertensionComments: Your blood pressure is actually a bit low now. Please do not take any more Felodipine. I think your blood pressure cuff is not accurate. Ou may need new batteries. IF you should have any further problems, please contact he office.
--- NOTE | 2018-11-28 22:02 | ED ---
Complex/Multi-Sys Presentation - HPI Summary HPI Summary: This patient is a 78 year old F presenting to [facility] accompanied by her daughter with a chief complaint of elevated blood pressure since 08:00. Per triage note, she reports a BP of 179/93 at home. The patients daughter notes that her speech sounded slurred on the phone at 15:00. The patient rates the pain 5/10 in severity. Symptoms aggravated by nothing. Symptoms alleviated by nothing. Patient reports diaphoresis of upper body while eating, chills, VASQUEZ, lightheadedness, body aches, tingling in bilateral fingers and feet, and feeling disoriented. The patient also notes blurred, double vision and has seen her eye doctor about it but he did not diagnose the cause. Patient denies fever , nasal congestion, or cough. Pt has hx HTN and neuropathy. Patient takes Felodipine and took it today at 11:00. - History Of Current Complaint Chief Complaint: EDGeneral Time Seen by Provider: 11/28/18 21:40 Hx Obtained From: Patient, Family/Clock Smith - patient's daughter Onset/Duration: Gradual Onset, Lasting Hours, Still Present Timing: Constant Severity Currently: Mild Severity Initially: Mild Character: Dull - ache Aggravating Factor(s): nothing Alleviating Factor(s): nothing Associated Signs And Symptoms: Positive: Confusion - feeling disoriented, Dizziness - lightheadedness, Headache, Diaphoresis, Other - body aches, tingling in bilateral fingers and feet, chills, blurred vision, double vision, negative nasal congestion. Negative: Cough, Fever - Allergies/Home Medications Allergies/Adverse Reactions: Allergies Allergy/AdvReac Type Severity Reaction Status Date / Time No Known Allergies Allergy Verified 11/28/18 20:31 Home Medications: Home Medications Felodipine (NF) [Plendil (NF)] 5 mg PO DAILY 11/28/18 [History Confirmed ] PMH/Surg Hx/FS Hx/Imm Hx Endocrine/Hematology History: Denies: Hx Diabetes, Hx Systemic Lupus Erythematosus Cardiovascular History: Reports: Hx Hypertension - MEDS Denies: Hx Congestive Heart Failure, Hx Pacemaker/ICD History: Reports: Other Problems/Disorders - OCCASIONAL UTI, LAST TIME 2015 Denies: Hx Dialysis, Hx Renal Disease Musculoskeletal History: Reports: Hx Scoliosis, Other Musculoskeletal History - SCOLIOSIS-RIGHT LOWER BACK PAIN INTO THE HIP AT TIMES Denies: Hx Rheumatoid Arthritis Comment Only: Hx Back Problems - low back pain, Hx Osteoporosis - OSTEOPENIA Sensory History: Reports: Hx Cataracts - BILATERAL, Hx Contacts or Glasses Denies: Hx Hearing Aid Opthamlomology History: Reports: Hx Cataracts - BILATERAL, Hx Contacts or Glasses Neurological History: Reports: Other Neuro Impairments/Disorders - neuropathy Psychiatric History: Denies: Hx Panic Disorder - Cancer History Cancer Type, Location and Year: colon Hx Chemotherapy: No Hx Radiation Therapy: No - Surgical History Surgery Procedure, Year, and Place: T&A as child 9 AGE 8; TUBAL LIGATION 1981 ; COLONOSCOPY 03/23/2016 3X POLYPS REMOVED WHICH WERE BENIGN; ADDITIONAL FINDING OF COLONOSCOPY THERE IS A POYPS OF SIGNIFICANCE TO BE REMOVED 04/15/2016 FOUND TO BE CANCEROUS. partial colectomy 03/2016,bilat cataracts. BLADDER SLING Hx Anesthesia Reactions: No Infectious Disease History: No Infectious Disease History: Denies: Traveled Outside the [place] in Last 30 Days - Family History Known Family History: Negative: Cardiac Disease, Hypertension, Diabetes Family History: NON CONTRIBUTORY - Social History Alcohol Use: Occasionally Alcohol Amount: glass of wine Substance Use Type: Reports: None Smoking Status (MU): Never Smoked Tobacco Review of Systems Positive: Chills, Skin Diaphoresis. Negative: Fever Positive: Blurred Vision, Diplopia ENT: Negative - negative nasal congestion Negative: Cough Positive: Myalgia - body aches Neurological: Other - lightheadedness, feeling disoriented Positive: Headache, Paresthesia - in bilateral hands and feet, Slurred Speech All Other Systems Reviewed And Are Negative: Yes Physical Exam - Summary Physical Exam Summary: VITAL SIGNS: Reviewed. GENERAL: Patient is a well-developed and nourished FEMALE who is lying comfortable in the stretcher. Patient is not in any acute respiratory distress. HEAD AND FACE: No signs of trauma. No ecchymosis, hematomas or skull depressions. No sinus tenderness. EYES: PERRLA, EOMI x 2, No injected conjunctiva, no nystagmus. EARS: Hearing grossly intact. Ear canals and tympanic membranes are within normal limits. MOUTH: Oropharynx within normal limits. NECK: Supple, trachea is midline, no adenopathy, no JVD, no carotid bruit, no c- spine tenderness, neck with full ROM. CHEST: Symmetric, no tenderness at palpation LUNGS: Clear to auscultation bilaterally. No wheezing or crackles. CVS: Regular rate and rhythm, S1 and S2 present, no murmurs or gallops appreciated. ABDOMEN: Soft, non-tender. No signs of distention. No rebound no guarding, and no masses palpated. Bowel sounds are normal. EXTREMITIES: FROM in all major joints, no edema, no cyanosis or clubbing. NEURO: Alert and oriented x 3. No acute neurological deficits. Speech is normal and follows commands. GCS 15. SKIN: Dry and warm Triage Information Reviewed: Yes Vital Signs On Initial Exam: Initial Vitals Temp Pulse Resp BP Pulse Ox 96.9 F 76 16 140/83 100 11/28/18 20:20 11/28/18 20:20 11/28/18 20:20 11/28/18 20:20 11/28/18 20:20 Vital Signs Reviewed: Yes Diagnostics - Vital Signs Vital Signs Temp Pulse Resp BP Pulse Ox 11/28/18 20:20 96.9 F 76 16 140/83 100 - Laboratory Result Diagrams: 11/28/18 22:15 11/28/18 22:14 Lab Statement: Any lab studies that have been ordered have been reviewed, and results considered in the medical decision making process. - CT CT Brain CT Interpretation Completed By: Radiologist Summary of CT Findings: IMPRESSION: 1. No acute intracranial pathology. ASPECTS score 10. 2. Other chronic findings, as above. Dr. Su has reviewed this report. CTA Head/Neck CT Interpretation Completed By: Radiologist Summary of CT Findings: IMPRESSION: No intracranial arterial occlusion or hemodynamically significant stenosis. No occlusion or hemodynamically significant stenosis in the arteries of the neck. Other chronic findings. Dr. Su has reviewed this report. - EKG 20:41 Cardiac Rate: NL - at 71 bpm EKG Rhythm: Sinus Rhythm ST Segment: Normal Ectopy: None Summary of EKG Findings: NSR at 71 bpm with nml intervals, nml axis, and no ischemic changes Re-Evaluation - Re-Evaluation 1st re-eval Re-Evaluation Time: 23:57 Change: Improved Comment: Patient has been asymptomatic in the ED since arrival. Reviewed CT results and bloodwork with patient. Complex Multi-Symp Course/Dx Course Of Treatment: This patient is a 78 year old F with hx HTN presenting to [facility] accompanied by her daughter with a chief complaint of elevated blood pressure since 08:00. The patients daughter notes slurred speech. Patient reports diaphoresis of upper body while eating, chills, VASQUEZ, lightheadedness, body aches, blurred vision, double vision, tingling in bilateral fingers and feet, and feeling disoriented. An EKG reveals NSR at 71 bpm with nml axis, nml intervals, and no ischemic changes. CTA Head/Neck reveals, per radiologist, No intracranial arterial occlusion or hemodynamically significant stenosis. No occlusion or hemodynamically significant stenosis in the arteries of the neck. Other chronic findings. CT Brain reveals, per radiologist, 1. No acute intracranial pathology. ASPECTS score 10. 2. Other chronic findings. ED physician has reviewed these radiology reports. Bloodwork and UA obtained. In the ED course the patient was given ASA, Contrast, IV fluids, and Norvasc. Patient has been asymptomatic while in the emergency room. Dx TIA. Patient will be discharged home with follow up from PCP. Patient is advised to monitor her blood pressure and take ASA daily. The patient is agreeable with this plan. - Diagnoses Provider Diagnoses: TIA (transient ischemic attack) Discharge - Sign-Out/Discharge Documenting (check all that apply): Patient Departure - discharge home Patient Received Moderate/Deep Sedation with Procedure: No - Discharge Plan Condition: Stable Disposition: HOME Patient Education Materials: Transient Ischemic Attack (ED) Referrals: Colt Beaulieu MD [Primary Care Provider] - 1 Day Additional Instructions: Monitor your blood pressure and take 1 aspirin daily. Follow up with your primary care physician in 1-2 days. Return to the emergency department with any new or worsening symptoms. - Attestation Statements Document Initiated by Scribe: Yes Documenting Scribe: Kianna Molina Provider For Whom Luanne is Documenting (Include Credential): Kenrick Su MD Scribe Attestation: Kianna Mao, yamilethed for Kenrick Su MD on 11/28/18 at 0874. Status of Scribe Document: Ready
[2018-11-28 22:23] LABS: ABS Basophils 0.1 10^3/ul (0-0.2); ABS Eosinophils 0 10^3/ul (0-0.6); ABS Lymphocytes 0.6 10^3/ul (1.0-4.8); ABS Monocytes 0.5 10^3/ul (0-0.8); ABS Neutrophils 3.8 10^3/ul (1.5-7.7); ABS Nucleated RBC 0 10^3/ul; Eosinophil % 0.9 %; Hematocrit 40 % (35-47); Hemoglobin 13.4 g/dl (12.0-16.0); Lymphocyte % 12.5 %; Mean Corpuscular HGB Conc 34 g/dl (31-36); Mean Corpuscular Hemoglobin 32 pg (27-31); Mean Corpuscular Volume 95 fL (80-97); Mean Platelet Volume 8.6 fL (7.4-10.4); Nucleated Red Blood Cells % 0; Platelet Count 243 10^3/ul (150-450); Red Cell Distribution Width 12 % (10.5-15); White Blood Count 5.1 10^3/ul (3.5-10.8)
[2018-11-28 22:31] LABS: Activated Partial Thrombo Time 31.6 seconds (26.0-36.3); INR 0.86 (0.77-1.02)
[2018-11-28 22:40] LABS: Albumin 4.1 g/dL (3.2-5.2); Albumin/Globulin Ratio 1.5 (1-3); BUN/Creatinine Ratio 38.5 (8-20); Calcium 9.7 mg/dL (8.6-10.3); EGFR African American 86.7 (>60); EGFR Non-African American 71.6 (>60); Globulin 2.7 g/dL (2-4); Magnesium 2.2 mg/dL (1.9-2.7); Potassium 4.4 mmol/L (3.5-5.0); Total Bilirubin 0.3 mg/dL (0.2-1.0); Total Protein 6.8 g/dL (6.4-8.9)
[2018-11-28] MEDS ORDERED: NS 0.9% 1000 ML** 1,000 ML IV ONE (22:54)
[2018-11-28] MEDS ORDERED: Iohexol 350* (CONTRAST) 500 ML MDV IV ONE (23:02)
[2018-11-28 23:05] LABS: TSH (Thyroid Stimulating Horm) 1.61 mcIU/mL (0.34-5.60)
[2018-11-28] MEDS ORDERED: Aspirin TAB* 325 MG PO ONE (23:51)
[2018-11-28] MEDS ORDERED: amLODIPine TAB* 5 MG PO ONE (23:57)
[2018-11-29 00:39] VITALS: BP 180/96
== END 2018-11-29 19:25 | disposition home or self-care (01) ==
LOC: ED 20:18
DX: G45.9 Transient cerebral ischemic attack, unspecified (principal); R41.0 Disorientation, unspecified; I10 Essential (primary) hypertension; H53.8 Other visual disturbances; R51 Headache
CPT/HCPCS: 36415; 70450; 70496; 70498; 80053; 83735; 84443; 84484; 85025; 85610; 85730; 93005; 96360; 99283; A9270-GY; Q9967

== ENCOUNTER 2019-10-07 01:47 | Emergency (ER) | payer MEDICARE, OTHER ==
[2019-10-07] MEDS ORDERED: NS 0.9% 1000 ML** 1,000 ML IV ONE (01:51)
--- NOTE | 2019-10-07 01:53 | ED ---
HPI Chest Pain - HPI Summary HPI Summary: The patient is a 79 y/o female arriving by ambulance to [facility] with a chief complaint of persistent right anterior CP onset around 2330 last night. She reports that she has been feeling unwell over the last week with productive cough and rhinorrhea. She thought that she was feeling better, but last night she developed right anterior CP that radiates into the upper right back. The pain kept her awake, so she decided to come to the ED. Currently, her symptoms are rated 5/10 in severity. The pain is aggravated with cough. She denies any fever, chills, SOB, change in appetite, or nausea. PMHx: colon cancer, Parkinson s, HTN. Nonsmoker, occasional EtOH, no substance use. Medications reviewed. Allergies noted. - History of Current Complaint Hx Obtained From: Patient Onset/Duration: Started Hours Ago, Still Present Time of Onset: 23:30 Timing: Constant Initial Severity: Moderate Current Severity: Moderate Pain Intensity: 5 Pain Scale Used: 0-10 Numeric Chest Pain Location: Right Anterior Chest Pain Radiates: Yes Chest Pain Radiates To:: Back Character: Dull/Aching Aggravating Factor(s): Other: - cough Alleviating Factor(s): Rest Associated Signs and Symptoms: Positive: Chest Pain, Productive Cough, Other: - rhinorrhea; Negative: change in appetite. Negative: Shortness of Breath, Fever , Chills, Nausea - Additional Pertinent History Primary Care Physician: [id number] - Allergy/Home Medications Allergies/Adverse Reactions: Allergies Allergy/AdvReac Type Severity Reaction Status Date / Time No Known Allergies Allergy Verified 10/07/19 01:52 PMH/Surg Hx/FS Hx/Imm Hx Endocrine/Hematology History: Denies: Hx Diabetes, Hx Systemic Lupus Erythematosus Cardiovascular History: Reports: Hx Hypertension - MEDS Denies: Hx Congestive Heart Failure, Hx Pacemaker/ICD History: Reports: Other Problems/Disorders - OCCASIONAL UTI, LAST TIME 2015 Denies: Hx Dialysis, Hx Renal Disease Musculoskeletal History: Reports: Hx Scoliosis, Other Musculoskeletal History - SCOLIOSIS-RIGHT LOWER BACK PAIN INTO THE HIP AT TIMES Denies: Hx Rheumatoid Arthritis Comment Only: Hx Back Problems - low back pain, Hx Osteoporosis - OSTEOPENIA Sensory History: Reports: Hx Cataracts - BILATERAL, Hx Contacts or Glasses Denies: Hx Hearing Aid Opthamlomology History: Reports: Hx Cataracts - BILATERAL, Hx Contacts or Glasses Neurological History: Reports: Other Neuro Impairments/Disorders - neuropathy Psychiatric History: Denies: Hx Panic Disorder - Cancer History Cancer Type, Location and Year: colon Hx Chemotherapy: No Hx Radiation Therapy: No - Surgical History Surgical History: Yes Surgery Procedure, Year, and Place: T&A as child 9 AGE 8; TUBAL LIGATION 1981 ; COLONOSCOPY 03/23/2016 3X POLYPS REMOVED WHICH WERE BENIGN; ADDITIONAL FINDING OF COLONOSCOPY THERE IS A POYPS OF SIGNIFICANCE TO BE REMOVED 04/15/2016 FOUND TO BE CANCEROUS. partial colectomy 03/2016,bilat cataracts. BLADDER SLING Hx Anesthesia Reactions: No - Family History Known Family History: Negative: Cardiac Disease, Hypertension, Diabetes - Social History Alcohol Use: Occasionally Alcohol Amount: glass of wine Hx Substance Use: No Substance Use Type: Reports: None Hx Tobacco Use: No Smoking Status (MU): Never Smoked Tobacco Review of Systems Negative: Fever, Chills Positive: Nasal Discharge Positive: Chest Pain - right anterior into back Positive: Cough - productive. Negative: Shortness Of Breath Negative: Nausea, Other - change in appetite All Other Systems Reviewed And Are Negative: Yes Physical Exam - Summary Physical Exam Summary: Appearance: Well-appearing, Well-nourished, lying in bed comfortably Skin: Warm, dry, no obvious rash Eyes: sclera anicteric, no conjunctival pallor ENT: mucous membranes moist, pharynx appears normal Neck: Supple, nontender Respiratory: Clear to auscultation, no signs of respiratory distress Cardiovascular: Normal S1, S2. No murmurs. Normal distal pulses in tibial and radial bilaterally. Abdomen: Soft, nontender, normal active bowel sounds present Musculoskeletal: Normal, Strength/ROM Intact Neurological: A&Ox3, awake and alert, mentation is normal, speech is fluent and appropriate Psychiatric: affect is normal, does not appear anxious or depressed Triage Information Reviewed: Yes Vital Signs Reviewed: Yes Procedures - Sedation Patient Received Moderate/Deep Sedation with Procedure: No Diagnostics - Laboratory Result Diagrams: 10/07/19 02:02 10/07/19 02:02 Lab Statement: Any lab studies that have been ordered have been reviewed, and results considered in the medical decision making process. - Radiology CXR Radiology Interpretation Completed By: ED Physician Summary of Radiographic Findings: No acute process. ED physician has reviewed and interpreted this report. Pending official read. - EKG 0151 Cardiac Rate: NL - 79 BPM EKG Rhythm: Sinus Rhythm Summary of EKG Findings: NSR at 79 BPM, P waves, QRS complex, and T waves are within normal limits, T waves and intervals are normal, no ischemic changes. This is a normal EKG. ED physician has reviewed and interpreted this EKG. Re-Evaluation - Re-Evaluation First Eval Re-Evaluation Time: 02:35 Comment: We discussed results and plan for discharge. Chest Pain Course/Dx - Course Course Of Treatment: 79 y/o female presenting by ambulance with concern for right anterior CP that radiates into the right upper back onset around 2330 last night that has persisted, following a week of URI symptoms. Physical exam is negative for acute findings. Blood work obtained to reveal absolute neutrophils of 8.9, absolute lymphocytes of 0.7, chloride of 99, BUN of 29, and CRP of 18.35. In the ED course, the patient was administered fluids. EKG at 0151 reveals NSR at 79 BPM without any ischemic changes. CXR, per my interpretation, reveals no acute process. Patient is safe for discharge with rx for Azithromycin. Patient understands and agrees with this plan. - Diagnoses Provider Diagnoses: Bronchitis, Chest wall pain Discharge ED - Sign-Out/Discharge Documenting (check all that apply): Patient Departure - Patient will be discharged home. - Discharge Plan Condition: Good Disposition: HOME Prescriptions: Azithromycin TAB* [Zithromax TAB (Z-GILMER) 250 mg #6 tabs] 250 mg PO DAILY #4 tab Patient Education Materials: Acute Bronchitis (ED), Chest Wall Pain (ED) Referrals: Patricia Joe MD [Primary Care Provider] - - Attestation Statements Document Initiated by Chavaibe: Yes Documenting Scribe: Concha Kam Provider For Whom Luanne is Documenting (Include Credential): Dr. Junior Fields MD Scribe Attestation: Concha Mao scribed for Dr. Junior Fields MD on 10/07/19 at 0239. Status of Scribe Document: Ready
[2019-10-07 02:09] LABS: ABS Basophils 0.1 10^3/ul (0-0.2); ABS Lymphocytes 0.7 10^3/ul (1.0-4.8); ABS Monocytes 0.7 10^3/ul (0-0.8); ABS Neutrophils 8.9 10^3/ul (1.5-7.7); Eosinophil % 0.4 %; Hematocrit 39 % (35-47); Hemoglobin 13.4 g/dL (12.0-16.0); Lymphocyte % 6.9 %; Mean Corpuscular HGB Conc 35 g/dL (31-36); Mean Corpuscular Hemoglobin 34 pg (27-31); Mean Corpuscular Volume 99 fL (80-97); Mean Platelet Volume 8.5 fL (7.4-10.4); Platelet Count 247 10^3/uL (150-450); Red Blood Count 3.91 10^6 /uL (3.70-4.87); Red Cell Distribution Width 12 % (10-15); White Blood Count 10.4 10^3/uL (3.5-10.8)
[2019-10-07 02:27] LABS: Albumin/Globulin Ratio 1.3 (1-3); BUN/Creatinine Ratio 35.4 (8-20); C Reactive Protein 18.35 mg/L (<8.01); Calcium 9.3 mg/dL (8.6-10.3); EGFR African American 81.6 (>60); EGFR Non-African American 67.4 (>60); Globulin 3.1 g/dL (2-4); Potassium 4.1 mmol/L (3.5-5.0); Total Bilirubin 0.4 mg/dL (0.2-1.0); Total Protein 7.1 g/dL (6.4-8.9)
[2019-10-07 02:29] LABS: Troponin I 0.01 ng/mL (<0.03)
[2019-10-07] MEDS ORDERED: Acetaminophen TAB* 325 MG PO ONE (02:34)
[2019-10-07] MEDS ORDERED: Azithromycin TAB* 250 MG PO ONE (02:37)
--- OUTSIDE RECORDS SUMMARY | 2019-10-07 02:47 | XMS REPORT | Continuity of Care Document ---
:1940 External Reference #:[id number] Author Name Rk Chacon M.D. (transmitted by agent of provider Dayanara Seals ) Address [address], [place] [address] Care Team Providers Name Role Phone Dinh Jiang MD - Orthopaedic Care Team Information Shareholder Surgery Lita Ward M.D. - Hematology & Care Team Information [facility] - Pain Care Team Information Shareholder [phone] Patricia Joe MD - Internal Medicine Care Team Information Shareholder Praful Overton MD - Endocrinology, Care Team Information Shareholder Diabetes & Metabolism Problems Active Problems Provider Date Malignant tumor of transverse colon Colt Beaulieu M.D.,FACP Onset: 03/25 Note: S/P laprascopic partial colectomy of transverse colon. T3 with 29 (-) lymph nodes. T3N0M0 adenocarcinoma. Is seeing Dr. Garcia Benign essential hypertension Colt Baeulieu M.D.,FACP Onset: 10/18/2007 Thyroid nodule Roosevelt Reyes NP Onset: 07/19/2016 Note: stable solid L thyroid nodule on 07/19/16 u/s radiolagist recommend f/u 6 mo w/ repeat u/s Scoliosis of lumbar spine Denise Stern M.D. Onset: 11/10/2016 Central serous chorioretinopathy Colt Beaulieu M.D.,FACP Onset: 2016 Scoliosis deformity of spine Vassilluana Chandra MD Onset: 02/28/2018 Lumbosacral spondylosis without Vassilios MD Prateek Onset: 02/28/2018 myelopathy Postmenopausal osteopenia Colt Beaulieu M.D.,FACP Onset: 04/05/2018 Parkinson's disease Rk Chacon M.D. Onset: 02/01/2019 Malaise and fatigue Rk Chacon M.D. Onset: 02/01/2019 [place] Rk Chacon M.D. Onset: 02/01/2019 Transient cerebral ischemia Rk Chacon M.D. Onset: 02/01/2019 Social History Type Date Description Comments Sex Unknown Tobacco Use Start: Unknown Never Smoked Cigarettes ETOH Use 04/05/2018 Occasionally consumes alcohol Tobacco Use Start: Unknown Patient has never smoked Recreational Drug Use Denies Drug Use Smoking Status Reviewed: 08/19/19 Patient has never smoked Enjoy Exercising Enjoys exercising swims Exercise Type/Frequency Exercises regularly Allergies, Adverse Reactions, Alerts Description No Known Drug Allergies Medications Active Medications SIG Qnty Indications Ordering Date Provider Felodipine ER 1 tablet by mouth 30tabs Colt Mcdermott 11/29/2018 2.5mg once daily 2.5mg Kerri Beaulieu,FACP Tablets ER 24HR Vitamin D 1 by mouth everyday Unknown 1000Unit Tablets Tylenol 2 tablets every 4 Unknown 325mg hours as needed for Capsules pain Myrbetriq 1 by mouth every day Unknown 50mg (rx'd by Tablets ER 24HR Leopoldo) Multi Vitamin Daily 1 by mouth every day Unknown has more B vitamins Tablets in it Gabapentin 1 capsule two times Unknown 100mg daily. Capsules Colace 1 tab every 12 hours Unknown 100mg as needed for Capsules constipation Advil as needed Unknown 200mg Capsules Immunizations CPT Code Status Date Vaccine Reaction Lot # [id number] Given 04/05/2018 Tetanus And Diptheria (Td) [id number] For Adult Use Preservative Free 98573 Given 08/03/2017 Influenza Virus Vaccine, Quadrivalent, Split, Preservative Free 68733 Given 08/14/2016 Influ Virus Vaccine, Quadrivalent, Split Virus, [place] [address] Given 07/16/2015 Influenza Virus Vaccine, no reaction noted. Pt [id number] Quadrivalent, Split, consented to flu Preservative Free injection and [place]. 52480 Given 07/16/2015 Pneumococcal Conjugate No reaction noted [id number] Vaccine 13 Valent For Intramuscular Use 10298 Given 06/25/2013 Flu Vaccine Split Virus [id number] Preservative Free For Indiv 3Yr Older 16282 Given 07/04/2012 Influenza Virus 3Yrs & Over 54232 Given 01/12/2012 Tdap - [id number] Tetanus/Diptheria/Acellular Pertussis Q2038 Given 06/13/2011 Fluzone Vaccine [id number] 34604 Given 06/03/2008 Zoster (Zostavax) 33205 Given 07/15/2003 Pneumonia Vaccine 21501 Given 07/15/2003 Pneumonia Vaccine Vital Signs Date Vital Result Comment 08/19/2019 1:24pm Height 63.5 inches 5'3.50" Weight 131.00 lb Heart Rate 78 /min BP Systolic 118 mmHg BP Diastolic 72 mmHg BMI (Body Mass Index) 22.8 kg/m2 05/23/2019 10:57am Height 63.5 inches 5'3.50" Weight 130.00 lb Heart Rate 63 /min BP Systolic 114 mmHg BP Diastolic 68 mmHg BMI (Body Mass Index) 22.7 kg/m2 Results Test Acquired Date Facility Test Result H/L Range Note Comp Metabolic 07/15/2019 [facility] Sodium 138 mmol/L Normal 135-[address] [place] [address] [phone] Potassium 4.3 mmol/L Normal 3.5-5.0 Chloride 100 mmol/L Low 101-111 Co2 Carbon Dioxide 33 mmol/L High 22-32 Anion Gap 5 mmol/L Normal 2-11 Glucose 57 mg/dL Low 70-100 Blood Urea Nitrogen 26 mg/dL High 6-24 Creatinine 0.93 mg/dL Normal 0.51-0.95 BUN/Creatinine Ratio 28.0 High 8-20 Calcium 9.4 mg/dL Normal 8.6-10.3 Total Protein 6.6 g/dL Normal 6.4-8.9 Albumin 4.2 g/dL Normal 3.2-5.2 Globulin 2.4 g/dL Normal 2-4 Albumin/Globulin Ratio 1.8 Normal 1-3 Total Bilirubin 0.40 mg/dL Normal 0.2-1.0 Alkaline Phosphatase 85 U/L Normal 34-104 Alt 19 U/L Normal 7-52 Ast 18 U/L Normal 13-39 Egfr Non- 58.3 >60 Egfr 70.6 >60 1 Laboratory 07/15/2019 [facility] Carcinoembryonic 3.8 Normal 0.1-5.0 2 test finding [address] Antigen Cea ng/mL [place], [place] [id number] [phone] Laboratory 03/08/2019 [facility] Chromogranin-A 133 Abnormal < 93 3 test finding [address] ng/[place] [address] [phone] 1 Because ethnic data is not always readily [...] 15-29 5 Kidney failure <15 (or dialysis) 2 Nonsmokers: < 2.9 ng/mL Some smokers may have elevated CEA, usually <5.0 ng/mL. Serum markers are not specific for malignancy, and values may vary by method. The testing method is an immunoenzymatic assay flight operation coordinator by [employer] performed on [employer] DXI 600. Do not interpret serum CEA levels as absolute evidence of the presence or the absence of malignant disease. Use serum CEA in conjunction with information from the clinical evaluation of the patient and other diagnostic procedures. 3 Impaired renal or hepatic function or treatment with proton pump inhibitors may result in artifactual elevations of Chromogranin A. ADDITIONAL INFORMATION This test was developed and its performance characteristics determined by [facility] in a manner consistent with CLIA requirements. This test has not been cleared or approved by the U.S. Food and Drug Administration. The testing method is a homogeneous time-resolved immunofluorescent assay. Values obtained with different assay methods or kits may be different and cannot be used interchangeably. Test results cannot be interpreted as absolute evidence for the presence or absence of malignant disease. Test Performed by: [facility] [place] [facility] [address] [place] [address] Procedures Date Code Description Status 08/27/2018 [id number] Mammogram Completed 06/13/2018 [id number] Colonoscopy Completed 08/22/2017 [id number] Colonoscopy Completed 04/04/2017 [id number] Bone Mineral Density Test Completed 02/14/2017 [id number] Colonoscopy Completed 08/22/2016 [id number] Mammogram Completed 03/23/2016 [id number] Colonoscopy Completed 08/17/2015 [id number] Bone Mineral Density Test Completed 08/10/2015 [id number] Mammogram Completed 08/15/2014 [id number] Mammogram Completed 06/21/2013 [id number] Mammogram Completed 06/09/2011 [id number] Mammogram Completed 02/16/2011 [id number] Colonoscopy Completed 07/13/2009 [id number] Mammogram Completed 07/03/2008 [id number] Mammogram Completed 01/23/2006 [id number] Colonoscopy Completed Medical Devices Description No Information Available Encounters Type Date Location Provider Dx Diagnosis Office Visit 05/23/2019 [facility] Sosa, G20 Parkinson's 11:00a [facility] disease R53.83 Other fatigue Z86.73 Prsnl hx of TIA (TIA), and cereb infrc w/o resid deficits Office Visit 03/14/2019 10:00a [facility]ban G45.9 [facility] cerebral ischemic attack, unspecified R23.2 [place] R53.83 Other fatigue G20 Parkinson's disease I95.1 Orthostatic hypotension Z86.73 Prsnl hx of TIA (TIA), and cereb infrc w/o resid deficits Assessments Date Code Description Provider 08/19/2019 G20 Parkinson's disease Rk Chacon M.D. 08/19/2019 G45.9 Transient cerebral ischemic attack, Rk Chacon M.D. unspecified 05/30/2019 W19.xxxA Unspecified fall, initial encounter Rk Chacon M.D. 05/30/2019 M47.26 Other spondylosis with radiculopathy, Rk Chacon M.D. lumbar region 05/23/2019 G20 Parkinson's disease Iban Sosa, N.P. 05/23/2019 R53.83 Other fatigue Iban Sosa, N.P. 05/23/2019 Z86.73 Personal history of transient ischemic Iban Sosa, N.P. attack (TIA), and cerebral infarction without residual deficits 03/14/2019 G45.9 Transient cerebral ischemic attack, Iban Sosa, N.P. unspecified 03/14/2019 R23.2 [place] Iban Sosa, N.P. 03/14/2019 R53.83 Other fatigue Iban Sosa, N.P. 03/14/2019 G20 Parkinson's disease Iban Sosa, N.P. 03/14/2019 I95.1 Orthostatic hypotension Iban Sosa, N.P. 03/14/2019 Z86.73 Personal history of transient ischemic Iban Sosa, N.P. attack (TIA), and cer Plan of Treatment Future Appointment(s):01/02/2020 2:15 pm - kR Chacon M.D. at [facility]08/19/2019 - Rk Chacon M.D.G20 Parkinson's diseaseFollow up:Follow up in 4 xgyyrtV21.9 Transient cerebral ischemic attack, unspecified Functional Status Description No Information Available Mental Status Description No Information Available Referrals Description No Information Available
--- OUTSIDE RECORDS SUMMARY | 2019-10-07 02:47 | XMS REPORT | Continuity of Care Document ---
:1940 External Reference #:[id number] Author Name Elieser Vgea M.D. Address [address] [place] [address] Care Team Providers Name Role Phone Colt Beaulieu MD - Internal Care Team Information Recordings Librarian [phone] Medicine Problems Active Problems Provider Date Central serous chorioretinopathy Colt Beaulieu MD Onset: 08/28/2017 Scoliosis of lumbar spine Denise Stern MD Onset: 11/10/2016 Thyroid nodule Roosevelt Reyes NP Onset: 07/19/2016 Malignant tumor of transverse colon Colt Beaulieu MD Onset: 03/25/2016 Osteochondropathy Colt Beaulieu MD Onset: 10/18/2007 Benign essential hypertension Colt Beaulieu MD Onset: 10/18/2007 Social History Type Date Description Comments Sex Unknown ETOH Use Occasionally consumes alcohol Tobacco Use Start: Unknown Patient has never smoked Smoking Status Reviewed: 08/07/19 Patient has never smoked Allergies, Adverse Reactions, Alerts Description No Known Drug Allergies Medications Active Medications SIG Qnty Indications Ordering Provider Date Vitamin D 1 by mouth Unknown 1000Unit everyday Tablets Tylenol 2 tablets every 4 Unknown 325mg Capsules hours as needed for pain Myrbetriq Take One Tablet By Unknown 50mg Tablets Mouth Every Day ER 24HR Swallow Whole With Water. DO Not Crush Chew And / Or Divide Gabapentin Patricia Joe MD 100mg Capsules Felodipine ER Take One Tablet By Unknown 2.5mg Mouth Every Day Tablets ER 24HR Immunizations CPT Code Status Date Vaccine Lot # [id number] Given 08/03/2017 Influenza Virus Vaccine, Quadrivalent, Split, Preservative Free 35474 Given 07/16/2015 Influenza Virus Vaccine, Quadrivalent, Split, Preservative Free 42969 Given 07/16/2015 Pneumococcal Conjugate Vaccine 13 Valent For Intramuscular Use 28464 Given 06/25/2013 Influenza Virus Vaccine Split Virus Use For Individual 3Yr Older 13376 Given 07/04/2012 Influenza Virus Split 3 Yrs And Above For Intramuscular Use 24326 Given 01/12/2012 Tetanus, Diphtheria Toxoids/Acellular Pertussis Vaccine 7 Or > [id number] Given 06/13/2011 Influenza Vaccine (Fluzone) Administered Age 3 And Older 91573 Given 06/03/2008 Zoster Shingles Vaccine For Subcutaneous Injection 09180 Given 07/15/2003 Pneumococcal Vaccine 2Yrs Or Older 19851 Given 07/15/2003 Pneumococcal Vaccine 2Yrs Or Older Vital Signs Date Vital Result Comment 08/08/2019 8:30am Intraocular Pressure Right Eye 17 mmHg Intraocular Pressure Left Eye 17 mmHg 08/20/2018 11:16am Intraocular Pressure Right Eye 16 mmHg Intraocular Pressure Left Eye 16 mmHg Results Description No Information Available Procedures Date Code Description Status 08/08/2019 43659 Fundus Photography W/Interpretation & Report Completed 08/08/2019 77339 Ophthalmoscopy Subsequent Completed 08/08/2019 25829 Refraction Completed 08/08/2019 88199 Eye Exam Est Comprehensive Completed Medical Devices Description No Information Available Encounters Description No Information Available Assessments Date Code Description Provider 08/08/2019 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 08/08/2019 Z96.1 Presence of intraocular lens Elieser Vega M.D. Plan of Treatment 08/08/2019 - Elieser Vega M.D.H35.373 Puckering of macula, sneglfylzR89.12 Fourth [trochlear] nerve palsy, left eyeZ96.1 Presence of intraocular lensFollow up:6 mos oct mac Functional Status Description No Information Available Mental Status Description No Information Available Referrals Description No Information Available
[2019-10-07 02:57] VITALS: BP 145/82
== END 2019-10-07 02:56 | disposition home or self-care (01) ==
LOC: ED 01:47
DX: J40 Bronchitis, not specified as acute or chronic (principal); R07.89 Other chest pain; I10 Essential (primary) hypertension
CPT/HCPCS: 36415; 71046; 80053; 83605; 84484; 85025; 86140; 87040; 93005; 96360; 99283; A9270-GY